=== PATIENT | female | born 1940 | race Caucasian/White ===

== ENCOUNTER 2016-10-13 13:02 | Emergency (ER) | payer BC ==
[~2016-10-13] VITALS: Ht 165.1 cm; Wt 137.9 kg
[~2016-10-13 13:02] MED LIST: ASPEC81 PO; CMD5 PO; FRS/40 PO; LEVO100T35 PO; LISI5TAB3 PO; LNX125 PO; METO100T44 PO; PARO1TAB27 PO; WARF7.5T PO
[2016-10-13 13:05] VITALS: Ht 165.1 cm; Wt 137.9 kg
[2016-10-13] MEDS ORDERED: OXYMETAZOLINE HCL 0.05% NA SPR 15 ML BTL ONE (13:06)
[2016-10-13] MEDS ORDERED: CMD5 PO (13:26)
[2016-10-13] MEDS ORDERED: LEVO100T PO (13:26)
[2016-10-13] MEDS ORDERED: LSN5 PO (13:26)
[2016-10-13] MEDS ORDERED: ASPI-435 PO (13:26)
[2016-10-13 13:31] LABS: MEAN CELL VOLUME 96.3 fL (80-100); MEAN CORPUSCULAR HEMOGLOBIN 29.8 pg (25-34); MEAN PLATELET VOLUME 9.2 fL (7.4-10.4); PLATELET COUNT 273 K/uL (130-400); RED BLOOD COUNT 4.36 M/uL (4.2-5.4); WHITE BLOOD COUNT 8.38 K/uL (4.8-10.8)
--- NOTE | 2016-10-13 13:31 | EMERGENCY ROOM VISIT NOTE ---
History Report prepared by Mireille: Jayleen Shepherd Under the Supervision of: Dr. Daniel Rios M.D. First contact with patient: 13:06 Stated Complaint: NOSE BLEED History of Present Illness The patient is a 76 year old female who presents to the Emergency Room with complaints of a constant epistaxis from the left naris since yesterday. The patient states that she has a history of a previous epistaxis 1 year ago. She states that the nosebleed came on suddenly and denies any recent cold. Per the EMT, the patient has had a clamp on her nose with no relief. The patient states that she takes Warfarin and 81 mg of aspirin daily. She states that she last had her INR level checked last week. The patient reports that she has also been coughing up blood. She denies any chest pain, shortness of breath, nausea, extremity pain, or abdominal pain. Source of History: patient, EMS Onset: yesterday Position: nose Quality: other (epistaxis) Timing: constant Associated Symptoms: No SOB, No abdominal pain, No chest pain, No nausea Note: denies extremity pain Review of Systems All systems have been listed, reviewed, and are negative other than those previously mentioned. Please see Additional Medical History Sheet. Past Medical & Surgical Medical Problems: (1) Atrial fibrillation (2) Benign hypertension (3) heart disease (4) Pacemaker Surgical Problems: (1) History of knee replacement Family History Cancer Diabetes mellitus Heart disease Hypertension Social History Smoking Status: Never Smoker Alcohol Use: none Drug Use: none Marital Status: Housing Status: lives with significant other Occupation Status: retired Current/Historical Medications Scheduled Aspirin (Aspirin 81), 81 MG PO DAILY Cephalexin Monohydrate (Keflex), 500 MG PO QID Digoxin (Digoxin), 125 MCG PO DAILY Furosemide (Lasix), 40 MG PO DAILY Levothyroxine Sodium (Synthroid), 100 MCG PO DAILY Lisinopril (Lisinopril), 5 MG PO DAILY Metoprolol Succ (Toprol Xl) (Toprol-Xl ), 200 MG PO BID Paroxetine (Paxil), 20 MG PO DAILY Warfarin Sod (Coumadin), 5 MG PO DAILY Scheduled PRN Lorazepam (Ativan), 0.5 MG PO Q6H PRN for Anxiety/Insomnia Allergies Coded Allergies: No Known Allergies (Verified , 10/13/16) Physical Exam Vital Signs Date Time Temp Pulse Resp B/P Pulse Ox O2 Delivery O2 Flow Rate FiO2 10/13/16 18:06 37.0 111 18 129/102 93 10/13/16 18:03 111 18 129/102 93 Room Air 10/13/16 17:15 127 18 129/107 92 Room Air 10/13/16 15:33 107 20 92 Room Air 2.0 137/98 10/13/16 14:18 127 18 137/113 92 Room Air 10/13/16 13:05 37.0 119 28 132/107 94 Room Air Physical Exam GENERAL: Patient awake, alert, oriented x 3. Patient follows commands. Patient does not appear toxic. Patient is adequately hydrated and well- nourished. SKIN: No erythema, pallor, cyanosis or rash HEENT: Normal head, pupils equal, reactive to light and accommodation. Oozing from left nares and dry blood on face and chest. Oral cavity and posterior pharynx appear normal. Neck: Without adenopathy, no neck vein distention. LUNGS: Rhonchi noted bilaterally No wheezes, no rales. HEART: No murmurs. No gallops. No rubs ABDOMEN: No masses, no rebound, no hepatomegaly or splenomegaly.Soft, non- tender. EXTREMITIES: No signs of trauma. 2+ non pitting pedal and pretibial edema. No calf or thigh tenderness. NEUROLOGIC: Cranial nerves II-XII within normal limits. No gross motor sensory function deficits. Medical Decision & Procedures ER Provider Diagnostic Interpretation: X ray results are stated below per my interpretation and the radiologist's interpretation. CHEST 2 VIEWS ROUTINE HISTORY: Abnormal breath sounds. rhonchi COMPARISON: Chest 02/04/2013. FINDINGS: No pneumothorax. The heart remains moderately enlarged. Left-sided dual-chamber pacemaker. No evidence for pulmonary edema. No new focal lung consolidations. No pleural effusions. No pneumothorax. IMPRESSION: Stable cardiomegaly. No acute process within the chest. Electronically signed by: Israel Denis M.D. 10/13/2016 1:54 PM Dictated Date/Time: 10/13/2016 1:53 PM Laboratory Results 10/13/16 13:20 10/13/16 15:00 10/13/16 13:20 Test 10/13/16 13:20 10/13/16 13:56 Red Blood Count 4.36 M/uL (4.2-5.4) Mean Corpuscular Volume 96.3 fL (80-100) Mean Corpuscular Hemoglobin 29.8 pg (25-34) Mean Corpuscular Hemoglobin Concent 31.0 g/dl (32-36) RDW Standard Deviation 52.6 fL (36.4-46.3) RDW Coefficient of Variation 14.8 % (11.5-14.5) Mean Platelet Volume 9.2 fL (7.4-10.4) Anion Gap 3.0 mmol/L (3-11) Est Creatinine Clear Calc Drug Dose 81.3 ml/min Estimated GFR () 79.4 Estimated GFR (Non- 68.5 BUN/Creatinine Ratio 20.8 (10-20) Calcium Level 8.3 mg/dl (8.5-10.1) Prothrombin Time 25.7 SECONDS (9.0-12.0) Prothromb Time International Ratio 2.3 (0.9-1.1) Activated Partial Thromboplast Time 37.8 SECONDS (21.0-31.0) Partial Thromboplastin Ratio 1.5 Laboratory results as stated above per my review. Medications Administered Medications (Trade) Dose Ordered Sig/Bertha Route Start Time Stop Time Status Last Admin Dose Admin Oxymetazoline HCl (Afrin 0.05% Nasal [place]) 75 sprays STK-MED ONCE .ROUTE 10/13/16 13:06 10/13/16 13:07 DC 10/13/16 13:10 2 SPRAYS Lorazepam (Ativan Inj) 1 mg NOW STAT IV 10/13/16 14:59 10/13/16 15:00 DC 10/13/16 14:59 1 MG Lorazepam (Ativan 1MG Home Pack) 0.5 homepack UD ONCE PO 10/13/16 17:15 10/13/16 17:17 DC 10/13/16 17:47 0.5 HOMEPACK Cephalexin Monohydrate (Keflex Cap) 500 mg NOW ONCE PO 10/13/16 17:15 10/13/16 17:17 DC 10/13/16 17:47 500 MG ED Course 1307: Past medical records reviewed. The patient was evaluated in room B8. A complete history and physical examination was performed. 1306: Ordered Oxymetazoline HCl 75 sprays .ROUTE. 1425: Per nursing staff, the patient's nose continues to bleed persistently. I went to the patient's bedside at this time for further assistance. Upon evaluation, the patient was gushing blood out of the left naris and the Afrin protocol did not work. I could not attempt to cauterize the patient's nose due to the bleeding so a 7.5 rhino rocket was placed up the patient's left naris. 1433: Ordered Ativan Inj 2 mg .ROUTE. 1654: I reevaluated the patient and she is resting comfortably, I discussed the exam findings with her and I discussed the treatment plan. She verbalized complete understanding and agreement. She is ready to go home. 1715: Ordered Keflex Cap 500 mg PO, Lorazepam 0.5 homepack PO. Medical Decision Nurses notes reviewed. Medical history sheet reviewed. Differential diagnosis includes but is not limited to: epistaxis, warfarin induced coagulopathy, aspiration pneumonia, and anemia. Patient had a large amount of bleeding from the left nares. I was unable to find the source of the bleed due to the heavy bleeding. The patient became very panicky and required Ativan. The first pack was unsuccessful in stopping the bleeding. I was able to place a 7.5 Rhino Rocket as deep as possible into the left nares. A small part of it remains sticking out of her nose. The patient was monitored closely. The patient will be started on antibiotics. She was instructed to stop the Coumadin for 3 days. She was also instructed to return here for packing removal in 3 days. Chest x-ray was obtained due to the rhonchi initially auscultated. That chest x-ray reveals no infiltrates or signs of aspiration. The patient was maintained on oxygen during the heavy bleeding episode but prior to discharge she was taken off and was in the low 90s on room air. Final hematocrit was 41%. Blood Pressure Screening: Patient was found to have an elevated blood pressure and was referred to their primary doctor for recheck and further treatment. Medication Reconciliation: I attest that I have personally reviewed the patient' s current medication list. Impression Primary Impression: Epistaxis Additional Impression: Panic attack Scribe Attestation The scribe's documentation has been prepared under my direction and personally reviewed by me in its entirety. I confirm that the note above accurately reflects all work, treatment, procedures, and medical decision making performed by me. Departure Information Dispostion Home / Self-Care Prescriptions Lorazepam (ATIVAN) 0.5 Mg Tab 0.5 MG PO Q6H Y for Anxiety/Insomnia, #10 TAB Prov: Daniel Rios M.D. 10/13/16 Cephalexin Monohydrate (Keflex) 500 Mg Cap 500 MG PO QID for 3 Days, #10 CAP Prov: Daniel Rios M.D. 10/13/16 Referrals Juan Yo D.O. (PCP) Carla Nath M.D. Forms HOME CARE DOCUMENTATION FORM, IMPORTANT VISIT INFORMATION, WORK / SCHOOL INSTRUCTIONS Patient Instructions ED Kathryn, My [facility] Additional Instructions 1 Keflex 4 times a day Stop Coumadin for 3 days. Return here in 3 days for removal of the pack. 1 Ativan every 6 hours as needed for panic attack. Continue all of your current medications as prescribed except for Coumadin. Problem Qualifiers
[2016-10-13 13:45] LABS: BUN/CREATININE RATIO 20.8 (10-20); CALCIUM 8.3 mg/dl (8.5-10.1); CREATININE 0.83 mg/dl (0.60-1.20); POTASSIUM 4.5 mmol/L (3.5-5.1)
--- NOTE | 2016-10-13 13:56 | DIAGNOSTIC IMAGING REPORT ---
CHEST 2 VIEWS ROUTINE HISTORY: Abnormal breath sounds. rhonchi COMPARISON: Chest 02/04/2013. FINDINGS: No pneumothorax. The heart remains moderately enlarged. Left-sided dual-chamber pacemaker. No evidence for pulmonary edema. No new focal lung consolidations. No pleural effusions. No pneumothorax. IMPRESSION: Stable cardiomegaly. No acute process within the chest. Electronically signed by: Israel Denis M.D. 10/13/2016 1:54 PM Dictated Date/Time: 10/13/2016 1:53 PM
[2016-10-13 14:14] LABS: INR 2.3 (0.9-1.1); PARTIAL THROMBOPLASTIN RATIO 1.5; PROTHROMBIN TIME (PATIENT) 25.7 SECONDS (9.0-12.0)
[2016-10-13] MEDS ORDERED: LORAZEPAM 2 MG/ML 1 ML VIAL ONE (14:33)
[2016-10-13] MEDS ORDERED: LORAZEPAM 2 MG/ML 1 ML VIAL IV STA (14:59)
[2016-10-13] MEDS ORDERED: CEPH500C PO (17:10)
[2016-10-13] MEDS ORDERED: LORA-741 PO (17:11)
[2016-10-13] MEDS ORDERED: CEPHALEXIN MONOHYDRATE 250 MG CAP PO ONE (17:15)
[2016-10-13] MEDS ORDERED: ATIVAN 1MG HOMEPACK PO ONE (17:15)
[2016-10-13 18:06] VITALS: BP 129/102; PULSE 111; TEMP 37; O2SAT 93
== END 2016-10-13 18:08 | disposition home or self-care (01) ==
LOC: EDBD 13:02 → C.EDB 13:03
DX: R04.0 Epistaxis (principal); F41.0 Panic disorder [episodic paroxysmal anxiety]; I48.91 Unspecified atrial fibrillation; I10 Essential (primary) hypertension; I51.9 Heart disease, unspecified; Z95.0 Presence of cardiac pacemaker; Z96.659 Presence of unspecified artificial knee joint; Z80.9 Family history of malignant neoplasm, unspecified; Z83.3 Family history of diabetes mellitus; Z82.49 Family history of ischemic heart disease and other diseases of the circulatory system; Z79.82 Long term (current) use of aspirin; Z79.01 Long term (current) use of anticoagulants; Z79.899 Other long term (current) drug therapy

== ENCOUNTER 2016-10-16 09:37 | Inpatient (IN) | payer BC, OTHER ==
[2016-10-16] VITALS (10 sets, daily range): BP systolic 87–137; BP diastolic 54–96; PULSE 87–152; TEMP 36.3–36.4; O2SAT 87–98; Ht 165.1 cm; Wt 131.4 kg
[~2016-10-16] VITALS: Ht 165.1 cm; Wt 131.4 kg
[~2016-10-16 09:37] MED LIST changes: -ASPEC81 PO; +ASPI-435 PO; +CEPH500C PO; +LEVO100T PO; -LEVO100T35 PO; -LISI5TAB3 PO; +LORA-741 PO; +LSN5 PO; -WARF7.5T PO
[2016-10-16] MEDS ORDERED: SODIUM CHLORIDE 0.9% 1000ML 1,000 ML IV STA (10:11)
--- NOTE | 2016-10-16 10:13 | EMERGENCY ROOM VISIT NOTE ---
History Report prepared by Mireille: Shaquille Cordoba Under the Supervision of: Dr. Lyudmila Che D.O. First contact with patient: 09:59 Chief Complaint: PACKING REMOVAL Stated Complaint: REMOVAL OF PACKING FROM NOSE Nursing Triage Summary: pt reports packing place din left nare on thursday here to get removed History of Present Illness The patient is a 76 year old female who presents to the Emergency Room for a persistent need for a packing removal that was inserted 3 days ago. She says that she had a packing placed in her left nary, and is here to get it removed. The patient notes that she has not had any more bleeding. However, the patient is having a fast heart rate here, per the nursing staff. The patient reports that she has never been told that she has had an abnormal heart rate. She last saw her family doctor last month. The patient says that she has had a bit of chest discomfort that started recently. She denies any fevers, vomiting, diarrhea, or leg swelling. She also denies any fluttering, skipping, or racing. The patient says she takes Lorazepam, and took one an hour ago. She also takes a thyroid pill and water pills. Per the patient's , the patient has had a lot of bruising recently, including one on her abdomen. She does not recall ever bumping into anything, and she says that the bruising does not hurt. She reports no history of heart problems. She does not drink alcohol, and she has never smoked. Pt seen here 2 days ago for nosebleed. Had packing placed. Told to hold her coumadin and have her INR rechecked. Source of History: patient, spouse/significant other Onset: 3 days ago Position: nose (left nare) Quality: other (packing removal) Associated Symptoms: No fevers, No vomiting, No diarrhea Note: Associated symptoms: Chest discomfort recently. Bruise on abdomen. Denies leg swelling, fluttering, skipping, or racing. Review of Systems See HPI for pertinent positives & negatives. A total of 10 systems reviewed and were otherwise negative. Past Medical & Surgical Medical Problems: (1) Atrial fibrillation (2) Benign hypertension (3) heart disease (4) Pacemaker Surgical Problems: (1) History of knee replacement Family History Cancer Diabetes mellitus Heart disease Hypertension Social History Smoking Status: Never Smoker Alcohol Use: none Drug Use: none Marital Status: Housing Status: lives with significant other Occupation Status: retired Current/Historical Medications Scheduled Aspirin (Aspirin 81), 81 MG PO DAILY Digoxin (Digoxin), 0.125 MG PO DAILY Furosemide (Lasix), 80 MG PO DAILY Levothyroxine Sodium (Synthroid), 1 TAB PO DAILY Lisinopril (Prinivil), 1 TAB PO DAILY Metoprolol Succ (Toprol Xl) (Toprol-Xl ), 200 MG PO BID Nortriptyline Hcl (Pamelor), 1 CAP PO HS Paroxetine (Paxil), 20 MG PO DAILY Spironolactone (Spironolactone), 25 MG PO DAILY Warfarin Sod (Coumadin), 5 MG PO DAILY Scheduled PRN Lorazepam (Ativan), 0.5 MG PO Q6H PRN for Anxiety/Insomnia Allergies Coded Allergies: No Known Allergies (Verified , 10/13/16) Physical Exam Vital Signs Date Time Temp Pulse Resp B/P (MAP) Pulse Ox O2 Delivery O2 Flow Rate FiO2 10/16/16 14:08 147 20 103/85 92 Room Air 10/16/16 14:01 140 20 125/84 96 Room Air 10/16/16 13:45 156 18 99/73 95 Room Air 10/16/16 13:40 151 20 106/86 94 Room Air 10/16/16 13:18 148 32 125/77 96 Room Air 10/16/16 12:50 143 22 115/87 95 Room Air 10/16/16 11:54 141 22 103/91 98 Room Air 10/16/16 11:15 166 22 119/85 96 Room Air 10/16/16 11:14 172 119/85 10/16/16 10:54 168 24 123/88 97 Room Air 10/16/16 10:15 176 26 130/89 95 Room Air 10/16/16 10:15 172 10/16/16 10:14 37.3 185 26 117/80 95 Room Air 10/16/16 10:06 95 Room Air 10/16/16 10:00 Room Air 10/16/16 09:45 37.3 185 26 117/80 97 Room Air Physical Exam GENERAL: alert, very anxious appearing, well nourished, no distress, non-toxic EYE EXAM: normal conjunctiva, PERRL and EOM's grossly intact OROPHARYNX: no exudate, no erythema, lips, buccal mucosa, and tongue normal and mucous membranes are dry; nasal packing of left nare removed without any recurrence of epistaxis. NECK: supple, no nuchal rigidity, no adenopathy, non-tender LUNGS: Breath sounds decreased, no wheezes, rhonchi, or rales HEART: Heart rate fast and irregular. ABDOMEN: abdomen soft, non-tender, normo-active bowel sounds, no masses, no rebound or guarding. BACK: Back is symmetrical on inspection and there is no deformity, no midline tenderness, no CVA tenderness. SKIN: Scattered regions of ecchymosis noted on bilateral upper extremities, and one spot on right abdomen UPPER EXTREMITIES: upper extremities are grossly normal. LOWER EXTREMITIES: No pitting edema. NEURO EXAM: Normal sensorium, cranial nerves II-XII grossly intact, normal speech, no gross weakness of arms, no gross weakness of legs. No drift. Finger to nose intact. Gross sensation intact. Medical Decision & Procedures ER Provider Diagnostic Interpretation: X-ray results have been interpreted by the radiologist and reviewed by me. CHEST ONE VIEW PORTABLE CLINICAL HISTORY: Shortness of breath. COMPARISON STUDY: Chest radiograph October 13, 2016. FINDINGS: This study is compromised by portable technique with suboptimal penetration. There is no pneumothorax. A dual lead left pacemaker is in place. Hazy bibasilar opacities are probably artifactual. There is no evidence of pulmonary edema. A left pleural effusion would be difficult to exclude. IMPRESSION: 1. Technically compromised exam due to portable technique with suboptimal penetration related to body habitus. 2. Hazy left basilar opacity which could reflect atelectasis, consolidation, atelectasis or pleural fluid. 3. Cardiomegaly without evidence of pulmonary edema. Electronically signed by: Ron Samaniego M.D. 10/16/2016 10:33 AM Dictated Date/Time: 10/16/2016 10:31 AM Laboratory Results 10/16/16 10:15 Test 10/16/16 10:10 10/16/16 10:15 Digoxin Level 0.1 ng/ml (0.8-2.0) Prothrombin Time 13.6 SECONDS (9.0-12.0) Prothromb Time International Ratio 1.3 (0.9-1.1) D-Dimer 250 ug/L FEU (0-500) Anion Gap 6.0 mmol/L (3-11) Est Creatinine Clear Calc Drug Dose 76.7 ml/min Estimated GFR () 77.1 Estimated GFR (Non- 66.6 BUN/Creatinine Ratio 15.2 (10-20) Calcium Level 8.1 mg/dl (8.5-10.1) Total Bilirubin 1.2 mg/dl (0.2-1) Aspartate Amino Transf (AST/SGOT) 15 U/L (15-37) Alanine Aminotransferase (ALT/SGPT) 19 U/L (12-78) Alkaline Phosphatase 63 U/L (45-117) Pro-B-Type Natriuretic Peptide 1767 pg/ml (0-1800) Total Protein 7.2 gm/dl (6.4-8.2) Albumin 3.4 gm/dl (3.4-5.0) Globulin 3.8 gm/dl (2.5-4.0) Albumin/Globulin Ratio 0.9 (0.9-2) Thyroid Stimulating Hormone (TSH) 6.580 uIu/ml (0.300-4.500) Laboratory results per my review. Medications Administered Medications (Trade) Dose Ordered Sig/Bertha Route Start Time Stop Time Status Last Admin Dose Admin Sodium Chloride 1,000 ml @ 125 mls/hr Q8H STAT IV 10/16/16 10:11 10/16/16 15:05 DC 10/16/16 10:11 125 MLS/HR Lorazepam 0.25 mg/ Syringe 0.25 ml @ 1 mls/min NOW ONCE IV 10/16/16 10:45 10/16/16 10:46 DC 10/16/16 10:54 1 MLS/MIN Lorazepam (Ativan Inj) 0.5 mg NOW STAT IV 10/16/16 11:07 10/16/16 11:08 DC 10/16/16 11:15 0.5 MG Metoprolol Tartrate (Lopressor Iv) 5 mg NOW STAT IV 10/16/16 11:07 10/16/16 11:08 DC 10/16/16 11:14 5 MG Diltiazem HCl 125 mg/Dextrose 125 ml @ 0 mls/hr Q0M PRN IV 10/16/16 13:00 10/16/16 15:55 DC 10/16/16 13:11 5 MLS/HR Diltiazem HCl (Cardizem Inj) 25 mg STK-MED ONCE .ROUTE 10/16/16 12:51 10/16/16 12:52 DC 10/16/16 12:54 10 MG Enoxaparin Sodium (Lovenox Inj) 130 mg 1300 ONCE SQ 10/16/16 13:00 10/16/16 13:01 DC 10/16/16 13:14 130 MG ECG Indication: tachycardia Rate (beats per minute): 183 Rhythm: atrial fibrillation Findings: PVC (occasional), no acute ischemic change, left axis deviation, other (normal QRS and QTC) Change: no significant change (compared to June 23 2007) ED Course 1002: The patient was evaluated in room A2. A complete history and physical exam was performed. 1011: Ordered NSS 1000 ml @ 125 mls/hr IV. 1045: Ordered Lorazepam 0.25mg/Syringe 0.25 ml @ 1 mls/min IV. 1056: I reevaluated the patient and her heart rate is still fast but a little better. She told me that she has a pacemaker and is taking a blood thinner. 1107: Ordered Lopressor IV 5 mg IV, Ativan Inj 0.5 mg IV. 1226: I reevaluated the patient and her rate is better, and she feels okay. 1247: Ordered Cardizem Bolus/Drip 1 ea IV. 1254: Ordered Lovenox 1 Mg/Kg 1 ea SQ. 1300: Ordered Lovenox Inj 130 mg SQ. 1307: I reevaluated the patient and her heart rate is 122. 1344: I reevaluated the patient and she looks better. The patient verbally expressed understanding and agreement of the treatment plan. The patient will be evaluated for further treatment. 1350: I discussed the patient with Dr. Guzman Ahn milk runner - she will evaluate the patient for further treatment. Medical Decision Prior records/ancillary studies reviewed. Triage Nursing notes reviewed. Differential diagnosis: Etiologies such as premature contractions, electrolyte abnormality, cardiac dysrhythmia, thyroid dysfunction, pulmonary embolism, infection, gastrointestinal, as well as others were entertained. Medication Reconciliation: I attest that I have personally reviewed the patient' s current medication list. Blood pressure screening: Patient was found to have normal blood pressure on screening and does not require follow-up. Pt poor historian and PMhx mostly gained by reviewing EMR. Pt found to be in a.fib with RVR with subtherapeutic INR. Pt initially very anxious, most likely cause of mild conversational dyspnea as sx resolved with ativan. Hr improved also. Pt given dose of metoprolol as she was listed as taking this as an outpt. No significant improvement so cardizem drip started. Dig level found to be subtherapeutic. I have a strong suspicion that pt stopped taking all her meds in the last 48 hours instead of just holding the coumadin as she was instructed. Pt denies cp/palpitations. Pt with no acute abnormalities noted on cxr. Pt with elevated trop, no acute EKG changes, likely secondary to elevated rate for unknown amount of time. Dimer negative, doubt acute PE. Doubt occult infectious etiology. Hx of thyroid dysfunction, TSH only mildly abnormal. Mildly abnormal UA, however suboptimal specimen. Given significant cardiac hx and possible component of CHF/pulm edema due to likely noncompliance with outpt diuretics, pt given dose of lasix in ER. Pt covered with lovenox due to subtherapeutic INR for a.fib, but will be monitored for any rebleeding from nare. No additional coumadin given. Consults Time Called: 1340 Consulting Physician: Dr. Guzman Ahn milk runner Returned Call: 1350 (in person) I discussed the patient with Dr. Guzman Ahn milk runner - she will evaluate the patient for further treatment. Impression Primary Impression: Atrial fibrillation with RVR Additional Impressions: Subtherapeutic anticoagulation Elevated troponin Critical Care I have personally spent greater than 45 minutes of critical care time in the direct management of this patient. This includes bedside care, interpretation of diagnostic studies, and testing, discussion with consultants, patient, and family members, and other required patient management activities. This 45 minutes is in excess of all separately billable procedures. Involved system: cardiovascular, respiratory Scribe Attestation The scribe's documentation has been prepared under my direction and personally reviewed by me in its entirety. I confirm that the note above accurately reflects all work, treatment, procedures, and medical decision making performed by me. Departure Information Dispostion Being Evaluated By Hospitalist Referrals No Doctor, Assigned (PCP) Patient Instructions My [facility] Problem Qualifiers
[2016-10-16] MEDS ORDERED: LORAZEPAM 2 MG/ML 1 ML VIAL IV STA ×3 (10:17→15:08)
[2016-10-16 10:28] LABS: BASO % 0.3 %; BASO ABS # 0.03 K/uL (0-0.2); COMPLETE YES; EOS % 0.7 %; HEMATOCRIT 38.1 % (37-47); IG% 0.4 %; LYMPH % 26.2 %; LYMPH ABS # 2.55 K/uL (1.2-3.4); MEAN CELL VOLUME 96.2 fL (80-100); MEAN CORPUSCULAR HEMOGLOBIN 30.8 pg (25-34); MEAN PLATELET VOLUME 9.6 fL (7.4-10.4); MONO % 10.2 %; NEUT % 62.2 %; PLATELET COUNT 240 K/uL (130-400); RED BLOOD COUNT 3.96 M/uL (4.2-5.4); WHITE BLOOD COUNT 9.72 K/uL (4.8-10.8)
--- NOTE | 2016-10-16 10:35 | DIAGNOSTIC IMAGING REPORT ---
CHEST ONE VIEW PORTABLE CLINICAL HISTORY: Shortness of breath. COMPARISON STUDY: Chest radiograph October 13, 2016. FINDINGS: This study is compromised by portable technique with suboptimal penetration. There is no pneumothorax. A dual lead left pacemaker is in place. Hazy bibasilar opacities are probably artifactual. There is no evidence of pulmonary edema. A left pleural effusion would be difficult to exclude. IMPRESSION: 1. Technically compromised exam due to portable technique with suboptimal penetration related to body habitus. 2. Hazy left basilar opacity which could reflect atelectasis, consolidation, atelectasis or pleural fluid. 3. Cardiomegaly without evidence of pulmonary edema. Electronically signed by: Ron Samaniego M.D. 10/16/2016 10:33 AM Dictated Date/Time: 10/16/2016 10:31 AM
[2016-10-16] MEDS ORDERED: LORAZEPAM INJ 0.25 MG in SYRINGE 0.125 ML IV ONE (10:45)
[2016-10-16 10:48] LABS: BUN/CREATININE RATIO 15.2 (10-20); CALCIUM 8.1 mg/dl (8.5-10.1); CREATININE 0.85 mg/dl (0.60-1.20); INR 1.3 (0.9-1.1); POTASSIUM 3.5 mmol/L (3.5-5.1); PROTHROMBIN TIME (PATIENT) 13.6 SECONDS (9.0-12.0)
[2016-10-16 11:05] LABS: ALB/GLOB RATIO 0.9 (0.9-2); THYROID STIMULATING HORMONE 6.58 uIu/ml (0.300-4.500)
[2016-10-16] MEDS ORDERED: METOPROLOL TARTRATE 1 MG/ML VIAL IV STA (11:07)
[2016-10-16] MEDS ORDERED: DILTIAZEM BOLUS / DRIP IV STA ×2 (12:47→14:44)
[2016-10-16] MEDS ORDERED: DILTIAZEM HCL 5 MG/ML 5 ML VIAL ONE (12:51)
[2016-10-16] MEDS ORDERED: ENOXAPARIN 1 MG/KG SQ STA (12:54)
[2016-10-16] MEDS ORDERED: ENOXAPARIN 150 MG/1ML SYR SQ ONE (13:00)
[2016-10-16] MEDS ORDERED: DILTIAZEM HCL INJ 125 MG in DEXTROSE 5% 100ML IV PRN ×2 (13:00→16:00)
[2016-10-16] MEDS ORDERED: POLYETHYLENE (MIRALAX) 17 GM PACK PO PRN (14:15)
[2016-10-16] MEDS ORDERED: MoRPHine SULFATE 2 MG/ML CARP IV PRN (14:15)
[2016-10-16] MEDS ORDERED: ACETAMINOPHEN 325 MG TAB PO PRN (14:15)
[2016-10-16] MEDS ORDERED: NITROGLYCERIN 0.4 MG SL PER TAB CHARGE SL PRN (14:15)
[2016-10-16] MEDS ORDERED: ONDANSETRON INJ 2 MG/ML 2 ML VIAL IV PRN (14:15)
[2016-10-16] MEDS ORDERED: LEVO125T72 PO (14:36)
[2016-10-16] MEDS ORDERED: NORT25CA2 PO (14:37)
[2016-10-16] MEDS ORDERED: LISI20TA3 PO (14:38)
[2016-10-16] MEDS ORDERED: SPR25 PO (14:39)
[2016-10-16] MEDS ORDERED: LORAZEPAM 0.5 MG TAB PO PRN (14:45)
[2016-10-16] MEDS ORDERED: FUROSEMIDE INJ 40 MG in SYRINGE 0 ML IV ONE (14:45)
--- NOTE | 2016-10-16 15:01 | History and Physical ---
History & Physical Date & Time of Service: Oct 16, 2016 at 14:45 Chief Complaint: Removal Of Packing From Nose Primary Care Physician: Carla Nath M.D. History of Present Illness Source: patient 76 yo F with h/o chronic atrial fibrillation on coumadin presents with asymptomatic afib with RVR. She was coming into the ER to have her Rhino Rocket removed after being placed 3 days ago for epistaxis. She was told to stay off of her coumadin which she did, but she also stayed off her Lasix during this time--she typically takes 80mg daily. She has since noticed some swelling in her legs but denies weight gain, chest pains, palpitations or shortness of breath. She is obese and wears oxygen at night but has not been formally diagnosed with NAKUL. She sees Cardiology for a history of the afib s/p pacemaker placement, NICM wtih EF 40%, DD, and severe valve disease. There were some issues recently noted with her pacemaker per the outpatient notes. She also states that she takes her Synthroid along with all her other medications in the morning, and her TSH is mildly elevated at 6 today. She has a slight elevation in her troponin to 0.147 consistent with a demand ischemia in the setting of a HR of 180 for an unknown length of time. She denies fatigue , recent colds or other illnesses, no fevers, chills, rashes, sore throat, headaches, visual changes, coughing, LINK (she states she can walk a mile without a problem), chest pain, nausea, vomiting, diarrhea, blood in stool, orthopnea. She has a h/o severe anxiety and although appears slightly tremulous and out of breath with a HR 140s during my exam, she still denies difficulty breathing or chest pain or any discomfort. Past Medical/Surgical History Medical Problems: (1) Atrial fibrillation Status: Chronic (2) Benign hypertension Status: Chronic (3) heart disease Status: Chronic (4) Pacemaker Status: Chronic Surgical Problems: (1) History of knee replacement Status: Resolved Family History Cancer Diabetes mellitus Heart disease Hypertension Social History Smoking Status: Never Smoker Smokeless Tobacco Use: No Alcohol Use: none Drug Use: none Marital Status: Housing status: lives with significant other Occupational Status: retired Immunizations History of Influenza Vaccine: Unknown Influenza Vaccine Date: Mar 08, 2007 History of Tetanus Vaccine?: Unknown History of Pneumococcal: Unknown History of Hepatitis B Vaccine: Unknown Multi-Drug Resistant Organisms History of MDRO: No Allergies Coded Allergies: No Known Allergies (Verified , 10/13/16) Home Medications Scheduled Aspirin (Aspirin 81), 81 MG PO DAILY Digoxin (Digoxin), 0.125 MG PO DAILY Furosemide (Lasix), 80 MG PO DAILY Levothyroxine Sodium (Synthroid), 1 TAB PO DAILY Lisinopril (Prinivil), 1 TAB PO DAILY Metoprolol Succ (Toprol Xl) (Toprol-Xl ), 200 MG PO BID Nortriptyline Hcl (Pamelor), 1 CAP PO HS Paroxetine (Paxil), 20 MG PO DAILY Spironolactone (Spironolactone), 25 MG PO DAILY Warfarin Sod (Coumadin), 5 MG PO DAILY Scheduled PRN Lorazepam (Ativan), 0.5 MG PO Q6H PRN for Anxiety/Insomnia Review of Systems Ten systems were reviewed and negative except as indicated in HPI. Physical Exam Vital Signs Date Time Temp Pulse Resp B/P (MAP) Pulse Ox O2 Delivery O2 Flow Rate FiO2 10/16/16 14:44 135 22 111/91 94 Room Air 10/16/16 14:08 147 20 103/85 92 Room Air 10/16/16 14:01 140 20 125/84 96 Room Air 10/16/16 13:45 156 18 99/73 95 Room Air 10/16/16 13:40 151 20 106/86 94 Room Air 10/16/16 13:18 148 32 125/77 96 Room Air 10/16/16 12:50 143 22 115/87 95 Room Air 10/16/16 11:54 141 22 103/91 98 Room Air 10/16/16 11:15 166 22 119/85 96 Room Air 10/16/16 11:14 172 119/85 10/16/16 10:54 168 24 123/88 97 Room Air 10/16/16 10:15 176 26 130/89 95 Room Air 10/16/16 10:15 172 10/16/16 10:14 37.3 185 26 117/80 95 Room Air 10/16/16 10:06 95 Room Air 10/16/16 10:00 Room Air 10/16/16 09:45 37.3 185 26 117/80 97 Room Air GEN: Obese, in no acute distress, alert and appropriate, no hypoxia or work of breathing noted. HEENT: NC/AT, PERRL, normal sclerae, EOMI, pharynx non-acute, dentures in place , MMM, no JVD noted. CARDIO: tachy rate, S1/2 heard without m/g/r LUNGS: CTA bilaterally, no crackles or wheezes, good diaphragmatic excursion. Mild wisp of rales noted initially throughout in various spots but went away with a couple of deep breaths. ABD: soft, non-tender, non-distended, no rebound or guarding, +BS, area of ecchymosis on lower right quad consistent with injection site. EXTREMITY: RP and DP palpable 2+ bilat, extremities are warm and well-perfused, trace edema in LE bilaterally. NEURO: CN 2-12 grossly intact, sensation intact throughout, no gross focal deficits. MUSC: 5/5 strength throughout, no focal deficits SKIN: warm and dry Diagnostics Laboratory Results Results Past 24 Hours Test 10/16/16 10:10 10/16/16 10:15 Range/Units Digoxin Level 0.1 0.8-2.0 ng/ml White Blood Count 9.72 4.8-10.8 K/uL Red Blood Count 3.96 4.2-5.4 M/uL Hemoglobin 12.2 12.0-16.0 g/dL Hematocrit 38.1 37-47 % Mean Corpuscular Volume 96.2 80-100 fL Mean Corpuscular Hemoglobin 30.8 25-34 pg Mean Corpuscular Hemoglobin Concent 32.0 32-36 g/dl Platelet Count 240 130-400 K/uL Mean Platelet Volume 9.6 7.4-10.4 fL Neutrophils (%) (Auto) 62.2 % Lymphocytes (%) (Auto) 26.2 % Monocytes (%) (Auto) 10.2 % Eosinophils (%) (Auto) 0.7 % Basophils (%) (Auto) 0.3 % Neutrophils # (Auto) 6.04 1.4-6.5 K/uL Lymphocytes # (Auto) 2.55 1.2-3.4 K/uL Monocytes # (Auto) 0.99 0.11-0.59 K/uL Eosinophils # (Auto) 0.07 0-0.5 K/uL Basophils # (Auto) 0.03 0-0.2 K/uL RDW Standard Deviation 53.0 36.4-46.3 fL RDW Coefficient of Variation 15.2 11.5-14.5 % Immature Granulocyte % (Auto) 0.4 % Immature Granulocyte # (Auto) 0.04 0.00-0.02 K/uL Prothrombin Time 13.6 9.0-12.0 SECONDS Prothromb Time International Ratio 1.3 0.9-1.1 D-Dimer 250 0-500 ug/L FEU Sodium Level 146 136-145 mmol/L Potassium Level 3.5 3.5-5.1 mmol/L Chloride Level 112 98-107 mmol/L Carbon Dioxide Level 28 21-32 mmol/L Anion Gap 6.0 3-11 mmol/L Blood Urea Nitrogen 13 7-18 mg/dl Creatinine 0.85 0.60-1.20 mg/dl Est Creatinine Clear Calc Drug Dose 76.7 ml/min Estimated GFR () 77.1 Estimated GFR (Non- 66.6 BUN/Creatinine Ratio 15.2 10-20 Random Glucose 117 70-99 mg/dl Calcium Level 8.1 8.5-10.1 mg/dl Total Bilirubin 1.2 0.2-1 mg/dl Aspartate Amino Transf (AST/SGOT) 15 15-37 U/L Alanine Aminotransferase (ALT/SGPT) 19 12-78 U/L Alkaline Phosphatase 63 45-117 U/L Troponin I 0.147 0-0.045 ng/ml Pro-B-Type Natriuretic Peptide 1767 0-1800 pg/ml Total Protein 7.2 6.4-8.2 gm/dl Albumin 3.4 3.4-5.0 gm/dl Globulin 3.8 2.5-4.0 gm/dl Albumin/Globulin Ratio 0.9 0.9-2 Thyroid Stimulating Hormone (TSH) 6.580 0.300-4.500 uIu/ml Diagnostic Radiology CHEST ONE VIEW PORTABLE CLINICAL HISTORY: Shortness of breath. COMPARISON STUDY: Chest radiograph October 13, 2016. FINDINGS: This study is compromised by portable technique with suboptimal penetration. There is no pneumothorax. A dual lead left pacemaker is in place. Hazy bibasilar opacities are probably artifactual. There is no evidence of pulmonary edema. A left pleural effusion would be difficult to exclude. IMPRESSION: 1. Technically compromised exam due to portable technique with suboptimal penetration related to body habitus. 2. Hazy left basilar opacity which could reflect atelectasis, consolidation, atelectasis or pleural fluid. 3. Cardiomegaly without evidence of pulmonary edema. EKG afib 180 Impression Assessment and Plan 76 yo morbidly obese female with h/o atrial fibrillation and recent epistaxis s/ p rhinorocket placement presents with asymptomatic atrial fibrillation 1. Afib w RVR-poss etiologies include but not limited to hypervolemia 2/2 not taking Lasix for the last three days along with poss salt intake, severe valvulopathies which are known, or ACS which is less likely given the lack of symptoms, or mild hypothyroidism. Notably D-dimer is negative. Cont cardizem drip and get HR down to improve cardiac contractility, consult Cardiology, evaluate pacemaker, given one dose of Lasix in ER for diuresis, monitor I/Os with Woods and dialy standing weights, trend serial enzymes. Will cont Toprol XL 200, dig and other home meds x for coumadin unless Cardiology team wants to change them. Will not put on heparin or anticoagulation in the setting of recent nosebleed with recent removal of Rhinorocket just today. Will wait until tomorrow in order to confirm hemostasis. Of note, she did get full dose Lovenox x 1 in the ER and she has been off Coumadin for 3 days per prior instructions with a subtherapeutic INR at 1.3 today. Monitor on telemetry. 2. Morbid Obesity 3. HTN-controlled, cont dilt drip for now with Toprol XL ordered for am, lis 20 , aldactone 25 4. Hypothyroidism-mildly elevated, cont current Synthroid dose and take separately from all other meds. 5. s/p Pacemaker-interrogate and appreciate Cards review of this. 6. NICM with LV dysfunction-cont aldactone, lasix, Toprol, dig. Of note, slight hypervolemia on exam with trace swelling in legs but hard to discern in obesity. She received Lasix 40 IV in the ER, but the woods that was ordered was not put in so there was no accurate output tracked. However, the patient states that she went to urinate at least three times and when then Woods was placed after this, there was another 350cc out. This was likely a good response and will transition her to her 80mg PO dosage in the morning. DVT prophy-SCDs in setting of recent bleed and removal of RhinoRocket just today FULL COde Dispo- to tele DO [facility] Level of Care Telemetry Resuscitation Status FULL RESUSCITATION VTE Prophylaxis VTE Risk Assessment Done? Y/N: Yes Risk Level: Moderate Given or contraindicated: Contraindicated Note ADDENDUM: After maxing out the diltiazem drip at 15mg/hr and in setting of relative hypotension, I contacted Dr. Mims who approved of dig loading her with 500mcg IV once and then an additional 250mcg 4 hours later. He also wanted her on a heparin drip. As full dose Lovenox was given around 1300 in the ER already, this will being around [place] tonight as discussed with the pharmacist. HR is improving on dig. DO Guzman
[2016-10-16 16:44] LABS: CKMB/CK RATIO 2.1 (0-3.0)
[2016-10-16 17:28] LABS: URINE APPEARANCE CLEAR (CLEAR); URINE BILIRUBIN NEG (NEG); URINE COLOR YELLOW; URINE EPITHELIAL CELL AUTO >30 /lpf (0-5); URINE NITRITE NEG (NEG); URINE SPECIFIC GRAVITY 1.018 (1.000-1.030); UROBILINOGEN NEG (NEG); ZZUR CULT IF INDIC CLEAN CATCH NO
[2016-10-16 17:44] LABS: MANUAL MICROSCOPIC REQUIRED? NO; REVIEW REQ? NO
[2016-10-16] MEDS ORDERED: DIGOXIN IV 500 MCG in SYRINGE 8 ML IV SCH (18:00)
[2016-10-16 19:40] LABS: BASO % 0.3 %; BASO ABS # 0.03 K/uL (0-0.2); EOS % 1.2 %; HEMATOCRIT 34.8 % (37-47); IG% 0.3 %; LYMPH % 30.6 %; LYMPH ABS # 2.89 K/uL (1.2-3.4); MEAN CELL VOLUME 95.9 fL (80-100); MEAN CORPUSCULAR HEMOGLOBIN 30.6 pg (25-34); MEAN PLATELET VOLUME 8.8 fL (7.4-10.4); MONO % 10.3 %; NEUT % 57.3 %; PLATELET COUNT 224 K/uL (130-400); RED BLOOD COUNT 3.63 M/uL (4.2-5.4); WHITE BLOOD COUNT 9.44 K/uL (4.8-10.8)
[2016-10-16 19:50] LABS: PARTIAL THROMBOPLASTIN RATIO 1.3
[2016-10-16 20:07] LABS: COMPLETE YES; MEAN CORPUSCULAR HGB CONC 31.9 g/dl (32-36)
[2016-10-16] MEDS: NORTRIPTYLINE HCL 25 MG CAP PO SCH (21:08)
[2016-10-16] MEDS: METOPROLOL SUCC 50MG EXT REL TAB PO SCH (21:10)
[2016-10-16] MEDS ORDERED: DIGOXIN IV 250 MCG in SYRINGE 9 ML IV SCH (22:00)
[2016-10-16 22:36] LABS: CKMB/CK RATIO 1.7 (0-3.0)
[2016-10-17] VITALS (8 sets, daily range): BP systolic 114–134; BP diastolic 63–84; PULSE 74–101; TEMP 36.5–36.9; O2SAT 93–100
[2016-10-17] MEDS: LEVOTHYROXINE 125 MCG TAB PO SCH (05:28)
[2016-10-17 07:35] LABS: HEMATOCRIT 36.9 % (37-47); MEAN CELL VOLUME 95.8 fL (80-100); MEAN CORPUSCULAR HEMOGLOBIN 29.4 pg (25-34); MEAN CORPUSCULAR HGB CONC 30.6 g/dl (32-36); MEAN PLATELET VOLUME 9.4 fL (7.4-10.4); PLATELET COUNT 265 K/uL (130-400); RED BLOOD COUNT 3.85 M/uL (4.2-5.4); WHITE BLOOD COUNT 10.36 K/uL (4.8-10.8)
[2016-10-17 07:48] LABS: PARTIAL THROMBOPLASTIN RATIO 1.8
[2016-10-17 08:02] LABS: CHOLESTEROL/HDL RATIO 3.1
[2016-10-17] MEDS: FUROSEMIDE 80 MG TAB PO SCH (08:29)
[2016-10-17] MEDS: PAROXETINE 20 MG TAB PO SCH (08:30)
[2016-10-17] MEDS: METOPROLOL SUCC 50MG EXT REL TAB PO SCH ×2 (08:30→19:50)
[2016-10-17] MEDS: LISINOPRIL 20 MG TAB PO SCH (08:30)
[2016-10-17] MEDS: SPIRONOLACTONE 25 MG TAB PO SCH (08:31)
[2016-10-17] MEDS ORDERED: HEPARIN IV BOLUS 3,000 UNIT in SYRINGE 0 ML IV ONE (08:45)
[2016-10-17] MEDS ORDERED: ASPIRIN 81 MG ECTAB PO SCH (09:00)
--- NOTE | 2016-10-17 10:31 | Cardiology Consultation ---
Cardiology Consultation Date of Consultation: Oct 17, 2016 Requesting Physician: Guzman Attending [employer] Supervisor: [place] (Pablo Manriquez PA-C) History of Present Illness Mrs. Ruiz is a 76 year old female who is being seen at the request of Dr. Hinds. Reason for consultation is atrial fibrillation with a rapid ventricular response. Mrs. Ruiz notes a significant episode of epistaxis on 10/12/2016, presenting to the ER on 10/13/2016 due to persistent epistaxis. INR was 2.3 on 10/13/2016. She was evaluated by Dr. Rios with heavy bleeding from the left nares observed. No source was identified. She was noted to require Ativan due to anxiety/panic attack. The left nares was successfully paced on the second attempt with a 7.5 Rhino Rocket. She was ultimately discharged on antibiotic therapy with recommendations to hold Coumadin x 3 days. She retuned on 10/16/2016 for removal of the Rhino Rocket. Upon presentation she was noted to have an asymptomatic rapid heart rate. She was noted to have an elevated Troponin. The patient's heart rates were treated with IV diltiazem then IV digoxin. With the above, as well as with resumption of her home medication regimen, her heart rates have improved significantly. She informs me today that she self discontinued all medications as of 10/13/2016 due to the concerning epistaxis as well as ecchymosis on her upper extremities. She has observed some mild increased peripheral edema. Denies chest pain. No overt palpitations. Stable exertional dyspnea. No resting dyspnea. 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 Obstructive sleep apnea Generalized anxiety disorder Hypothyroidism Esophageal reflux Tremor Venous stasis dermatitis Generalized osteoarthritis Left total knee replacement Right carpal tunnel surgery Family History: Father with an [place] at 80. Mother passed at 74 with renal failure. Brother with brain cancer. Social History: Nonsmoker. No smokeless tobacco use. No alcohol No illegal drug use. to [facility]. Retired from [employer], 33.5 years of service. (Pablo Manriquez PA-C) Review Of Systems General: Denies fever or chills. HEENT: Denies headache. Epistaxis, as above. Cardiovascular: Stable NYHA Class III dyspnea. Stable orthopnea, without PND. Mild edema. Denies chest pain or chest discomfort. No palpitations. No near syncope or syncope. Pulmonary: + Cough. + Hypoxemia. + NAKUL. No hemoptysis. Gastrointestinal: No nausea, vomiting, or diarrhea. Skin: No rash. Easy bruising/ecchymosis on all extremities. Musculoskeletal: Generalized arthritis. Neurological: Denies TIA, CVA, or history of seizures Complete review of systems is as stated above, negative, or noncontributory. (Pablo Manriquez PA-C) Allergies Coded Allergies: No Known Allergies (Verified , 10/13/16) Medications Reported Home Medications Medications Dose Route/Sig Max Daily Dose Days Date Category Spironolactone 25 Mg Tab 25 Mg PO DAILY 10/16/16 Reported Prinivil (Lisinopril) 20 Mg Tab 1 Tab PO DAILY 10/16/16 Reported Pamelor (Nortriptyline Hcl) 25 Mg Cap 1 Cap PO HS 10/16/16 Reported Synthroid (Levothyroxine Sodium) 125 Mcg Tab 1 Tab PO DAILY 10/16/16 Reported Ativan (Lorazepam) 0.5 Mg Tab 0.5 Mg PO Q6H PRN 10/13/16 Rx Aspirin 81 (Aspirin) 81 Mg Tab 81 Mg PO DAILY 10/13/16 Reported Coumadin (Warfarin Sod) 5 Mg Tab 5 Mg PO DAILY 10/13/16 Reported Digoxin 0.125 Mg Tab 0.125 Mg PO DAILY 03/03/15 Reported Lasix (Furosemide) 40 Mg Tab 80 Mg PO DAILY 06/09/07 Reported Toprol-Xl (Metoprolol Succinate) 100 Mg Tabcr 200 Mg PO BID 06/09/07 Reported Paxil (Paroxetine HCl) 20 Mg Tab 20 Mg PO DAILY 06/09/07 Reported (Pablo Manriquez PA-C) Physical Exam Vital Signs (Last 8hrs): Last 8 Hrs Date Time Temp Pulse Resp B/P (MAP) Pulse Ox O2 Delivery O2 Flow Rate FiO2 10/17/16 07:33 36.6 101 18 123/79 (94) 94 Nasal Cannula 2.0 10/17/16 07:30 Nasal Cannula 2.0 10/17/16 04:00 36.8 90 24 117/70 (86) 94 Nasal Cannula 2.0 10/17/16 04:00 94 Nasal Cannula 2.0 General Appearance: Alert and Oriented x3. NAD. Elevated BMI HEENT: Normocephalic Atraumatic. PER, EOMI, conjunctiva and sclera clear. Neck: Supple. No carotid bruits. No overt JVD. Respiratory: Diminished throughout but clear to auscultation. Cardiovascular: Irregularly irregular around 90 bpm. Soft systolic murmur at the lower left sternal border. No diastolic murmur. No rub. Abdomen: Obese. +BS. No abdominal bruits. Soft. Nontender. Extremities: Trace to 1+ nonpitting edema. Stasis changes. No clubbing. No cyanosis. Neuro: No focal deficits. Psychiatric: Somewhat anxious. (Pablo Manriquez, JENNIFER) Data Last 24 Hours Test 10/16/16 10:10 10/16/16 10:15 10/16/16 16:13 10/16/16 17:10 Digoxin Level 0.1 ng/ml White Blood Count 9.72 K/uL Red Blood Count 3.96 M/uL Hemoglobin 12.2 g/dL Hematocrit 38.1 % Mean Corpuscular Volume 96.2 fL Mean Corpuscular Hemoglobin 30.8 pg Mean Corpuscular Hemoglobin Concent 32.0 g/dl Platelet Count 240 K/uL Mean Platelet Volume 9.6 fL Neutrophils (%) (Auto) 62.2 % Lymphocytes (%) (Auto) 26.2 % Monocytes (%) (Auto) 10.2 % Eosinophils (%) (Auto) 0.7 % Basophils (%) (Auto) 0.3 % Neutrophils # (Auto) 6.04 K/uL Lymphocytes # (Auto) 2.55 K/uL Monocytes # (Auto) 0.99 K/uL Eosinophils # (Auto) 0.07 K/uL Basophils # (Auto) 0.03 K/uL RDW Standard Deviation 53.0 fL RDW Coefficient of Variation 15.2 % Immature Granulocyte % (Auto) 0.4 % Immature Granulocyte # (Auto) 0.04 K/uL Prothrombin Time 13.6 SECONDS Prothromb Time International Ratio 1.3 D-Dimer 250 ug/L FEU Sodium Level 146 mmol/L Potassium Level 3.5 mmol/L Chloride Level 112 mmol/L Carbon Dioxide Level 28 mmol/L Anion Gap 6.0 mmol/L Blood Urea Nitrogen 13 mg/dl Creatinine 0.85 mg/dl Est Creatinine Clear Calc Drug Dose 76.7 ml/min Estimated GFR () 77.1 Estimated GFR (Non- 66.6 BUN/Creatinine Ratio 15.2 Random Glucose 117 mg/dl Calcium Level 8.1 mg/dl Total Bilirubin 1.2 mg/dl Aspartate Amino Transf (AST/SGOT) 15 U/L Alanine Aminotransferase (ALT/SGPT) 19 U/L Alkaline Phosphatase 63 U/L Troponin I 0.147 ng/ml 0.142 ng/ml Pro-B-Type Natriuretic Peptide 1767 pg/ml Total Protein 7.2 gm/dl Albumin 3.4 gm/dl Globulin 3.8 gm/dl Albumin/Globulin Ratio 0.9 Thyroid Stimulating Hormone (TSH) 6.580 uIu/ml Total Creatine Kinase 187 U/L Creatine Kinase MB 3.9 ng/ml Creatine Kinase MB Ratio 2.1 Urine Color YELLOW Urine Appearance CLEAR Urine pH 5.0 Urine Specific [place] 1.018 Urine Protein NEG Urine Glucose (UA) NEG Urine Ketones NEG Urine Occult Blood 2+ Urine Nitrite NEG Urine Bilirubin NEG Urine Urobilinogen NEG Urine Leukocyte Esterase TRACE Urine WBC (Auto) 1-5 /hpf Urine RBC (Auto) 5-10 /hpf Urine Hyaline Casts (Auto) 1-5 /lpf Urine Epithelial Cells (Auto) >30 /lpf Urine Bacteria (Auto) NEG Test 10/16/16 19:34 10/16/16 21:55 10/17/16 07:13 White Blood Count 9.44 K/uL 10.36 K/uL Red Blood Count 3.63 M/uL 3.85 M/uL Hemoglobin 11.1 g/dL 11.3 g/dL Hematocrit 34.8 % 36.9 % Mean Corpuscular Volume 95.9 fL 95.8 fL Mean Corpuscular Hemoglobin 30.6 pg 29.4 pg Mean Corpuscular Hemoglobin Concent 31.9 g/dl 30.6 g/dl Platelet Count 224 K/uL 265 K/uL Mean Platelet Volume 8.8 fL 9.4 fL Neutrophils (%) (Auto) 57.3 % Lymphocytes (%) (Auto) 30.6 % Monocytes (%) (Auto) 10.3 % Eosinophils (%) (Auto) 1.2 % Basophils (%) (Auto) 0.3 % Neutrophils # (Auto) 5.41 K/uL Lymphocytes # (Auto) 2.89 K/uL Monocytes # (Auto) 0.97 K/uL Eosinophils # (Auto) 0.11 K/uL Basophils # (Auto) 0.03 K/uL RDW Standard Deviation 52.3 fL 51.5 fL RDW Coefficient of Variation 15.2 % 15.0 % Immature Granulocyte % (Auto) 0.3 % Immature Granulocyte # (Auto) 0.03 K/uL Nucleated RBC Absolute Count (auto) 0.02 K/uL Nucleated Red Blood Cells % 0.2 % Activated Partial Thromboplast Time 34.3 SECONDS 46.2 SECONDS Partial Thromboplastin Ratio 1.3 1.8 Total Creatine Kinase 212 U/L Creatine Kinase MB 3.7 ng/ml Creatine Kinase MB Ratio 1.7 Troponin I 0.128 ng/ml Triglycerides Level 64 mg/dl Cholesterol Level 132 mg/dl HDL Cholesterol 42 mg/dl LDL Cholesterol, Calculated 77 mg/dl VLDL Cholesterol, Calculated 13 mg/dl Cholesterol/HDL Ratio 3.1 June 23, 2016 TTE Interpretation Summary (as per Dr. Acosta): The rhythm is atrial fibrillation. The qualitative LV ejection fraction is 40-44% (mildly reduced). There is mild diffuse left ventricular hypokinesis. Severe biatrial enlargement. Moderate to severe mitral regurgitation. The mitral regurgitation jet is posteriorly directed. Severe tricuspid regurgitation is present. Dilated IVC with reduced collapsibility with sniff indicates an elevated right atrial pressure of 15 mmHg. The estimated pulmonary artery systolic pressure is 50mm Hg. Compared to last available study changes are noted as follows: Estimated systolic PAP has increased. Admission CXR, as per Dr. Samaniego, was technically compromised exam due to portable technique with suboptimal penetration related to body habitus. There was a hazy left basilar opacity which could reflect atelectasis, consolidation, atelectasis or pleural fluid and cardiomegaly without evidence of pulmonary edema. EKG dated and timed 16-OCT-2016 @ 09:58:24: Atrial fibrillation with rapid ventricular response (183 bpm) with occasional ventricular-paced complexes, left axis deviation, incomplete right bundle branch block, old septal infarct. EKG dated and timed 17-OCT-2016 @ 06:42:36: Atrial fibrillation at 88 bpm with occasional ventricular-paced complexes, left axis deviation, incomplete left bundle block, nonspecific T wave abnormality. Telemetry: Chronic atrial fibrillation with a rapid ventricular response that is coming under better control as time progresses. Device interrogation: Pending. (Pablo Manriquez PA-C) Assessment & Plan Chronic atrial fibrillation, Tachy-Yared Syndrome status post pacemaker implantation as detailed above. The rapid ventricular response is undoubtably due to self discontinuation of high dose beta-ken therapy and digoxin, as well anxiety/panic Recommend resumption of her prior AV deepti blocking regimen - Toprol XL 200 mg BID and digoxin 125 mcg/day Wean to discontinue diltiazem drip As an outpatient, if she continues to have rapid rates despite high dose beta -ken and digoxin consideration will be made for AV deepti ablation +/- device upgrade. Resume Coumadin anticoagulation Discontinue ASA given epistaxis and significant extremity ecchymosis. Elevated Troponin Suspect demand ischemia secondary to the above. ? Need for outpatient pharmacological stress testing. Systolic and diastolic congestive heart failure. Nonischemic cardiomyopathy. EF 40-44%. Valvular heart disease Recommend resumption of her outpatient diuretic regimen - Furosemide 80 mg/ day and spironolactone 25 mg/day Hypertension Controlled Nocturnal hypoxemia Continue supplemental oxygen therapy at night. History of mild obstructive sleep apnea Patient may benefit from reevaluation and treatment. Generalized anxiety disorder. (Pablo Manriquez PA-C) CARDIOLOGY ATTENDING ADDENDUM: The patient was seen and personally examined. Agree with Pablo Manriquez PA-C's findings and plans as documented above with additions as noted below. S: patient feeling well. She and her note she still has mild confusion. Exam: CV: irregular, 1/6 SM Ext: 2+ LE edema, not to much different from recent baseline Impression: AF with RVR, volume overload due to missed medications. Rate back to 80s and Edema improved back on home medications. Recent epistaxis Confusion Plan: Perhaps confusion is remnant of ativan, will continue to observe her for now. continue heparin infusion, add back coumadin. add back home oral furosemide. (Yandel Sarah,D.O.)
[2016-10-17] MEDS ORDERED: WARFARIN SOD 5 MG TAB PO ONE (13:00)
[2016-10-17] MEDS: HEPARIN 25,000 UNIT/500ML D5W 500 ML IV PRN ×2 (14:17→16:24)
[2016-10-17 15:58] LABS: PARTIAL THROMBOPLASTIN RATIO 2.7
[2016-10-17] MEDS ORDERED: DIGOXIN 0.125 MG TAB PO SCH (16:00)
--- NOTE | 2016-10-17 17:12 | Discharge Instructions ---
Discharge Instructions Date of Service Oct 17, 2016. Admission Reason for Admission: Atrial Fibrillation With Rvr Discharge Discharge Diagnosis / Problem: ATRIAL FIBRILLATION /NOSE BLEED Discharge Goals Goal(s): Decrease discomfort, Diagnostic testing Activity Recommendations Activity Limitations: resume your previous activity . Instructions / Follow-Up Instructions / Follow-Up HOSPITAL FOLLOW UP on Thursday10/20/2016 @ 1:[address] Carla Nath MD Family Practice [facility] PLEASE DO NOT STOP TAKING ANY OF YOUR MEDICATION WITH OUT TALKING WITH YOUR DOCTOR LAB WORK : PT/INR ON 10/20/16 CARDIOLOGY FOLLOW UP ON 12/15/2016 @ 9:[address] Yandel Sarah DO Cardiology, [facility] Current Hospital Diet Patient's current hospital diet: AHA Diet (Heart Healthy) Discharge Diet Recommended Diet: AHA Diet (Heart Healthy) Pending Studies Studies pending at discharge: yes List of pending studies: LAB WORK : PT/INR ON 10/20/16 Laboratory Results Lipid Panel Test 10/17/16 07:13 Range/Units Triglycerides Level 64 0-150 mg/dl Cholesterol Level 132 0-200 mg/dl HDL Cholesterol 42 mg/dl Cholesterol/HDL Ratio 3.1 LDL Cholesterol, Calculated 77 mg/dl Medical Emergencies . Who to Call and When: Medical Emergencies: If at any time you feel your situation is an emergency, please call 911 immediately. . Non-Emergent Contact Non-Emergency issues call your: Primary Care Provider . . "Provider Documentation" section prepared by Edith Hawk. . VTE Core Measure Inpt VTE Proph given/why not?: Warfarin (Coumadin), Contraindicated
[2016-10-17] MEDS: NORTRIPTYLINE HCL 25 MG CAP PO SCH (21:55)
[2016-10-17 22:30] LABS: PARTIAL THROMBOPLASTIN RATIO 2.4
--- NOTE | 2016-10-18 00:32 | Progress Note ---
Internal Med Progress Note Date of Service: Oct 17, 2016. LATE ENTRY PT SEEN APPROX 11;30 AM Provider Documentation: SUBJECTIVE: no complain of chest pain or SOB feels fine no episode of nasal bleed on IV heparin OBJECTIVE: Vital Signs-as noted below Exam: General-no sign of distress Eyes-sclera non icteric Lungs-CTA Heart-irregular Abdomen-soft, non tender Extremities-trace bilat lower ext edema Neuro-AAO x3, no focal deficit Lab data as noted below. ASSESSMENT & PLAN: AFIB RVR : possible due to not taking beta ken pt had not taken Toprol XL 200 mg BID and Digoxin for severe nose bleed / epistaxis HR now remains rate controlled after medication resumed iV heparin bridge ordered for sub therapeutic INR EPISTAXIS : resolved H&H stable pt is continued with Coumadin /Iv Heparin DVT PROPHYLAXIS IV Heparin /Coumadin DISPOSITION Discharge home when medically stable Vital Signs: Date Time Temp Pulse Resp B/P (MAP) Pulse Ox O2 Delivery O2 Flow Rate FiO2 10/17/16 23:22 36.9 86 20 129/80 (96) 99 Nasal Cannula 2.0 10/17/16 20:00 Nasal Cannula 2.0 10/17/16 19:29 36.7 89 18 124/75 (91) 93 Room Air 10/17/16 16:21 69 10/17/16 16:00 Nasal Cannula 2.0 10/17/16 15:43 36.6 80 19 114/73 (87) 100 Nasal Cannula 2.0 10/17/16 11:49 36.5 78 19 134/84 (101) 94 Nasal Cannula 2.0 10/17/16 11:14 74 94 10/17/16 11:06 Nasal Cannula 2.0 10/17/16 07:33 36.6 101 18 123/79 (94) 94 Nasal Cannula 2.0 10/17/16 07:30 Nasal Cannula 2.0 10/17/16 04:00 36.8 90 24 117/70 (86) 94 Nasal Cannula 2.0 10/17/16 04:00 94 Nasal Cannula 2.0 Lab Results: Results Past 24 Hours Test 10/17/16 07:13 10/17/16 15:30 10/17/16 22:08 Range/Units White Blood Count 10.36 4.8-10.8 K/uL Red Blood Count 3.85 4.2-5.4 M/uL Hemoglobin 11.3 12.0-16.0 g/dL Hematocrit 36.9 37-47 % Mean Corpuscular Volume 95.8 80-100 fL Mean Corpuscular Hemoglobin 29.4 25-34 pg Mean Corpuscular Hemoglobin Concent 30.6 32-36 g/dl RDW Standard Deviation 51.5 36.4-46.3 fL RDW Coefficient of Variation 15.0 11.5-14.5 % Platelet Count 265 130-400 K/uL Mean Platelet Volume 9.4 7.4-10.4 fL Activated Partial Thromboplast Time 46.2 71.4 63.6 21.0-31.0 SECONDS Partial Thromboplastin Ratio 1.8 2.7 2.4 Triglycerides Level 64 0-150 mg/dl Cholesterol Level 132 0-200 mg/dl HDL Cholesterol 42 mg/dl LDL Cholesterol, Calculated 77 mg/dl VLDL Cholesterol, Calculated 13 mg/dl Cholesterol/HDL Ratio 3.1
[2016-10-18 04:44] VITALS: BP 134/76; PULSE 79; TEMP 36.8; O2SAT 96
[2016-10-18] MEDS: LEVOTHYROXINE 125 MCG TAB PO SCH (06:00)
[2016-10-18 08:15] LABS: INR 1.2 (0.9-1.1); PARTIAL THROMBOPLASTIN RATIO 2.2; PROTHROMBIN TIME (PATIENT) 12.6 SECONDS (9.0-12.0)
[2016-10-18 08:31] VITALS: BP 116/68; PULSE 87; TEMP 36.8; O2SAT 97
[2016-10-18] MEDS: METOPROLOL SUCC 50MG EXT REL TAB PO SCH (08:40)
[2016-10-18] MEDS: PAROXETINE 20 MG TAB PO SCH (08:40)
[2016-10-18] MEDS: LISINOPRIL 20 MG TAB PO SCH (08:40)
[2016-10-18] MEDS: SPIRONOLACTONE 25 MG TAB PO SCH (08:40)
[2016-10-18] MEDS: FUROSEMIDE 80 MG TAB PO SCH (08:40)
[2016-10-18 10:46] VITALS: BP 110/71; PULSE 82; TEMP 36.4; O2SAT 97
--- NOTE | 2016-10-18 10:58 | Cardiology Follow-Up ---
Subjective General Date of Service: Oct 18, 2016. Chief Complaint: follow-up confusion, atrial fibrillation with rapid ventricular rate Pt evaluation today including: conversation w/ patient, conversation w/ family , physical exam History of Present Illness The patient is a 76 year old female seen in cardiology follow-up. Her was sitting at the bedside today. She notes feeling well. She notes her confusion has resolved. On telemetry she remains in chronic atrial fibrillation which is rate controlled at present she denies any epistaxis. Barlow catheter is in place with noted mild hematuria in the Barlow catheter tubing. She remains on heparin, and received a dose of Coumadin yesterday. Allergies Coded Allergies: No Known Allergies (Verified , 10/13/16) Social History Smoking Status: Never Smoker Hx Tobacco Use In Past Year?: No Hx Alcohol Use - Type And Amou: No Hx Substance Use - Type And Am: No Problem List Medical Problems: (1) Atrial fibrillation with RVR Status: Acute (2) Epistaxis Status: Acute (3) Panic attack Status: Acute Physical Exam Vital Signs Last Vital Signs Documentation Date Time Temp Pulse Resp B/P (MAP) Pulse Ox O2 Delivery O2 Flow Rate FiO2 10/18/16 10:46 36.4 82 20 110/71 (84) 97 Room Air 10/18/16 04:44 2.0 Physical Exam Constitutional: Level of Distress: NAD ENMT: normal ENT inspection Lungs: Auscultation: no wheezing, no rales/crackles, no rhonchi Cardiovascular: Heart Auscultation: II/ MIREYA, irregular rate rhythm Extremities: no cyanosis, pertinent finding (1-2+ bilateral lower extremity edema, chronic) Neurologic: Gait & Station: pertinent finding (follows commands, transient confusion is improved) Assessment and Plan Assessment and Plan Impression: 76-year-old female 1. Atrial fibrillation with rapid ventricular rate having been off of her home high-dose metoprolol 2. Chronic right-sided heart failure, severe tricuspid regurgitation, mild left ventricular systolic dysfunction, nonischemic cardiomyopathy 3. Recent epistaxis Plan: The patient had recently been evaluated in the emergency room and needed a nasal tampon for symptomatic epistaxis. She had been counseled to hold her Coumadin however she held all of her cardiac medications including her high- dose metoprolol and high-dose furosemide and subsequently had been found to be in atrial fibrillation with rapid ventricular rate as well as viable overload. She's back to her baseline on her home beta ken and furosemide dose. At present, recommend discontinuation of unfractionated heparin and continuing her Coumadin. Her typical Coumadin dose is 5 mg daily and she follows with [facility] anticoagulation clinic. Her device is watched closely in the outpatient pacemaker clinic I do not think pacemaker interrogation is necessary at the present time. She has had a recent generator change, there have been no battery-related issues. She had intermittent confusion that was associated with anxiety which had her nosebleed and had received Ativan. The symptoms have resolved. Recommend discharge on Coumadin without bridge therapy as I do not want to precipitate another epistaxis episode. Laboratory Results Last 24 Hours Test 10/17/16 15:30 10/17/16 22:08 10/18/16 07:45 Activated Partial Thromboplast Time 71.4 SECONDS 63.6 SECONDS 58.1 SECONDS Partial Thromboplastin Ratio 2.7 2.4 2.2 Prothrombin Time 12.6 SECONDS Prothromb Time International Ratio 1.2
[2016-10-18 12:17] VITALS: BP 110/71; PULSE 82; TEMP 36.4; O2SAT 97
--- NOTE | 2016-10-18 12:57 | Progress Note ---
Internal Med Progress Note Date of Service: Oct 18, 2016. Provider Documentation: SUBJECTIVE: no further episode of epistaxis feels fine HR remains in controlled afib no complain of chest pain or SOB stable to be discharge home today OBJECTIVE: Vital Signs-as noted below Exam: General-no sign of distress Eyes-sclera non icteric Lungs-CTA Heart-irregular Abdomen-soft, non tender Extremities-trace bilat lower ext edema Neuro-AAO x3, no focal deficit Lab data as noted below. ASSESSMENT & PLAN: AFIB RVR : HR remains controlled now after resuming beta ken pt had not taken Toprol XL 200 mg BID and Digoxin for severe nose bleed / epistaxis evaluated by Cardiology stable to be discharge home no new changes made on Medication pt is counselled not to stop taking medication with out consulting with Her Physician EPISTAXIS : resolved -no further episode H&H stable pt will not be discharged with bridge anticoagulation tx resume Coumadin 5 mg daily schedule to have PT/INR check on Thursday10/20/16 DVT PROPHYLAXIS Coumadin DISPOSITION Discharge home today Vital Signs: Date Time Temp Pulse Resp B/P (MAP) Pulse Ox O2 Delivery O2 Flow Rate FiO2 10/18/16 12:17 36.4 82 20 97 Room Air 10/18/16 11:42 Room Air 10/18/16 10:46 36.4 82 20 110/71 (84) 97 Room Air 10/18/16 08:31 36.8 87 18 116/68 (84) 97 Room Air 10/18/16 08:00 Room Air 10/18/16 04:44 36.8 79 18 134/76 (95) 96 Nasal Cannula 2.0 10/18/16 04:00 Nasal Cannula 2.0 10/18/16 00:01 Nasal Cannula 2.0 10/17/16 23:22 36.9 86 20 129/80 (96) 99 Nasal Cannula 2.0 10/17/16 20:00 Nasal Cannula 2.0 10/17/16 19:29 36.7 89 18 124/75 (91) 93 Room Air 10/17/16 16:21 69 10/17/16 16:00 Nasal Cannula 2.0 10/17/16 15:43 36.6 80 19 114/73 (87) 100 Nasal Cannula 2.0 Lab Results: Results Past 24 Hours Test 10/17/16 15:30 10/17/16 22:08 6/3/17 07:45 Range/Units Activated Partial Thromboplast Time 71.4 63.6 58.1 21.0-31.0 SECONDS Partial Thromboplastin Ratio 2.7 2.4 2.2 Prothrombin Time 12.6 9.0-12.0 SECONDS Prothromb Time International Ratio 1.2 0.9-1.1
--- NOTE | 2016-10-18 12:58 | Discharge Summary ---
Discharge Summary Date of Service Oct 18, 2016. Discharge Summary Admission Date: Oct 16, 2016 at 14:18 Discharge Date: Oct 18, 2016 Discharge Disposition: Home Principal Diagnosis: ATRIAL FIBRILLATION /NOSE BLEED Consultations: [facility] Medication Reconciliation Continued Medications: Digoxin (Digoxin) 0.125 Mg Tab 0.125 MG PO DAILY, #34 Furosemide (Lasix) 40 Mg Tab 80 MG PO DAILY, 0 Refills Levothyroxine Sodium (Synthroid) 125 Mcg Tab 1 TAB PO DAILY, 5 Refills Lisinopril (Prinivil) 20 Mg Tab 1 TAB PO DAILY, 5 Refills Lorazepam (Ativan) 0.5 Mg Tab 0.5 MG PO Q6H PRN for Anxiety/Insomnia, #10 TAB Metoprolol Succ (Toprol Xl) (Toprol-Xl ) 100 Mg Tabcr 200 MG PO BID, 0 Refills Nortriptyline Hcl (Pamelor) 25 Mg Cap 1 CAP PO HS Paroxetine (Paxil) 20 Mg Tab 20 MG PO DAILY, 0 Refills Spironolactone (Spironolactone) 25 Mg Tab 25 MG PO DAILY Warfarin Sod (Coumadin) 5 Mg Tab 5 MG PO DAILY Discontinued Medications: Aspirin (Aspirin 81) 81 Mg Tab 81 MG PO DAILY Referrals At Discharge Follow up Referrals: [facility] Referral - 12/15/16 with Yandel Sarah D.O. Physician Referral - 10/20/16 with Carla Nath M.D. Admission Information HPI (per Admitting provider): 76 yo F with h/o chronic atrial fibrillation on coumadin presents with asymptomatic afib with RVR. She was coming into the ER to have her Rhino Rocket removed after being placed 3 days ago for epistaxis. She was told to stay off of her coumadin which she did, but she also stayed off her Lasix during this time--she typically takes 80mg daily. She has since noticed some swelling in her legs but denies weight gain, chest pains, palpitations or shortness of breath. She is obese and wears oxygen at night but has not been formally diagnosed with NAKUL. She sees Cardiology for a history of the afib s/p pacemaker placement, NICM wtih EF 40%, DD, and severe valve disease. There were some issues recently noted with her pacemaker per the outpatient notes. She also states that she takes her Synthroid along with all her other medications in the morning, and her TSH is mildly elevated at 6 today. She has a slight elevation in her troponin to 0.147 consistent with a demand ischemia in the setting of a HR of 180 for an unknown length of time. She denies fatigue , recent colds or other illnesses, no fevers, chills, rashes, sore throat, headaches, visual changes, coughing, LINK (she states she can walk a mile without a problem), chest pain, nausea, vomiting, diarrhea, blood in stool, orthopnea. She has a h/o severe anxiety and although appears slightly tremulous and out of breath with a HR 140s during my exam, she still denies difficulty breathing or chest pain or any discomfort. Physical Exam (per Admitting): GEN: Obese, in no acute distress, alert and appropriate, no hypoxia or work of breathing noted. HEENT: NC/AT, PERRL, normal sclerae, EOMI, pharynx non-acute, dentures in place , MMM, no JVD noted. CARDIO: tachy rate, S1/2 heard without m/g/r LUNGS: CTA bilaterally, no crackles or wheezes, good diaphragmatic excursion. Mild wisp of rales noted initially throughout in various spots but went away with a couple of deep breaths. ABD: soft, non-tender, non-distended, no rebound or guarding, +BS, area of ecchymosis on lower right quad consistent with injection site. EXTREMITY: RP and DP palpable 2+ bilat, extremities are warm and well-perfused, trace edema in LE bilaterally. NEURO: CN 2-12 grossly intact, sensation intact throughout, no gross focal deficits. MUSC: 5/5 strength throughout, no focal deficits SKIN: warm and dry Hospital Course AFIB RVR : HR remains controlled now after resuming beta ken pt had not taken Toprol XL 200 mg BID and Digoxin for severe nose bleed / epistaxis evaluated by Cardiology stable to be discharge home no new changes made on Medication pt is counselled not to stop taking medication with out consulting with Her Physician EPISTAXIS : resolved -no further episode H&H stable pt will not be discharged with bridge anticoagulation tx resume Coumadin 5 mg daily schedule to have PT/INR check on Thursday10/20/16 DVT PROPHYLAXIS Coumadin DISPOSITION Discharge home today Total time spent on discharge = This includes examination of the patient, discharge planning, medication reconciliation, and communication with other providers. Discharge Instructions Discharge Instructions Date of Service Oct 17, 2016. Admission Reason for Admission: Atrial Fibrillation With Rvr Discharge Discharge Diagnosis / Problem: ATRIAL FIBRILLATION /NOSE BLEED Discharge Goals Goal(s): Decrease discomfort, Diagnostic testing Activity Recommendations Activity Limitations: resume your previous activity . Instructions / Follow-Up Instructions / Follow-Up HOSPITAL FOLLOW UP on Thursday10/20/2016 @ 1:[address] Carla Nath MD Family Practice [facility] PLEASE DO NOT STOP TAKING ANY OF YOUR MEDICATION WITH OUT TALKING WITH YOUR DOCTOR LAB WORK : PT/INR ON 10/20/16 CARDIOLOGY FOLLOW UP ON 12/15/2016 @ 9:[address] Yandel Sarah DO Cardiology, [facility] Current Hospital Diet Patient's current hospital diet: AHA Diet (Heart Healthy) Discharge Diet Recommended Diet: AHA Diet (Heart Healthy) Pending Studies Studies pending at discharge: yes List of pending studies: LAB WORK : PT/INR ON 10/20/16 Laboratory Results Lipid Panel Test 10/17/16 07:13 Range/Units Triglycerides Level 64 0-150 mg/dl Cholesterol Level 132 0-200 mg/dl HDL Cholesterol 42 mg/dl Cholesterol/HDL Ratio 3.1 LDL Cholesterol, Calculated 77 mg/dl Medical Emergencies . Who to Call and When: Medical Emergencies: If at any time you feel your situation is an emergency, please call 911 immediately. . Non-Emergent Contact Non-Emergency issues call your: Primary Care Provider . . "Provider Documentation" section prepared by Edith Hawk. . VTE Core Measure Inpt VTE Proph given/why not?: Warfarin (Coumadin), Contraindicated Additional Copies To Carla Nath M.D. Yandel Sarah,D.O.
[2016-10-18] MEDS ORDERED: WARFARIN SOD 5 MG TAB PO SCH (16:00)
== END 2016-10-18 12:39 | disposition home or self-care (01) | DRG 309 ==
LOC: C.EDB 09:39 → C.2T 14:18 → ENRESERV 14:36
PROVIDERS: ADMIT Hospitalist; ATTEND Hospitalist
DX: I48.2 Chronic atrial fibrillation (principal); I24.8 Other forms of acute ischemic heart disease; I50.42 Chronic combined systolic (congestive) and diastolic (congestive) heart failure; Z68.42 Body mass index [BMI] 45.0-49.9, adult; R79.1 Abnormal coagulation profile; R09.02 Hypoxemia; I42.9 Cardiomyopathy, unspecified; Z48.00 Encounter for change or removal of nonsurgical wound dressing; F41.1 Generalized anxiety disorder; I11.0 Hypertensive heart disease with heart failure; E03.9 Hypothyroidism, unspecified; E66.9 Obesity, unspecified; Z51.81 Encounter for therapeutic drug level monitoring; Z79.899 Other long term (current) drug therapy; Z79.82 Long term (current) use of aspirin; Z91.128 Patient's intentional underdosing of medication regimen for other reason; Z86.79 Personal history of other diseases of the circulatory system; Z95.0 Presence of cardiac pacemaker; Z82.49 Family history of ischemic heart disease and other diseases of the circulatory system; Z83.3 Family history of diabetes mellitus

== ENCOUNTER 2017-04-04 03:46 | Emergency (ER) | payer BC, OTHER ==
[~2017-04-04] VITALS: Ht 165.1 cm; Wt 127.3 kg
[~2017-04-04 03:46] MED LIST changes: -ASPI-435 PO; -CEPH500C PO; -LEVO100T PO; +LEVO125T72 PO; +LISI20TA3 PO; -LORA-741 PO; -LSN5 PO; +NORT25CA2 PO; +SPR25 PO
[2017-04-04 03:49] VITALS: TEMP 36.8; Ht 165.1 cm; Wt 127.3 kg
[2017-04-04] MEDS ORDERED: OXYMETAZOLINE HCL 0.05% NA SPR 15 ML BTL ONE (03:57)
[2017-04-04 04:25] LABS: BASO % 0.3 %; BASO ABS # 0.02 K/uL (0-0.2); COMPLETE YES; EOS % 1.7 %; HEMATOCRIT 39.6 % (37-47); IG% 0.3 %; LYMPH % 37.6 %; MEAN CELL VOLUME 90.8 fL (80-100); MEAN CORPUSCULAR HEMOGLOBIN 28.4 pg (25-34); MEAN CORPUSCULAR HGB CONC 31.3 g/dl (32-36); MEAN PLATELET VOLUME 9.9 fL (7.4-10.4); MONO % 8.7 %; NEUT % 51.4 %; PLATELET COUNT 237 K/uL (130-400); RED BLOOD COUNT 4.36 M/uL (4.2-5.4); WHITE BLOOD COUNT 7.71 K/uL (4.8-10.8)
[2017-04-04] MEDS ORDERED: CYCL10TA7 PO (04:31)
[2017-04-04] MEDS ORDERED: METO-648 PO (04:31)
[2017-04-04] MEDS ORDERED: PRX/40 PO (04:34)
[2017-04-04] MEDS ORDERED: LSX40 PO (04:34)
[2017-04-04 04:54] LABS: BLOOD UREA NITROGEN 18 mg/dl (7-18); BUN/CREATININE RATIO 21.7 (10-20); CALCIUM 8.2 mg/dl (8.5-10.1); CARBON DIOXIDE 33 mmol/L (21-32); CHLORIDE 105 mmol/L (98-107); CREATININE 0.81 mg/dl (0.60-1.20); GLUCOSE 104 mg/dl (70-99); SODIUM 142 mmol/L (136-145)
[2017-04-04 05:19] LABS: INR 1.8 (0.9-1.1); PARTIAL THROMBOPLASTIN RATIO 1.3
--- NOTE | 2017-04-04 05:33 | EMERGENCY ROOM VISIT NOTE ---
History First contact with patient: 03:54 Chief Complaint: NOSE BLEED (MINOR) Stated Complaint: BLOODY NOSE History of Present Illness The patient is a 77 year old female who presents to the Emergency Room with complaints of intermittent nosebleed for the past week who is currently on Coumadin. INR checked 1 month ago and normal. Patient states she felt slightly week when walking about but this is now resolved. Patient does not have an ENT doctor. She's been here multiple times for epistaxis. Patient denies chest pain, dyspnea, bruising, cough, recent illness. No injury to the area. Review of Systems See HPI for pertinent positives & negatives. A total of 10 systems reviewed and were otherwise negative. Past Medical/Surgical History Medical Problems: (1) Atrial fibrillation (2) Benign hypertension (3) heart disease (4) Pacemaker Surgical Problems: (1) History of knee replacement Family History Cancer Diabetes mellitus Heart disease Hypertension Social History Smoking Status: Never Smoker Alcohol Use: none Drug Use: none Marital Status: Housing Status: lives with significant other Occupation Status: retired Current/Historical Medications Scheduled Digoxin (Digoxin), 0.125 MG PO DAILY Furosemide (Lasix), 80 MG PO QAM Furosemide (Furosemide), 40 MG PO early afternoon Levothyroxine Sodium (Synthroid), 1 TAB PO DAILY Lisinopril (Prinivil), 20 MG PO DAILY Metoprolol Succinate (Toprol Xl), 200 MG PO BID Nortriptyline Hcl (Pamelor), 1 CAP PO HS Paroxetine (Paroxetine HCl), 40 MG PO DAILY Spironolactone (Spironolactone), 25 MG PO QAM Warfarin Sod (Coumadin), 5 MG PO DAILY Scheduled PRN Cyclobenzaprine HCl (Cyclobenzaprine HCl), 10 MG PO HS PRN for Muscle Spasms Physical Exam Vital Signs Date Time Temp Pulse Resp B/P (MAP) Pulse Ox O2 Delivery O2 Flow Rate FiO2 04/04/17 05:31 87 18 124/81 95 Room Air 04/04/17 03:49 36.8 90 20 123/76 94 Room Air Physical Exam VITALS: Vitals are noted on the nurse's note and reviewed by myself. Vital signs stable. GENERAL: Pleasant female, in no acute distress, nondiaphoretic, well-developed well-nourished. SKIN: The skin was without rashes, erythema, or bruising. There is no tenting of the skin. Capillary reflex less than 2 seconds. HEAD: Normocephalic atraumatic. EARS: External auditory canals clear, tympanic membranes pearly dickens without erythema or effusion bilaterally. EYES: Pupils equal round and reactive to light and accommodation. Conjunctivae without injection, sclerae without icterus. Extraocular movements intact. NOSE: Patent, right turbinates without inflammation, right nostril without active bleeding. Left nostril with minimal bleeding from the Kiesselbach's plexus. No sinus tenderness. MOUTH: Mucous membranes moist. Pharynx without erythema or exudate. Uvula midline. Airway patent. Tongue does not deviate. NECK: Supple without nuchal rigidity. No lymphadenopathy. No thyromegaly. Cervical spine is nontender. No JVD. HEART: Regular rate and rhythm LUNGS: Clear to auscultation bilaterally without wheezes, rales or rhonchi. No dullness to percussion. No retractions or accessory muscle use. ABDOMEN: Positive bowel sounds x 4. Normal tympanic percussion. Soft, protuberant, obese, nontender, without masses or organomegaly. Piper sign negative. No guarding or rebound tenderness. MUSCULOSKELETAL: No muscle atrophy, erythema, noted. NEURO: Patient was alert and oriented to person place and time. Normal sensation to light and sharp touch. No focal neurological deficits. Medical Decision & Procedures Laboratory Results 04/04/17 04:10 Red Blood Count 4.36, Mean Corpuscular Volume 90.8, Mean Corpuscular Hemoglobin 28.4, Mean Corpuscular Hemoglobin Concent 31.3, Mean Platelet Volume 9.9, Neutrophils (%) (Auto) 51.4, Lymphocytes (%) (Auto) 37.6, Monocytes (%) (Auto) 8.7, Eosinophils (%) (Auto) 1.7, Basophils (%) (Auto) 0.3, Neutrophils # (Auto) 3.97, Lymphocytes # (Auto) 2.90, Monocytes # (Auto) 0.67, Eosinophils # (Auto) 0.13, Basophils # (Auto) 0.02 04/04/17 04:10 04/04/17 05:02 Test 04/04/17 04:10 04/04/17 05:02 White Blood Count 7.71 K/uL (4.8-10.8) Red Blood Count 4.36 M/uL (4.2-5.4) Hemoglobin 12.4 g/dL (12.0-16.0) Hematocrit 39.6 % (37-47) Mean Corpuscular Volume 90.8 fL (80-100) Mean Corpuscular Hemoglobin 28.4 pg (25-34) Mean Corpuscular Hemoglobin Concent 31.3 g/dl (32-36) Platelet Count 237 K/uL (130-400) Mean Platelet Volume 9.9 fL (7.4-10.4) Neutrophils (%) (Auto) 51.4 % Lymphocytes (%) (Auto) 37.6 % Monocytes (%) (Auto) 8.7 % Eosinophils (%) (Auto) 1.7 % Basophils (%) (Auto) 0.3 % Neutrophils # (Auto) 3.97 K/uL (1.4-6.5) Lymphocytes # (Auto) 2.90 K/uL (1.2-3.4) Monocytes # (Auto) 0.67 K/uL (0.11-0.59) Eosinophils # (Auto) 0.13 K/uL (0-0.5) Basophils # (Auto) 0.02 K/uL (0-0.2) RDW Standard Deviation 58.3 fL (36.4-46.3) RDW Coefficient of Variation 17.5 % (11.5-14.5) Immature Granulocyte % (Auto) 0.3 % Immature Granulocyte # (Auto) 0.02 K/uL (0.00-0.02) Anion Gap 4.0 mmol/L (3-11) Est Creatinine Clear Calc Drug Dose 78.1 ml/min Estimated GFR () 81.2 Estimated GFR (Non- 70.1 BUN/Creatinine Ratio 21.7 (10-20) Calcium Level 8.2 mg/dl (8.5-10.1) Prothrombin Time 20.0 SECONDS (9.0-12.0) Prothromb Time International Ratio 1.8 (0.9-1.1) Activated Partial Thromboplast Time 34.3 SECONDS (21.0-31.0) Partial Thromboplastin Ratio 1.3 ED Course Prior records/ancillary studies reviewed. Triage Nursing notes reviewed. Additional history obtained from family. The patient's history was concerning for epistaxis. Differential diagnosis: Etiologies such as anterior epistaxis, coagulopathy, traumatic injury, fracture , septal hematoma, posterior epistaxis as well as other pathologies were entertained. Physical examination findings: As above. Anterior bleeding source. ER treatment provided: Direct pressure Intranasal phenylephrine Anterior nasal packing as above Keflex PO On reassessment the patient felt better. Diagnostics interpreted by me: The labs revealed stable H&H. INR 1.8 This appears to be consistent with epistaxis. This is a recurrent issue for the patient. She has seen ENT. She is advised to hold her Coumadin today. She is advised follow-up ENT and family care or here in the ER sooner for rebleeding, weakness, chest pain, worsening signs or symptoms or as needed. Patient was observed for over an hour and no rebleeding. She is well- appearing. By the evaluation outlined above emergent etiologies such as coagulopathy, traumatic injury, fracture, septal hematoma, posterior epistaxis, as well as others were deemed relatively unlikely. The pt informed about the findings as listed above. All questions were answered and pleased with the treatment. Return instructions were outlined and the patient was discharged in stable condition. Referral: The patient was referred to ENT or ER and PCP for a recheck of the current condition Case reviewed with my Attending Medical Decision as above Medication Reconcilliation Current Medication List: was personally reviewed by me Blood Pressure Screening Patient's blood pressure: Normal blood pressure Impression Primary Impression: Anterior epistaxis Departure Information Dispostion Home / Self-Care Condition GOOD Referrals Carla Nath M.D. (PCP) Patient Instructions My [facility] [place] Additional Instructions Avoid scratching, rubbing, picking, or blowing your nose. The pulp drier your nasal passages the more likely they are to bleed. The following two products are available [id number] at most drug stores/pharmacies. [place] nasal spray or similar generic saline spray to keep the nose moist 3 to 4 times a day. If bleeding recurs apply direct pressure for an uninterrupted 20 minutes. On and off pressure is much less effective because it will disturb the clots that are forming. If the bleeding is still a problem after 20 minutes or is so heavy despite the pressure return to the emergency department. Continue current medications except hold your Coumadin today. Follow-up with ENT. Call for an appointment Follow-up with your primary care physician in 2 to 3 days for a recheck of your current condition.
--- NOTE | 2017-04-04 05:35 | EMERGENCY ROOM VISIT NOTE ---
ED Visit Note First contact with patient: 03:54 I saw this patient in conjunction with Pat Castro PA-C. I agree with her decision-making and treatment plan.
[2017-04-04 06:00] VITALS: BP 124/78; PULSE 81; O2SAT 98
== END 2017-04-04 06:03 | disposition home or self-care (01) ==
LOC: C.EDB 03:47
DX: R04.0 Epistaxis (principal); I48.91 Unspecified atrial fibrillation; I10 Essential (primary) hypertension; I51.9 Heart disease, unspecified; Z95.0 Presence of cardiac pacemaker; Z98.890 Other specified postprocedural states; Z79.01 Long term (current) use of anticoagulants; Z79.899 Other long term (current) drug therapy; Z80.9 Family history of malignant neoplasm, unspecified; Z83.3 Family history of diabetes mellitus; Z82.49 Family history of ischemic heart disease and other diseases of the circulatory system

== ENCOUNTER 2018-06-23 08:43 | Inpatient (IN) ==
[2018-06-23 09:39] LABS: Basophils # (auto) 0.02 K/uL (0-0.2); Basophils % (auto) 0.2 %; Eosinophils # (auto) 0.05 K/uL (0-0.5); Eosinophils % (auto) 0.4 %; Hemoglobin 13.5 g/dL (12.0-16.0); Immature Granulocytes # (auto) 0.05 K/uL (0.00-0.02); Immature Granulocytes % (auto) 0.4 %; Lymphocytes # (auto) 1.93 K/uL (1.2-3.4); Lymphocytes % (auto) 15.2 %; Mean Corpuscular Hgb Conc 32.9 g/dL (32-36); Mean Corpuscular Volume 92.6 fL (80-100); Mean Platelet Volume 9.2 fL (7.4-10.4); Monocytes # (auto) 1.58 K/uL (0.11-0.59); Monocytes % (auto) 12.4 %; Neutrophils # (auto) 9.07 K/uL (1.4-6.5); Neutrophils % (auto) 71.4 %; Platelet Count 270 K/uL (130-400); RDW Coefficient of Variation 15.1 % (11.5-14.5); RDW Standard Deviation 50.7 fL (36.4-46.3); Red Blood Count 4.43 M/uL (4.2-5.4)
[2018-06-23 09:44] LABS: INR 3.1 (0.9-1.1); Partial Thromboplastin Ratio 1.6; Partial Thromboplastin Time 40.8 Seconds (21.0-31.0)
--- NOTE | 2018-06-23 09:56 | XRay Report ---
XR chest 1V portable CLINICAL HISTORY: Chest pain. Bilateral lower extremity swelling. COMPARISON STUDY: Chest radiograph October 13, 2016. FINDINGS: Left subclavian pacemaker is in place. Moderate cardiomegaly is unchanged. There is moderat e cardiomegaly. Apparent hazy left basilar opacity is unchanged. There is no evidence for pulmonary e clarence. IMPRESSION: 1. Stable cardiomegaly without evidence for pulmonary edema. 2. Apparent hazy left basilar opacity which likely reflects artifact, epicardial fat pad or atelectas is. Electronically signed by: Ron Samaniego M.D. 06/23/2018 9:54 AM
[2018-06-23] MEDS ORDERED: NYSTATIN APPL EXT STA (09:58)
[2018-06-23 09:59] LABS: Albumin Level 3.3 gm/dl (3.4-5.0); BUN Creatinine Ratio 32.8 (10-20); Calcium 8.9 mg/dl (8.5-10.1); Creatinine Clr Calc Pharmacy 44.4 ml/min; Est GFR (African American) 41.3; Est GFR (Non-African American) 35.6; Potassium 4.2 mmol/L (3.5-5.1)
[2018-06-23 10:04] LABS: Albumin Globulin Ratio 0.7 (0.9-2); Bilirubin,Total 1.5 mg/dl (0.2-1); Globulin 4.6 gm/dl (2.5-4.0); Total Protein 7.9 gm/dl (6.4-8.2); Troponin I 0.038 ng/ml (0-0.045)
[2018-06-23] MEDS: METOPROLOL TARTRATE 1 MG/ML VIAL IV PRN ×3 (10:09→12:24)
[2018-06-23] MEDS ORDERED: NYSTATIN POWDER 15GM BTL EXT ONE (10:15)
--- NOTE | 2018-06-23 10:28 | CT Scan Report ---
CT SCAN OF THE BRAIN WITHOUT IV CONTRAST CLINICAL HISTORY: Change in mental status. COMPARISON STUDY: CT of the brain dated 06/23/2007 TECHNIQUE: Unenhanced axial CT scan of the brain is performed from the vertex to the skull base. A do se lowering technique was utilized adhering to the principles of ALARA. CT DOSE: 537.48 mGy.cm FINDINGS: Brain parenchyma: There are age-related involutional changes noting mild subcortical and periventric ular microangiopathic change. There is no hemorrhage, mass effect, or evidence of acute territorial i schemia by CT criteria. A small chronic lacunar infarct is identified in the left internal capsule. G ray-white matter differentiation is preserved. No extra-axial fluid collection is seen. Ventricles, sulci, cisterns: Prominent secondary to involutional change. Intracranial vasculature: There is atherosclerotic calcification of the cavernous carotid and vertebr al arteries. Calvarium: Unremarkable. Sinuses and mastoids: The visualized paranasal sinuses are clear. There is a small right mastoid effu jayden. The left mastoid air cells are well pneumatized. Orbits: The bony orbits are grossly intact. IMPRESSION: There is no hemorrhage, mass effect, or evidence of acute territorial ischemia by CT leslye reynolds. Electronically signed by: Adelso Morales M.D. 06/23/2018 10:27 AM
[2018-06-23] MEDS ORDERED: SODIUM CHLORIDE 0.9% 1000ML 250 ML IV ONE (12:44)
[2018-06-23] MEDS ORDERED: dilTIAZem HCl 5 MG/ML 5 ML VIAL IV STA (12:44)
[2018-06-23] MEDS ORDERED: cefTRIAXone SODIUM 1,000 MG in DEXTROSE 5% 50 ML IV SCH (13:49)
[2018-06-23 13:53] LABS: Magnesium 2.4 mg/dl (1.8-2.4)
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
[2018-06-23 14:35] LABS: Appearance Urine Cloudy (Clear); Bacteria Urine Automated Negative (Negative); Bilirubin Urine Negative (Negative); Color Urine Yellow; Glucose Urine UA Negative (Negative); Ketones Urine Negative (Negative); Leukocyte Esterase Urine Negative (Negative); Nitrite Urine Negative (Negative); Protein Urine Negative (Negative); Urobilinogen Urine Negative (Negative); WBC Urine Automated 0 /hpf (0-5)
[2018-06-23] MEDS ORDERED: cefTRIAXone SODIUM 1000MG/50ML D5W ONE (15:03)
[2018-06-23] MEDS ORDERED: POLYETHYLENE (MIRALAX) 17 GM PACK PO PRN (15:42)
[2018-06-23] MEDS ORDERED: MAGNESIUM HYDROXIDE SUSP 30 ML UDC PO PRN (15:42)
[2018-06-23] MEDS ORDERED: ACETAMINOPHEN 325 MG TAB PO PRN (15:42)
[2018-06-23] MEDS ORDERED: ALUMINUM/MAGNESIUM SUSP 30 ML UDC PO PRN (15:42)
--- NOTE | 2018-06-23 15:43 | Emergency Department Note ---
Entered by Jayleen Shepherd acting as a scribe for Jenn Michael MD History of Present Illness General Chief complaint: Cardiac Assessment Source: patient and family History of Present Illness Provider complaint: tachycardia Onset (ago): hour(s) (today) Location: chest Quality: + other (tachycardia) Associated symptoms: + confusion (staring and nothing and talking); no shortness of breath The patient is a 78 year old female who presents to the Emergency Room with complaints of tachycardia today. The patient reports a history of atrial fibrillation and states that she has a pacemaker. Per family, the patient missed a medication. She states that she takes Paxil, a blood pressure medication, a water pill, and Coumadin. Per family, the patient did not "sound normal" last night on the phone. Her friend states that the patient has had a problem with fluid build up before. The patient denies feeling short of breath. Her family states that last night the patient was staring at nothing and talking , and her family states concern that the patient was having a stroke at this time. Per friend, the patient's legs are usually not this red. Home Medications Home Medications Medication Instructions Recorded Confirmed Type acetaminophen [Tylenol Extra 1,000 mg PO Q6H PRN 06/23/18 06/23/18 History Strength] atorvastatin 20 mg PO PM 06/23/18 06/23/18 History cyclobenzaprine 10 mg PO TID PRN 06/23/18 06/23/18 History digoxin 0.125 mg PO QAM 06/23/18 06/23/18 History furosemide 40 mg PO QDL 06/23/18 06/23/18 History furosemide 80 mg PO QAM 06/23/18 06/23/18 History levothyroxine 125 mcg PO QAM 06/23/18 06/23/18 History lisinopril 20 mg PO QAM 06/23/18 06/23/18 History metoprolol succinate 200 mg PO BID 06/23/18 06/23/18 History nortriptyline 25 mg PO HS 06/23/18 06/23/18 History paroxetine HCl 40 mg PO QAM 06/23/18 06/23/18 History spironolactone 25 mg PO QAM 06/23/18 06/23/18 History warfarin 5 mg PO HS 06/23/18 06/23/18 History Allergies Allergy/AdvReac Type Severity Reaction Status Date / Time No Known Allergies Allergy Verified 06/23/18 09:15 Past Med/Surg History Medical History Prolonged Q-T interval on ECG GERD (gastroesophageal reflux disease) Yeast dermatitis HTN (hypertension) Hypothyroidism Mild obstructive sleep apnea Tricuspid valve regurgitation Anxiety History of tachycardia-bradycardia syndrome Current use of halfway anticoagulation Chronic atrial fibrillation Systolic CHF Atrial fibrillation (Chronic) Surgical History History of carpal tunnel release Pacemaker (Chronic) History of knee replacement (Resolved) S/P placement of cardiac pacemaker (Resolved) Family History Brother Brain cancer Mother Kidney malignancy Father Heart attack Social History Current Living Situation: Spouse Current Living Situation Comment: ambulates with walker Feels Safe at Home: Yes Safety Concerns: Feels Safe At This Time Smoking Status: Never smoker Do You Dip or Chew Tobacco: No Hx Alcohol Use: No Hx Substance Use: No Beliefs That Will Affect Care: None Communication Ability: Effective Review of Systems See HPI for pertinent positives & negatives. and A total of 10 systems reviewed and were otherwise negative Physical Exam Vital Signs Vital Signs - 24 hr 06/23/18 19:57 06/23/18 20:00 06/23/18 23:20 Temperature 37.1 C 36.4 C L Temperature Source Oral Oral Pulse Rate Pulse Rate [Apical] 114 H 101 H Pulse Rhythm [Apical] Pulse Strength [Apical] Respiratory Rate 22 18 Respiratory Effort / Characteristics Respiratory Depth Normal Normal Respiratory Pattern Blood Pressure [Left Arm] Blood Pressure [Right Arm] 106/83 110/75 Blood Pressure Mean [Left Arm] Blood Pressure Mean [Right Arm] 90 86 Blood Pressure Position [Left Arm] Blood Pressure Position [Right Arm] Lying Pulse Oximetry 95 95 Oxygen Delivery Method Nasal Cannula Nasal Cannula Oxygen Flow Rate 1 1.5 06/24/18 02:35 06/24/18 08:00 06/24/18 08:01 Temperature 37.0 C 36.6 C Temperature Source Oral Oral Pulse Rate 107 H Pulse Rate [Apical] 96 H 110 H Pulse Rhythm [Apical] Irregular Pulse Strength [Apical] Normal Respiratory Rate 16 22 Respiratory Effort / Characteristics Non-Labored Spontaneous SOB on Exertion Non-Labored Spontaneous Respiratory Depth Normal Normal Respiratory Pattern Regular Regular Blood Pressure [Left Arm] 100/49 L Blood Pressure [Right Arm] 103/83 Blood Pressure Mean [Left Arm] 66 Blood Pressure Mean [Right Arm] 89 Blood Pressure Position [Left Arm] Sitting Blood Pressure Position [Right Arm] Pulse Oximetry 97 94 Oxygen Delivery Method Nasal Cannula Nasal Cannula Oxygen Flow Rate 2 2 2 06/24/18 10:52 06/24/18 15:42 06/24/18 15:46 Temperature 36.4 C L 36.4 C L Temperature Source Oral Oral Pulse Rate 110 H Pulse Rate [Apical] 112 H 102 H Pulse Rhythm [Apical] Pulse Strength [Apical] Respiratory Rate 23 18 Respiratory Effort / Characteristics Respiratory Depth Respiratory Pattern Blood Pressure [Left Arm] 126/86 110/79 Blood Pressure [Right Arm] Blood Pressure Mean [Left Arm] 99 89 Blood Pressure Mean [Right Arm] Blood Pressure Position [Left Arm] Lying Lying Blood Pressure Position [Right Arm] Pulse Oximetry 96 97 Oxygen Delivery Method Nasal Cannula Nasal Cannula Oxygen Flow Rate 2.0 3 Vital signs reviewed. General: Morbidly obese and chronically-ill female, in no significant distress. Malodorous. Somewhat disheveled HEENT: No scleral icterus, PERRLA, neck supple. Atraumatic. Cardiovascular: Rapid and irregular, no extra sounds. Pulmonary: Clear to auscultation bilaterally, normal work of breathing. Abdomen: Obese, soft, nontender, nondistended, positive bowel sounds. Large area of yeast dermatitis between the abdominal fold and groin. Musculoskeletal: Atraumatic, 1+ pitting edema to the bilateral lower extremities. Neurologic: Patient awake alert and oriented x 3 Skin: Warm, dry, no rash. Right greater than left lower extremity erythema, question venous stasis changes Course 0947: Past medical records reviewed. The patient was evaluated in room A12B, and a complete history and physical examination were performed. 1159: The patient is still in rapid afib. She is getting her third dose of Cardizem. 1236: I updated the patient and family who verbalized agreement and understanding of the treatment plan. 1246: I discussed the patient's case with Rosaura Ahn who will evaluate the patient for further management. Consultations Consultation #1: Rosaura Ahn Time: 12:46 Administered Medications Acetaminophen (Tylenol) 650 mg PO Q4H PRN PRN Reason: Pain or Fever Stop: 07/23/18 15:41 Last Admin: 06/24/18 12:37 Dose: 650 mg Atorvastatin Calcium (Lipitor) 20 mg PO PM [facility] Stop: 07/23/18 20:59 Last Admin: 06/23/18 21:10 Dose: 20 mg Digoxin (Lanoxin) 0.125 mg PO DAILY@1600 [facility] Stop: 07/24/18 15:59 Last Admin: 06/24/18 15:42 Dose: 0.125 mg Vancomycin HCl 2,750 mg/ (Sodium Chloride) 555 mls @ 200 mls/hr IV NOW STA Stop: 06/24/18 17:47 Last Admin: 06/24/18 16:18 Dose: 200 mls/hr Levothyroxine Sodium (Synthroid) 125 mcg PO DAILYBB [facility] Stop: 07/24/18 06:29 Last Admin: 06/24/18 05:57 Dose: 125 mcg Metoprolol Succinate (Toprol Xl) 100 mg PO BID [facility] Stop: 07/24/18 14:59 Last Admin: 06/24/18 15:45 Dose: 100 mg Nortriptyline HCl (Pamelor) 25 mg PO HS [facility] Stop: 07/23/18 20:59 Last Admin: 06/23/18 21:10 Dose: 25 mg Nystatin/Triamcinolone Acetonide (Mycolog Ii) 1 appln EXT BID [facility] Stop: 07/23/18 20:59 Last Admin: 06/24/18 07:58 Dose: 1 appln Admin: 06/23/18 21:11 Dose: 1 appln Paroxetine HCl (Paxil) 40 mg PO QAM [facility] Stop: 07/24/18 08:59 Last Admin: 06/24/18 07:58 Dose: 40 mg Warfarin Sodium (Coumadin) 2.5 mg PO DAILY@1600 [facility] Stop: 07/23/18 15:59 Last Admin: 06/23/18 17:02 Dose: 2.5 mg Discontinued Medications Ceftriaxone Sodium (Rocephin) Confirm Administered Dose 1,000 mg .ROUTE .STK- MED ONE Stop: 06/23/18 15:04 Last Admin: 06/23/18 15:06 Dose: 1,000 mg Diltiazem HCl (Cardizem) 15 mg IV NOW STA Stop: 06/23/18 12:45 Last Admin: 06/23/18 12:59 Dose: 15 mg Sodium Chloride (Nss 1000ml) 250 mls @ 999 mls/hr IV .Q16M ONE Stop: 06/23/18 12:59 Last Infusion: 06/23/18 13:14 Dose: 0 mls/hr Admin: 06/23/18 10:36 Dose: 999 mls/hr Ceftriaxone Sodium 1,000 mg/ (Dextrose) 50 mls @ 100 mls/hr IV Q24H KATIE; Protocol Stop: 07/03/18 13:48 Last Admin: 06/23/18 15:06 Dose: Not Given Sodium Chloride (Nss 1000ml) 1,000 mls @ 75 mls/hr IV .[id number] KATIE Stop: 06/24/18 05:19 Last Infusion: 06/24/18 05:56 Dose: 0 mls/hr Admin: 06/23/18 16:21 Dose: 75 mls/hr Ceftriaxone Sodium 1,000 mg/ (Dextrose) 50 mls @ 100 mls/hr IV Q24H KATIE; Protocol Stop: 07/04/18 13:59 Last Infusion: 06/24/18 14:45 Dose: 0 mls/hr Admin: 06/24/18 14:08 Dose: 100 mls/hr Furosemide 40 mg/ Syringe 4 mls @ 4 mls/min IV ONE ONE Stop: 06/24/18 14:56 Last Admin: 06/24/18 15:43 Dose: 4 mls/min Ketorolac Tromethamine (Toradol) 15 mg IV ONE ONE Stop: 06/24/18 14:46 Last Admin: 06/24/18 15:43 Dose: Not Given Ketorolac Tromethamine (Toradol) Confirm Administered Dose 15 mg .ROUTE .STK- MED ONE Stop: 06/24/18 15:18 Last Admin: 06/24/18 15:22 Dose: 15 mg Metoprolol Succinate (Toprol Xl) 200 mg PO BID KATIE Stop: 07/23/18 20:59 Last Admin: 06/24/18 07:59 Dose: Not Given Metoprolol Succinate (Toprol Xl) 200 mg PO NOW STA Stop: 06/23/18 16:51 Last Admin: 06/23/18 17:02 Dose: 200 mg Metoprolol Tartrate (Lopressor) 5 mg IV Q5M PRN PRN Reason: Tachycardia Stop: 07/23/18 09:50 Last Admin: 06/23/18 12:24 Dose: 5 mg Admin: 06/23/18 10:49 Dose: 5 mg Admin: 06/23/18 10:09 Dose: 5 mg Nystatin (Mycostatin) 1 appln EXT ONE ONE Stop: 06/23/18 10:16 Last Admin: 06/23/18 11:41 Dose: 1 appln Medical Decision Making Differential Diagnosis Differential diagnosis: Etiologies such as shingles, musculoskeletal pain, pericarditis, myocarditis, cardiac ischemia, pericardial tamponade, pneumonia, pneumothorax, pleural effusion, hemothorax, pleurisy, aortic pathology, pulmonary embolism, intra- abdominal process, as well as others were considered. Medical Records Attestation: I reviewed the patient's medical records. Home Medications Current Medication List: was personally reviewed by me Laboratory Data Attestation: I reviewed the patient's lab results. Result diagrams: 06/24/18 06:40 06/24/18 06:40 Lab Results 06/23/18 06/23/18 06/23/18 Range/Units 09:19 09:19 09:19 WBC 12.70 H (4.8-10.8) K/uL RBC 4.43 (4.2-5.4) M/uL Hgb 13.5 (12.0-16.0) g/dL Hct 41.0 (37-47) % MCV 92.6 (80-100) fL MCH 30.5 (25-34) pg MCHC 32.9 (32-36) g/dL RDW Std Deviation 50.7 H (36.4-46.3) fL RDW Coeff of [place] 15.1 H (11.5-14.5) % Plt Count 270 (130-400) K/uL MPV 9.2 (7.4-10.4) fL Immature Gran % (Auto) 0.4 % Neut % (Auto) 71.4 % Lymph % (Auto) 15.2 % [place] % (Auto) 12.4 % Eos % (Auto) 0.4 % Baso % (Auto) 0.2 % Immature Gran # (Auto) 0.05 H (0.00-0.02) K/uL Neut # (Auto) 9.07 H (1.4-6.5) K/uL Lymph # (Auto) 1.93 (1.2-3.4) K/uL [place] # (Auto) 1.58 H (0.11-0.59) K/uL Eos # (Auto) 0.05 (0-0.5) K/uL Baso # (Auto) 0.02 (0-0.2) K/uL ESR (0-21) mm/hr PT 29.0 H (9.0-12.0) Seconds INR 3.1 H (0.9-1.1) APTT 40.8 H (21.0-31.0) Seconds PTT Ratio 1.6 Sodium 136 (136-145) mmol/L Potassium 4.2 (3.5-5.1) mmol/L Chloride 101 (98-107) mmol/L Carbon Dioxide 25 (21-32) mmol/L Anion Gap 10.0 (3-11) BUN 46 H (7-18) mg/dl Creatinine 1.41 H (0.6-1.2) mg/dl Est Cr Clr Drug Dosing 44.4 ml/min Est GFR ( Amer) 41.3 Est GFR (Non-Af Amer) 35.6 BUN/Creatinine Ratio 32.8 H (10-20) Glucose 120 H (70-99) mg/dl Lactate (0.4-2.0) mmol/L Calcium 8.9 (8.5-10.1) mg/dl Magnesium (1.8-2.4) mg/dl Total Bilirubin 1.5 H (0.2-1) mg/dl AST 41 H (15-37) U/L ALT 28 (12-78) U/L Alkaline Phosphatase 65 (45-117) U/L Troponin I 0.038 (0-0.045) ng/ml C-Reactive Protein (0-0.29) mg/dl Total Protein 7.9 (6.4-8.2) gm/dl Albumin 3.3 L (3.4-5.0) gm/dl Globulin 4.6 H (2.5-4.0) gm/dl Albumin/Globulin Ratio 0.7 L (0.9-2) TSH (0.300-4.500) uIu/ml Urine Color Urine Appearance (Clear) Urine pH (4.5-7.5) Ur Specific [place] (1.000-1.030) Urine Protein (Negative) Urine Glucose (UA) (Negative) Urine Ketones (Negative) Urine Blood (Negative) Urine Nitrite (Negative) Urine Bilirubin (Negative) Urine Urobilinogen (Negative) Ur Leukocyte Esterase (Negative) Urine WBC (Auto) (0-5) /hpf Urine RBC (Auto) (0-4) /hpf U Hyaline Cast (Auto) (0-5) /lpf U Epithel Cells (Auto) (0-5) /lpf Urine Bacteria (Auto) (Negative) Nasal Screen MRSA (PCR) (Negative) 06/23/18 06/23/18 06/23/18 Range/Units 09:19 11:42 16:01 WBC (4.8-10.8) K/uL RBC (4.2-5.4) M/uL Hgb (12.0-16.0) g/dL Hct (37-47) % MCV (80-100) fL MCH (25-34) pg MCHC (32-36) g/dL RDW Std Deviation (36.4-46.3) fL RDW Coeff of Elizabeth (11.5-14.5) % Plt Count (130-400) K/uL MPV (7.4-10.4) fL Immature Gran % (Auto) % Neut % (Auto) % Lymph % (Auto) % [place] % (Auto) % Eos % (Auto) % Baso % (Auto) % Immature Gran # (Auto) (0.00-0.02) K/uL Neut # (Auto) (1.4-6.5) K/uL Lymph # (Auto) (1.2-3.4) K/uL [place] # (Auto) (0.11-0.59) K/uL Eos # (Auto) (0-0.5) K/uL Baso # (Auto) (0-0.2) K/uL ESR (0-21) mm/hr PT (9.0-12.0) Seconds INR (0.9-1.1) APTT (21.0-31.0) Seconds PTT Ratio Sodium (136-145) mmol/L Potassium (3.5-5.1) mmol/L Chloride (98-107) mmol/L Carbon Dioxide (21-32) mmol/L Anion Gap (3-11) BUN (7-18) mg/dl Creatinine (0.6-1.2) mg/dl Est Cr Clr Drug Dosing ml/min Est GFR ( Amer) Est GFR (Non-Af Amer) BUN/Creatinine Ratio (10-20) Glucose (70-99) mg/dl Lactate 1.3 (0.4-2.0) mmol/L Calcium (8.5-10.1) mg/dl Magnesium 2.4 (1.8-2.4) mg/dl Total Bilirubin (0.2-1) mg/dl AST (15-37) U/L ALT (12-78) U/L Alkaline Phosphatase (45-117) U/L Troponin I (0-0.045) ng/ml C-Reactive Protein (0-0.29) mg/dl Total Protein (6.4-8.2) gm/dl Albumin (3.4-5.0) gm/dl Globulin (2.5-4.0) gm/dl Albumin/Globulin Ratio (0.9-2) TSH 2.830 (0.300-4.500) uIu/ml Urine Color Yellow Urine Appearance Cloudy H (Clear) Urine pH 5.0 (4.5-7.5) Ur Specific [place] 1.020 (1.000-1.030) Urine Protein Negative (Negative) Urine Glucose (UA) Negative (Negative) Urine Ketones Negative (Negative) Urine Blood Trace H (Negative) Urine Nitrite Negative (Negative) Urine Bilirubin Negative (Negative) Urine Urobilinogen Negative (Negative) Ur Leukocyte Esterase Negative (Negative) Urine WBC (Auto) 0 (0-5) /hpf Urine RBC (Auto) 0-4 (0-4) /hpf U Hyaline Cast (Auto) 5-10 H (0-5) /lpf U Epithel Cells (Auto) 5-10 H (0-5) /lpf Urine Bacteria (Auto) Negative (Negative) Nasal Screen MRSA (PCR) (Negative) 06/23/18 06/24/18 06/24/18 Range/Units 16:08 06:40 06:40 WBC 9.15 (4.8-10.8) K/uL RBC 4.24 (4.2-5.4) M/uL Hgb 12.5 (12.0-16.0) g/dL Hct 39.9 (37-47) % MCV 94.1 (80-100) fL MCH 29.5 (25-34) pg MCHC 31.3 L (32-36) g/dL RDW Std Deviation 52.3 H (36.4-46.3) fL RDW Coeff of [place] 15.4 H (11.5-14.5) % Plt Count 259 (130-400) K/uL MPV 9.4 (7.4-10.4) fL Immature Gran % (Auto) 0.3 % Neut % (Auto) 71.6 % Lymph % (Auto) 15.6 % [place] % (Auto) 10.9 % Eos % (Auto) 1.4 % Baso % (Auto) 0.2 % Immature Gran # (Auto) 0.03 H (0.00-0.02) K/uL Neut # (Auto) 6.54 H (1.4-6.5) K/uL Lymph # (Auto) 1.43 (1.2-3.4) K/uL [place] # (Auto) 1.00 H (0.11-0.59) K/uL Eos # (Auto) 0.13 (0-0.5) K/uL Baso # (Auto) 0.02 (0-0.2) K/uL ESR (0-21) mm/hr PT 30.8 H (9.0-12.0) Seconds INR 3.3 H (0.9-1.1) APTT (21.0-31.0) Seconds PTT Ratio Sodium (136-145) mmol/L Potassium (3.5-5.1) mmol/L Chloride (98-107) mmol/L Carbon Dioxide (21-32) mmol/L Anion Gap (3-11) BUN (7-18) mg/dl Creatinine (0.6-1.2) mg/dl Est Cr Clr Drug Dosing ml/min Est GFR ( Amer) Est GFR (Non-Af Amer) BUN/Creatinine Ratio (10-20) Glucose (70-99) mg/dl Lactate (0.4-2.0) mmol/L Calcium (8.5-10.1) mg/dl Magnesium (1.8-2.4) mg/dl Total Bilirubin (0.2-1) mg/dl AST (15-37) U/L ALT (12-78) U/L Alkaline Phosphatase (45-117) U/L Troponin I (0-0.045) ng/ml C-Reactive Protein (0-0.29) mg/dl Total Protein (6.4-8.2) gm/dl Albumin (3.4-5.0) gm/dl Globulin (2.5-4.0) gm/dl Albumin/Globulin Ratio (0.9-2) TSH (0.300-4.500) uIu/ml Urine Color Urine Appearance (Clear) Urine pH (4.5-7.5) Ur Specific [place] (1.000-1.030) Urine Protein (Negative) Urine Glucose (UA) (Negative) Urine Ketones (Negative) Urine Blood (Negative) Urine Nitrite (Negative) Urine Bilirubin (Negative) Urine Urobilinogen (Negative) Ur Leukocyte Esterase (Negative) Urine WBC (Auto) (0-5) /hpf Urine RBC (Auto) (0-4) /hpf U Hyaline Cast (Auto) (0-5) /lpf U Epithel Cells (Auto) (0-5) /lpf Urine Bacteria (Auto) (Negative) Nasal Screen MRSA (PCR) Negative (Negative) 06/24/18 06/24/18 06/24/18 Range/Units 06:40 16:00 16:00 WBC (4.8-10.8) K/uL RBC (4.2-5.4) M/uL Hgb (12.0-16.0) g/dL Hct (37-47) % MCV (80-100) fL MCH (25-34) pg MCHC (32-36) g/dL RDW Std Deviation (36.4-46.3) fL RDW Coeff of [place] (11.5-14.5) % Plt Count (130-400) K/uL MPV (7.4-10.4) fL Immature Gran % (Auto) % Neut % (Auto) % Lymph % (Auto) % [place] % (Auto) % Eos % (Auto) % Baso % (Auto) % Immature Gran # (Auto) (0.00-0.02) K/uL Neut # (Auto) (1.4-6.5) K/uL Lymph # (Auto) (1.2-3.4) K/uL [place] # (Auto) (0.11-0.59) K/uL Eos # (Auto) (0-0.5) K/uL Baso # (Auto) (0-0.2) K/uL ESR 72 H (0-21) mm/hr PT (9.0-12.0) Seconds INR (0.9-1.1) APTT (21.0-31.0) Seconds PTT Ratio Sodium 138 (136-145) mmol/L Potassium 4.2 (3.5-5.1) mmol/L Chloride 109 H (98-107) mmol/L Carbon Dioxide 24 (21-32) mmol/L Anion Gap 5.0 (3-11) BUN 27 H (7-18) mg/dl Creatinine 0.90 D (0.6-1.2) mg/dl Est Cr Clr Drug Dosing 70.1 ml/min Est GFR ( Amer) 71.0 Est GFR (Non-Af Amer) 61.2 BUN/Creatinine Ratio 30.4 H (10-20) Glucose 98 (70-99) mg/dl Lactate (0.4-2.0) mmol/L Calcium 8.0 L (8.5-10.1) mg/dl Magnesium (1.8-2.4) mg/dl Total Bilirubin 0.9 D (0.2-1) mg/dl AST 31 (15-37) U/L ALT 23 (12-78) U/L Alkaline Phosphatase 57 (45-117) U/L Troponin I (0-0.045) ng/ml C-Reactive Protein 11.60 H (0-0.29) mg/dl Total Protein 7.2 (6.4-8.2) gm/dl Albumin 2.8 L (3.4-5.0) gm/dl Globulin 4.4 H (2.5-4.0) gm/dl Albumin/Globulin Ratio 0.6 L (0.9-2) TSH (0.300-4.500) uIu/ml Urine Color Urine Appearance (Clear) Urine pH (4.5-7.5) Ur Specific [place] (1.000-1.030) Urine Protein (Negative) Urine Glucose (UA) (Negative) Urine Ketones (Negative) Urine Blood (Negative) Urine Nitrite (Negative) Urine Bilirubin (Negative) Urine Urobilinogen (Negative) Ur Leukocyte Esterase (Negative) Urine WBC (Auto) (0-5) /hpf Urine RBC (Auto) (0-4) /hpf U Hyaline Cast (Auto) (0-5) /lpf U Epithel Cells (Auto) (0-5) /lpf Urine Bacteria (Auto) (Negative) Nasal Screen MRSA (PCR) (Negative) Imaging Data Radiologist's Impression: Radiology results as stated below per my review and the radiologist's interpretation: XR chest 1V portable CLINICAL HISTORY: Chest pain. Bilateral lower extremity swelling. COMPARISON STUDY: Chest radiograph October 13, 2016. FINDINGS: Left subclavian pacemaker is in place. Moderate cardiomegaly is unchanged. There is moderate cardiomegaly. Apparent hazy left basilar opacity is unchanged. There is no evidence for pulmonary edema. IMPRESSION: 1. Stable cardiomegaly without evidence for pulmonary edema. 2. Apparent hazy left basilar opacity which likely reflects artifact, epicardial fat pad or atelectasis. Electronically signed by: oRn Samaniego M.D. 06/23/2018 9:[address] SCAN OF THE BRAIN WITHOUT IV CONTRAST CLINICAL HISTORY: Change in mental status. COMPARISON STUDY: CT of the brain dated 06/23/2007 TECHNIQUE: Unenhanced axial CT scan of the brain is performed from the vertex to the skull base. A dose lowering technique was utilized adhering to the principles of ALARA. CT DOSE: 537.48 mGy.cm FINDINGS: Brain parenchyma: There are age-related involutional changes noting mild subcortical and periventricular microangiopathic change. There is no hemorrhage , mass effect, or evidence of acute territorial ischemia by CT criteria. A small chronic lacunar infarct is identified in the left internal capsule. Ruiz- white matter differentiation is preserved. No extra-axial fluid collection is seen. Ventricles, sulci, cisterns: Prominent secondary to involutional change. Intracranial vasculature: There is atherosclerotic calcification of the cavernous carotid and vertebral arteries. Calvarium: Unremarkable. Sinuses and mastoids: The visualized paranasal sinuses are clear. There is a small right mastoid effusion. The left mastoid air cells are well pneumatized. Orbits: The bony orbits are grossly intact. IMPRESSION: There is no hemorrhage, mass effect, or evidence of acute territorial ischemia by CT criteria. Electronically signed by: Adelso Morales M.D. 06/23/2018 10:27 AM ECG Data Attestation: I personally reviewed and interpreted this ECG as follows: Indication: tachycardia Rate (beats per minute): 143 Rhythm: atrial fibrillation (with RVR) Findings: + other (previous inferior infarct, repolarization abnormality, QTC 558), + RBBB and + left axis deviation Blood Pressure Blood Pressure Findings: Low blood pressure Blood Pressure Disposition: further management by hospitalist MDM Narrative This patient was evaluated and appeared to be in no distress. IV access was obtained and laboratory work was drawn. 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 Chest x-ray was obtained and reveals congestive changes. Patient did require some IV hydration to maintain a blood pressure while attempting to rate control. Patient did receive metoprolol 5 mg IV x3 doses. She continued in a rapid atrial fibrillation. Patient did require 15 mg of IV Cardizem. Patient's large area of yeast dermatitis in the inguinal/pannicular region was cleansed and nystatin powder was applied. I did speak with the hospitalist service for further management of this patient. They are aware of the plan and agree. Impression & Plan Atrial fibrillation with RVR Critical Care Time I have personally spent greater than 35 minutes of critical care time in the direct management of this patient. This includes bedside care, interpretation of diagnostic studies, and testing, discussion with consultants, patient, and family members, and other required patient management activities. This 35 minutes is in excess of all separately billable procedures. Critical Care Time: Yes Total Critical Care Time: 35 Discharge Plan Visit Data *Final* Discharge Date/Time: 06/23/18 15:14 Chief Complaint: Cardiac Assessment ED Provider: Jenn Michael Discharge Problem: Atrial fibrillation with RVR Patient Disposition: Admitted As Inpatient Discharge Instructions Interventions: ED Discharge Assessment Last Done: 06/23/18 15:14 The scribe's documentation has been prepared under my direction and personally reviewed by me in its entirety. I confirm that the note above accurately reflects all work, treatment, procedures, and medical decision making performed by me.
[2018-06-23] MEDS ORDERED: DIGOXIN 0.125 MG TAB PO SCH (16:00)
[2018-06-23] MEDS ORDERED: WARFARIN SOD 2.5 MG TAB PO SCH (16:00)
[2018-06-23] MEDS ORDERED: SODIUM CHLORIDE 0.9% 1000ML 1,000 ML IV SCH (16:00)
--- NOTE | 2018-06-23 16:11 | XRay Report ---
XR KUB CLINICAL HISTORY: abdominal pain pain COMPARISON STUDY: No previous studies for comparison. FINDINGS: The soft tissues, psoas shadows, renal outlines and intestinal gas pattern appear normal. T here is no evidence for bowel obstruction. No abnormal abdominal calcifications are seen. IMPRESSION: Normal study. The above report was generated using voice recognition software. It may contain grammatical, syntax or spelling errors. Electronically signed by: Pablo Traore M.D. 06/23/2018 4:10 PM
[2018-06-23] MEDS ORDERED: METOPROLOL SUCC 50MG EXT REL TAB PO STA (16:50)
[2018-06-23] MEDS ORDERED: METOPROLOL SUCC 50MG EXT REL TAB PO SCH (21:00)
[2018-06-23] MEDS: NORTRIPTYLINE HCL 25 MG CAP PO SCH (21:10)
[2018-06-23] MEDS: ATORVASTATIN 20 MG TAB PO SCH (21:10)
[2018-06-23] MEDS: NYSTATIN/TRIAMCIN CR 15 GM TUBE EXT SCH (21:11)
[2018-06-24] MEDS: LEVOTHYROXINE SODIUM 125 MCG TABLET PO SCH (05:57)
[2018-06-24 06:50] LABS: Basophils # (auto) 0.02 K/uL (0-0.2); Basophils % (auto) 0.2 %; Eosinophils # (auto) 0.13 K/uL (0-0.5); Eosinophils % (auto) 1.4 %; Hematocrit (blood only) 39.9 % (37-47); Hemoglobin 12.5 g/dL (12.0-16.0); Immature Granulocytes # (auto) 0.03 K/uL (0.00-0.02); Immature Granulocytes % (auto) 0.3 %; Lymphocytes # (auto) 1.43 K/uL (1.2-3.4); Lymphocytes % (auto) 15.6 %; Mean Corpuscular Hgb Conc 31.3 g/dL (32-36); Mean Corpuscular Volume 94.1 fL (80-100); Mean Platelet Volume 9.4 fL (7.4-10.4); Monocytes % (auto) 10.9 %; Neutrophils # (auto) 6.54 K/uL (1.4-6.5); Neutrophils % (auto) 71.6 %; Platelet Count 259 K/uL (130-400); RDW Coefficient of Variation 15.4 % (11.5-14.5); RDW Standard Deviation 52.3 fL (36.4-46.3); Red Blood Count 4.24 M/uL (4.2-5.4); White Blood Count 9.15 K/uL (4.8-10.8)
[2018-06-24 07:17] LABS: INR 3.3 (0.9-1.1); Prothrombin Time 30.8 Seconds (9.0-12.0)
[2018-06-24 07:29] LABS: Albumin Level 2.8 gm/dl (3.4-5.0); BUN Creatinine Ratio 30.4 (10-20); Creatinine Clr Calc Pharmacy 70.1 ml/min; Est GFR (Non-African American) 61.2; Potassium 4.2 mmol/L (3.5-5.1)
[2018-06-24 07:31] LABS: Albumin Globulin Ratio 0.6 (0.9-2); Bilirubin,Total 0.9 mg/dl (0.2-1); Globulin 4.4 gm/dl (2.5-4.0); Total Protein 7.2 gm/dl (6.4-8.2)
[2018-06-24] MEDS: NYSTATIN/TRIAMCIN CR 15 GM TUBE EXT SCH ×2 (07:58→20:44)
[2018-06-24] MEDS: PARoxetine HCl 20 MG TAB PO SCH (07:58)
[2018-06-24] MEDS ORDERED: cefTRIAXone SODIUM 1,000 MG in DEXTROSE 5% 50 ML IV SCH (14:00)
[2018-06-24] MEDS ORDERED: PIPERACILL/TAZOBAC CONSULT ACTIVE PRN (14:40)
[2018-06-24] MEDS ORDERED: KETOROLAC TROMETHAMINE 15 MG/ML VIAL IV ONE (14:45)
[2018-06-24] MEDS ORDERED: PIPERACILLIN/TAZOBACTAM 3.375 GM in DEXTROSE 5% 100 ML IV SCH (14:45)
[2018-06-24] MEDS ORDERED: FUROSEMIDE 40 MG in SYRINGE 0 ML IV ONE (14:55)
[2018-06-24] MEDS ORDERED: CEFEPIME CONSULT ACTIVE PRN (14:57)
[2018-06-24] MEDS ORDERED: VANCOMYCIN CONSULT ACTIVE PRN (14:58)
[2018-06-24] MEDS ORDERED: VANCOMYCIN HCL 2,750 MG in SODIUM CHLORIDE 0.9% 500 ML IV STA (15:01)
--- NOTE | 2018-06-24 15:10 | Pharmacy Report ---
Pharmacy Abx Dose Short Note - Date of Service June 24, 2018 - Assessment & Plan Assessment * 78 year old F admitted with Afib/RVR and possible lower extremity cellulitis. Was started on ceftriaxone on 06/23. Broadened to cefepime/vancomycin on 06/24 2nd concern for lack of improvement * SCr trended down today. eCrCL 70 mL/min Vancomycin * Will load with 21 mg/kg then ongoing with 13 mg/kg IV dosed close to estimated t1/2 based on eCrCL * Trough prior to overall level Plan * Vancomycin 2750 mg IV x1 then 1750 mg IV q12h * Trough 06/26 @ 0330 Pharmacy will continue to follow and will adjust dose/frequency as necessary. Thank you.
[2018-06-24] MEDS ORDERED: KETOROLAC TROMETHAMINE 15 MG/ML VIAL ONE (15:17)
[2018-06-24] MEDS: DIGOXIN 0.125 MG TAB PO SCH (15:42)
[2018-06-24] MEDS: METOPROLOL SUCC 50MG EXT REL TAB PO SCH ×2 (15:45→23:18)
[2018-06-24] MEDS: CEFEPIME 2,000 MG in SYRINGE 7.5 ML IV SCH (16:51)
[2018-06-24] MEDS ORDERED: SODIUM CHLORIDE 0.9% 250 ML IV ONE (19:01)
--- NOTE | 2018-06-24 19:08 | Consultation Report ---
DATE OF CONSULTATION: 06/24/2018 REFERRING PHYSICIAN: Dr. Kimo England. INDICATIONS: Atrial fibrillation, elevated ventricular response rate, atypia. HISTORY OF PRESENT ILLNESS: The patient is a complex 78-year-old female whose past medical history is notable for: 1. Chronic atrial fibrillation. 2. Past bradycardia with single-chamber pacemaker insertion. 3. Obesity. 4. Hypertension. 5. Chronic renal insufficiency. 6. Mild left ventricular dysfunction by past echocardiogram with moderate mitral and tricuspid insufficiency and elevated pulmonary pressures on past echocardiogram 2 years prior. She has manifested symptoms in the past have a chronic right heart failure, most recently compensated. Outpatient exams demonstrate fair control of atrial arrhythmias but were not recently symptomatic. She presents now this admission, noting having been feeling poorly for 1-2 days or greater prior to hospitalization. notes she had missed some of her pills. The patient noting specifically having missed her metoprolol in the evening of admission. That evening in bed was feeling even more poorly and became lethargic per her . She was brought to the Emergency Room where she was found to be in atrial fibrillation with elevated ventricular response rate. Bilateral lower extremities with stasis cellulitis was noted as well as moderate worsening renal insufficiency. She was treated with IV fluids, IV diltiazem transiently. The patient specifically noted at the time of presentation having missed 2 doses of metoprolol. She received a single dose on day of admission, but did not receive any today. She has been persistently tachycardic throughout the day. She is referred now for further evaluation. At time of examination, she denies any acute complaints. Notes episodes of feeling flushed and sweaty, but notes no acute fevers or chills. Notes no melena, hematochezia, dysuria, or hematuria. Overall, the patient is of relatively poor historian. She is accompanied by her who confirms some of her history. She is usually active to a low level degree about her home performing cooking, cleaning, etc. per patient. She has been usually compliant with medications. Last pacemaker interrogation found it to be functioning appropriately, though with occasional elevated ventricular response rates 16% pacing. REVIEW OF SYSTEMS: As per HPI and otherwise negative or unobtainable. ALLERGIES: None. MEDICATIONS: Prior to hospitalization per records were furosemide 80 mg morning and 40 mg p.m., warfarin variable dosing, usually 5 mg per day, Paxil 40 mg p.o. q. day, metoprolol succinate 200 mg b.i.d., spironolactone 25 mg q.a.m., levothyroxine 125 mcg q. day, lisinopril 20 mg p.o. q. day, atorvastatin 20 mg p.o. day, Flexeril 10 mg p.r.n. muscle spasm, oxygen 2-3 L nasal cannula nocturnally. PAST SURGICAL HISTORY: Notable for carpal tunnel surgery, left total knee replacement in 2002, pacemaker insertion with pacemaker generator exchange. FAMILY HISTORY: Notable for heart disease in father in his 80s. SOCIAL HISTORY: The patient is a nonsmoker, nondrinker. She lives at home with her , does perform ADLs and activities about her home. PHYSICAL EXAMINATION: GENERAL: The patient is an obese, age-appropriate female. VITAL SIGNS: Heart rate is 100, blood pressure is 110/79. HEENT: Normocephalic and atraumatic. Nares without discharge. Throat was clear. NECK: Thick. There is no distinct jugular venous distention. LUNGS: Revealed mildly diminished breath sounds but no rhonchi, rale, or wheeze. CARDIOVASCULAR: Irregularly, irregular with a less than grade 1/6 systolic murmurs, no diastolic murmur. PMI is nondisplaced. Chest reveals pacemaker site without inflammation or tenderness. ABDOMEN: Obese, soft, no distinct fluid wave. No distinct hepatosplenomegaly. EXTREMITIES: Reveal bilateral lower extremity edema with erythema and ruborous changes of both lower extremities, right greater than left with small area of open excoriations in the right garcia. SKIN: Reveals marked excoriation in groin areas. LABORATORY DATA: On presentation, white cell count was 12.7, hemoglobin 13.5, hematocrit 41.0, sodium is 138, potassium is 4.2, chloride is 109, bicarbonate 24, BUN is 27, creatinine 0.9, albumin level is 2.8 on presentation, TSH was 2.8. EKG this morning demonstrates atrial fibrillation with rapid ventricular response, right bundle branch block, left intrafascicular block pattern. No significant changes from past. Echocardiogram this afternoon demonstrates little change from prior, diminished degree of mitral insufficiency and tricuspid insufficiency. The left ventricle was normal in size. EF is 40%-45% with mild left ventricular hypertrophy. There is severe biatrial enlargement, [id number] tricuspid insufficiency. Chest x-ray on presentation revealed cardiomegaly with hazy basilar opacity on the left. No overt pulmonary edema. IMPRESSION: A 78-year-old female with history of chronic atrial fibrillation with past tachybrady syndrome and pacemaker in place with difficult to control heart rates, presents now with signs and symptoms of probable acute decline from ultimate source, possible infectious versus multifactorial. The patient did miss several doses of beta ken at home as well as during hospitalization with patient on high dose Toprol-XL. PLAN: Will resume Toprol-XL at a slightly lower dose given marginal blood pressures. We would treat underlying infectious process, may consider adding digoxin to this patient's regimen depending on clinical course. The patient may ultimately be considered for AV junction ablation in the future if [id number] rates remain present. Current heart rates are being driven by underlying medical issues. We will follow closely in the hospital. Single dose of furosemide given today. Oxygen supplementation will be maintained given past history of nocturnal hypoxia. Discussed this in detail with the patient and .
--- NOTE | 2018-06-24 19:19 | Hospitalist Progress Note ---
Date of Service June 24, 2018 Assessment & Plan (1) Sepsis: This is a 78 year old female with a significant PMH of Systolic CHF, Chronic atrial fib on warfarin, HTN, hx of tachy dayady syn s/p PPM, Gerd, Anxiety who presents to [facility] due to ill feeling x 1 week. In ED patient was noted to be in atrial fib with RVR. Was given IV metoprolol 5 mg as well as IV Cardizem 15 mg. Patient did have episodic hypotension post Cardizem as well as continued tachycardia. She was given 1 L of fluid. She was afebrile on initial presentation however her WBC 12.7, elevated BUN and creatinine to 46 and 1.41. Mag and TSH are WNL. Initial EKG revealed heart rate 143 prolonged QTC of 558ms. Upon examination patient appears to have bilateral lower extremity venous stasis cellulitis along with KARISHMA which is most likely causing her RVR. Upon admission pt meets for possible SIRS/sepsis criteria for WBC 12.7, heart rate greater than 100, SBP less than 100 Criteria may also be due to KARISHMA -awaiting admission culture results -have upgraded ceftriaxone to Cefepime and Vancomycin and repeated blood cultures (2) Bilateral lower leg cellulitis: -antibiotics as above -ultrasound of bilateral lower extremities ordered (3) KARISHMA (acute kidney injury): has resolved with IV fluids (4) Chronic atrial fibrillation: resume Toprol-XL at a slightly lower than home dose given marginal blood pressures as 100 mg BID holding off further digoxin for now INR is 3.3 and will hold coumadin tonight (5) Systolic CHF: -EF 40-45%, currently euvolemic -moderate mitral valve Regurgitation -mild tricuspid Regurgitation -resume Toprol-XL at a slightly lower than home dose given marginal blood pressures as 100 mg BID -hold lasix, aldactone, lisinopril because of low blood pressures -daily weights, strict I and O, HH/Low Na diet (6) Yeast dermatitis: -nystatin/triamcinolone cream bid (7) 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 Nath upon discharge Subjective Patient denies feeling palpitations despite being in atrial fibrillation with rapid ventricular response in low 100s deies chest pain. denies abdominal pain. denies vomiting Physical Exam 2 Vital Signs (Past 24 Hours): Last Vital Signs Temp 36.4 C L 06/24/18 18:42 Pulse 100 H 06/24/18 18:42 Resp 18 06/24/18 18:42 BP 89/62 L 06/24/18 18:42 Pulse Ox 95 06/24/18 18:42 Physical Exam: Gen: Morbidly obese Head: Normocephalic, Atraumatic Eyes: Sclera normal, no conjunctival injection, PERRLA, EOMI ENT: Gross hearing intact, normal pharynx, mucous membranes dry Neck: supple, no adenopathy, No JVD, no bruit, Resp: Clear to auscultation b/l, no wheeze, rales, rhonchi. Normal insp/exp effort, no accessory muscle use CV: irregular rate, irregular rhythm, no murmur, rub, gallop, or ectopy Abd: +obesity, +BS x 4, soft, nontender, nondistended Musculoskeletal/Extremities: B/L venous stasis changes with b/l pretibial skin excoriations, redness, warmth from ankle to mid calf. Skin: warm, moist, no rash, mild turgor, cap refill < 2sec Neuro: Alert and oriented x 3 _ (1) Systolic CHF Heart failure chronicity: chronic Qualified Code(s): I50.22 - Chronic systolic (congestive) heart failure (2) Hypothyroidism Hypothyroidism type: unspecified Qualified Code(s): E03.9 - Hypothyroidism, unspecified (3) Sepsis Sepsis type: sepsis due to unspecified organism Qualified Code(s): A41.9 - Sepsis, unspecified organism (4) HTN (hypertension) Hypertension type: essential hypertension Qualified Code(s): I10 - Essential (primary) hypertension
[2018-06-24] MEDS: NORTRIPTYLINE HCL 25 MG CAP PO SCH (20:44)
[2018-06-24] MEDS: ATORVASTATIN 20 MG TAB PO SCH (20:44)
--- NOTE | 2018-06-24 21:56 | Ultrasound Report ---
ULTRASOUND BILATERAL LOWER EXTREMITY VENOUS CLINICAL HISTORY: Lower extremity edema. COMPARISON STUDY: No priors. TECHNIQUE: Real-time, grayscale, and color Doppler sonography of the deep veins of the right and left lower extremity was performed from the inguinal crease to the calf. Compression and augmentation wer e utilized. Examination is degraded by large body habitus. FINDINGS: There is no sonographic evidence of deep venous thrombosis identified in the right or left lower extremity. The common femoral, superficial femoral, and popliteal veins are patent and normally compressible bilaterally. The greater saphenous vein and the profunda femoris vein at the junction w ith the common femoral vein are clear in both legs. The visualized calf veins are patent bilaterally. A popliteal cyst on the right measures 5.1 x 3.3 x 4.5 cm. Soft tissue edema is noted in both legs. IMPRESSION: 1. There is no sonographic evidence of deep venous thrombosis identified in the right or left lower e xtremity. 2. A popliteal cyst is noted on the right. Electronically signed by: Adelso Morales M.D. 06/24/2018 9:54 PM
[2018-06-25] MEDS: CEFEPIME 2,000 MG in SYRINGE 7.5 ML IV SCH ×2 (03:58→15:32)
[2018-06-25] MEDS: VANCOMYCIN HCL 1,750 MG in SODIUM CHLORIDE 0.9% 500 ML IV SCH ×2 (04:00→15:33)
[2018-06-25] MEDS: LEVOTHYROXINE SODIUM 125 MCG TABLET PO SCH (04:01)
[2018-06-25 05:56] LABS: Basophils # (auto) 0.02 K/uL (0-0.2); Basophils % (auto) 0.2 %; Eosinophils # (auto) 0.15 K/uL (0-0.5); Eosinophils % (auto) 1.8 %; Hematocrit (blood only) 38.2 % (37-47); Immature Granulocytes # (auto) 0.04 K/uL (0.00-0.02); Immature Granulocytes % (auto) 0.5 %; Lymphocytes # (auto) 1.49 K/uL (1.2-3.4); Lymphocytes % (auto) 17.9 %; Mean Corpuscular Hgb Conc 31.4 g/dL (32-36); Mean Corpuscular Volume 94.8 fL (80-100); Mean Platelet Volume 9.1 fL (7.4-10.4); Monocytes # (auto) 1.11 K/uL (0.11-0.59); Monocytes % (auto) 13.3 %; Neutrophils # (auto) 5.53 K/uL (1.4-6.5); Neutrophils % (auto) 66.3 %; Platelet Count 248 K/uL (130-400); RDW Coefficient of Variation 15.1 % (11.5-14.5); RDW Standard Deviation 52.5 fL (36.4-46.3); Red Blood Count 4.03 M/uL (4.2-5.4); White Blood Count 8.34 K/uL (4.8-10.8)
[2018-06-25 06:30] LABS: BUN Creatinine Ratio 30.6 (10-20); Creatinine Clr Calc Pharmacy 58.6 ml/min; Est GFR (African American) 55.7; Est GFR (Non-African American) 48.1
[2018-06-25] MEDS: PARoxetine HCl 20 MG TAB PO SCH (08:33)
[2018-06-25] MEDS: METOPROLOL SUCC 50MG EXT REL TAB PO SCH ×3 (08:33→20:34)
[2018-06-25] MEDS: NYSTATIN/TRIAMCIN CR 15 GM TUBE EXT SCH ×2 (08:34→20:34)
--- NOTE | 2018-06-25 11:24 | Cardiology Progress Note ---
Date of Service June 25, 2018 Assessment & Plan (1) Atrial fibrillation with RVR: Patient with chronically elevated atrial fibrillation rates with increased exacerbation with missed beta-ken dosing and rates being driven by underlying medical issues Will titrate Toprol slightly higher 100 mg 3 times daily (still below outpatient dose) Continue digoxin (2) Pacemaker: (3) Mild obstructive sleep apnea: (4) History of tachycardia-bradycardia syndrome: (5) Sepsis: (6) Bilateral lower leg cellulitis: Subjective Patient seen and examined chart medications telemetry reviewed. Looks slightly brighter today. Notes legs are less erythematous. Denies any chest pains tachypalpitations syncope or near syncope. Atrial fibrillation rates remain mildly elevated Physical Exam 2 Vital Signs (Past 24 Hours): Last Vital Signs Temp 36.8 C 06/25/18 04:00 Pulse 103 H 06/25/18 04:00 Resp 29 H 06/25/18 04:00 BP 105/77 06/25/18 04:00 Pulse Ox 95 06/25/18 04:00 Physical Exam: Vital signs as above Constitutional: + obese Eyes: PERRL, conjunctivae normal, anicteric sclerae ENMT: external ear and nose normal, oropharynx normal Neck: + thick neck Respiratory: Auscultation: + wheezes (Bibasilar right greater than left) Cardiovascular: Irregular regular with grade 1/6 systolic murmur no diastolic murmur Chest (Breasts): Chest: + pacemaker (No erythema or tenderness over pacer site ) Gastrointestinal (Abdomen): Obese soft nontender Neurologic: PERRL, EOMI, accommodation nl, no face palsy, no dysarthria Results & Data Laboratory Results Laboratory Results - last 24 hr 06/24/18 06/24/18 06/24/18 16:00 16:00 20:10 WBC RBC Hgb Hct MCV MCH MCHC RDW Std Deviation RDW Coeff of Elizabeth Plt Count MPV Immature Gran % (Auto) Neut % (Auto) Lymph % (Auto) Williamson % (Auto) Eos % (Auto) Baso % (Auto) Immature Gran # (Auto) Neut # (Auto) Lymph # (Auto) Williamson # (Auto) Eos # (Auto) Baso # (Auto) ESR 72 H Sodium Potassium Chloride Carbon Dioxide Anion Gap BUN Creatinine Est Cr Clr Drug Dosing Est GFR ( Amer) Est GFR (Non-Af Amer) BUN/Creatinine Ratio Glucose POC Glucose 96 Calcium C-Reactive Protein 11.60 H 06/25/18 06/25/18 05:40 05:40 WBC 8.34 RBC 4.03 L Hgb 12.0 Hct 38.2 MCV 94.8 MCH 29.8 MCHC 31.4 L RDW Std Deviation 52.5 H RDW Coeff of Elizabeth 15.1 H Plt Count 248 MPV 9.1 Immature Gran % (Auto) 0.5 Neut % (Auto) 66.3 Lymph % (Auto) 17.9 Williamson % (Auto) 13.3 Eos % (Auto) 1.8 Baso % (Auto) 0.2 Immature Gran # (Auto) 0.04 H Neut # (Auto) 5.53 Lymph # (Auto) 1.49 Williamson # (Auto) 1.11 H Eos # (Auto) 0.15 Baso # (Auto) 0.02 ESR Sodium 137 Potassium 4.0 Chloride 104 Carbon Dioxide 26 Anion Gap 7.0 BUN 34 H Creatinine 1.10 Est Cr Clr Drug Dosing 58.6 Est GFR ( Amer) 55.7 Est GFR (Non-Af Amer) 48.1 BUN/Creatinine Ratio 30.6 H Glucose 106 H POC Glucose Calcium 8.0 L C-Reactive Protein ECG Additional Comments: 25-JUN-2018 06:50:33 [facility] Atrial fibrillation with occasional ventricular-paced complexes Left axis deviation Right bundle branch block Abnormal ECG _ (1) Sepsis Sepsis type: sepsis due to unspecified organism Qualified Code(s): A41.9 - Sepsis, unspecified organism
[2018-06-25] MEDS: DIGOXIN 0.125 MG TAB PO SCH (15:30)
[2018-06-25] MEDS: METOPROLOL TARTRATE 1 MG/ML VIAL IV PRN ×2 (17:06→23:48)
--- NOTE | 2018-06-25 18:47 | Hospitalist Progress Note ---
Date of Service June 25, 2018 Assessment & Plan (1) Sepsis: This is a 78 year old female with a significant PMH of Systolic CHF, Chronic atrial fib on warfarin, HTN, hx of tachy dayday syn s/p PPM, Gerd, Anxiety who presents to [facility] due to ill feeling x 1 week. In ED patient was noted to be in atrial fib with RVR. Was given IV metoprolol 5 mg as well as IV Cardizem 15 mg. Patient did have episodic hypotension post Cardizem as well as continued tachycardia. She was given 1 L of fluid. She was afebrile on initial presentation however her WBC 12.7, elevated BUN and creatinine to 46 and 1.41. Mag and TSH are WNL. Initial EKG revealed heart rate 143 prolonged QTC of 558ms. Upon examination patient appears to have bilateral lower extremity venous stasis cellulitis along with KARISHMA which is most likely causing her RVR. Upon admission pt meets for possible SIRS/sepsis criteria for WBC 12.7, heart rate greater than 100, SBP less than 100 Criteria may also be due to KARISHMA -was from admission started on ceftriaxone and then -have upgraded from ceftriaxone to Cefepime and Vancomycin on 06/25/18 -the admission blood cultures with no growth to date -the 06/25/18 blood cultures which were drawn before cefepime and Vancomycin are still pending -continue cefepime and vancomycin for now, awaiting 06/25/18 blood culture results (2) Bilateral lower leg cellulitis: -antibiotics as above -ultrasound of bilateral lower extremities 06/25/2018: 1. There is no sonographic evidence of deep venous thrombosis identified in the right or left lower extremity. 2. A popliteal cyst is noted on the right. (3) KARISHMA (acute kidney injury): has resolved with IV fluids monitor renal function while on vancomycin (4) Chronic atrial fibrillation: resume Toprol-XL at a slightly lower than home dose given marginal blood pressures as 100 mg BID holding off further digoxin for now INR is 3.3 on 06/24/18 and coumadin held will resume coumadin as 4 mg daily which is less than usual home 5 mg daily dose atrial fibrillation with rapid ventricular response may be exacerbated by underlying infection (5) Systolic CHF: -EF 40-45%, currently euvolemic -moderate mitral valve Regurgitation -mild tricuspid Regurgitation -titrating Toprol-XL from 100 mg BID to TID -can resume lasix 40 mg daily hold aldactone, lisinopril because blood pressure controlled but not very high -daily weights, strict I and O, HH/Low Na diet (6) Yeast dermatitis: -nystatin/triamcinolone cream bid (7) 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 Nath upon discharge Subjective continues with atrial fibrillation and RVR denies chest pain. denies abdominal pain. denies vomiting. the leg feels less erythematous on the left side but some erythema of right leg Physical Exam 2 Vital Signs (Past 24 Hours): Last Vital Signs Temp 36.7 C 06/25/18 15:34 Pulse 103 H 06/25/18 15:34 Resp 20 06/25/18 15:34 BP 112/78 06/25/18 15:34 Pulse Ox 97 06/25/18 15:34 Physical Exam: Gen: Morbidly obese Head: Normocephalic, Atraumatic Eyes: Sclera normal, no conjunctival injection, PERRLA, EOMI ENT: Gross hearing intact, normal pharynx, mucous membranes dry Neck: supple, no adenopathy, No JVD, no bruit, Resp: Clear to auscultation b/l, no wheeze, rales, rhonchi. Normal insp/exp effort, no accessory muscle use CV: irregular rate, irregular rhythm, no murmur, rub, gallop, or ectopy Abd: +obesity, +BS x 4, soft, nontender, nondistended Musculoskeletal/Extremities: the leg feels less erythematous on the left side but some erythema of right leg Skin: warm, moist, no rash, mild turgor, cap refill < 2sec Neuro: Alert and oriented x 3 _ (1) Sepsis Sepsis type: sepsis due to unspecified organism Qualified Code(s): A41.9 - Sepsis, unspecified organism (2) Systolic CHF Heart failure chronicity: chronic Qualified Code(s): I50.22 - Chronic systolic (congestive) heart failure (3) HTN (hypertension) Hypertension type: essential hypertension Qualified Code(s): I10 - Essential (primary) hypertension (4) Hypothyroidism Hypothyroidism type: unspecified Qualified Code(s): E03.9 - Hypothyroidism, unspecified
[2018-06-25] MEDS ORDERED: WARFARIN SOD 4 MG TAB PO ONE (18:57)
[2018-06-25] MEDS: NORTRIPTYLINE HCL 25 MG CAP PO SCH (19:35)
[2018-06-25] MEDS: ATORVASTATIN 20 MG TAB PO SCH (19:35)
[2018-06-26] MEDS ORDERED: VANCOMYCIN TROUGH ONE (03:30)
[2018-06-26 04:00] LABS: Basophils # (auto) 0.02 K/uL (0-0.2); Basophils % (auto) 0.2 %; Eosinophils # (auto) 0.19 K/uL (0-0.5); Eosinophils % (auto) 2.2 %; Hematocrit (blood only) 39.5 % (37-47); Hemoglobin 12.6 g/dL (12.0-16.0); Immature Granulocytes # (auto) 0.03 K/uL (0.00-0.02); Immature Granulocytes % (auto) 0.3 %; Lymphocytes # (auto) 1.57 K/uL (1.2-3.4); Lymphocytes % (auto) 17.9 %; Mean Corpuscular Hgb Conc 31.9 g/dL (32-36); Mean Corpuscular Volume 95.6 fL (80-100); Mean Platelet Volume 9.4 fL (7.4-10.4); Monocytes # (auto) 1.32 K/uL (0.11-0.59); Monocytes % (auto) 15.1 %; Neutrophils # (auto) 5.62 K/uL (1.4-6.5); Neutrophils % (auto) 64.3 %; Platelet Count 266 K/uL (130-400); RDW Coefficient of Variation 15.1 % (11.5-14.5); RDW Standard Deviation 51.7 fL (36.4-46.3); Red Blood Count 4.13 M/uL (4.2-5.4); White Blood Count 8.75 K/uL (4.8-10.8)
[2018-06-26] MEDS: CEFEPIME 2,000 MG in SYRINGE 7.5 ML IV SCH (04:01)
[2018-06-26 04:18] LABS: Creatinine Clr Calc Pharmacy 70.8 ml/min; Est GFR (Non-African American) 60.4; INR 1.7 (0.9-1.1); Prothrombin Time 16.8 Seconds (9.0-12.0)
[2018-06-26] MEDS: VANCOMYCIN HCL 1,750 MG in SODIUM CHLORIDE 0.9% 500 ML IV SCH (04:20)
[2018-06-26] MEDS: LEVOTHYROXINE SODIUM 125 MCG TABLET PO SCH (04:27)
[2018-06-26] MEDS: PARoxetine HCl 20 MG TAB PO SCH (07:51)
[2018-06-26] MEDS: METOPROLOL SUCC 50MG EXT REL TAB PO SCH ×2 (07:51→20:34)
[2018-06-26] MEDS: FUROSEMIDE 40 MG TAB PO SCH (07:52)
[2018-06-26] MEDS: NYSTATIN/TRIAMCIN CR 15 GM TUBE EXT SCH ×2 (07:52→20:34)
--- NOTE | 2018-06-26 07:52 | Pharmacy Report ---
Pharmacy Abx Dose Short Note - Date of Service June 26, 2018 - Assessment & Plan Assessment * 78 year old F receiving VANCOMYCIN + CEFEPIME for treatment of bilateral lower ext cellulitis * Day # 3 of VANCOMYCIN + CEFEPIME antimicrobial therapy. Had received CEFTRIAXONE for ~24 hrs before converting to CEFEPIME + VANCOMYCIN due to lack of response. * no growth reported on BLCX's to date * afebrile, no leukocytosis noted on labs. HR has been elevated, in a fib, MAPs above 70 * renal fxn stable based upon SCr and U.O. Plan Vancomycin * Trough level of 20.9 mcg/mL is supratherapeutic. This level was drawn prior to the 3rd maint dose. Prior doses were hung on time and level was drawn at the appropriate time. This level is likely to climb with repeat dosing as we have not yet achieved steady-state * Cohange to 1750 mg (~13mg/kg) IV every 18 hours * Goal trough level for skin/skin structure infx : 10 to 20 mcg/mL * Trough level will be checked with 3rd dose of new regimen if therapy to continue Cefepime * no change required; eCrCr > 60, BMI 48, continue 2gm IV Q 12 hrs Pharmacy will continue to follow and will adjust dose/frequency as necessary. Thank you.
--- NOTE | 2018-06-26 10:40 | Cardiology Progress Note ---
Date of Service June 26, 2018 Assessment & Plan (1) Atrial fibrillation with RVR: Patient with chronically elevated atrial fibrillation rates with increased exacerbation with missed beta-ken dosing and rates being driven by underlying medical issues will increase to usual outpatient dose of metoprolol succinate 200mg bid INR of 1.7 today, will increase coumadin to usual outpatient dose of 5mg daily Continue digoxin (2) Pacemaker: (3) Mild obstructive sleep apnea: (4) History of tachycardia-bradycardia syndrome: (5) Sepsis: (6) Bilateral lower leg cellulitis: Subjective Pt seen and examined, oob in wheelchair. States that she's not feeling very energetic today. Otherwise, denies chest pain, sob, palpitations, lightheadedness or dizziness. Tele reviewed: afib in 100's Review of Systems All systems reviewed & are unremarkable except as noted in HPI & below Physical Exam 2 Vital Signs (Past 24 Hours): Last Vital Signs Temp 36.8 C 06/26/18 08:12 Pulse 83 06/26/18 08:12 Resp 20 06/26/18 08:12 BP 109/75 06/26/18 08:12 Pulse Ox 99 06/26/18 08:12 Physical Exam: General: Awake, alert and oriented x 3. No acute distress. HEENT: Normocephalic, atraumatic. Pupils equal, round and reactive to light and accommodation. Extraocular muscles are intact. Anicteric sclera. Moist mucous membranes. Neck: No JVD. No bruit. Cardiovascular: irregularly irregular, unable to appreciate murmur, rub or gallop. Pulmonary: Clear to auscultation bilaterally. No rales, rhonchi, or wheezing. Abdomen: Bowel sounds x 4, soft. No rebound, guarding or tenderness. No organomegaly. Extremities: No clubbing, cyanosis or edema. +2 pedal pulses bilaterally. Skin: Warm and dry. _ (1) Sepsis Sepsis type: sepsis due to unspecified organism Qualified Code(s): A41.9 - Sepsis, unspecified organism
[2018-06-26] MEDS ORDERED: METOPROLOL SUCC 50MG EXT REL TAB PO ONE (10:42)
[2018-06-26] MEDS: CLINDAMYCIN HCL 150 MG CAP PO SCH ×3 (13:21→20:34)
[2018-06-26] MEDS ORDERED: WARFARIN SOD 4 MG TAB PO SCH (16:00)
[2018-06-26] MEDS: WARFARIN SOD 5 MG TAB PO SCH (17:25)
[2018-06-26] MEDS: DIGOXIN 0.125 MG TAB PO SCH (17:26)
[2018-06-26 17:29] LABS: Appearance Urine Cloudy (Clear); Bacteria Urine Automated Negative (Negative); Bilirubin Urine Negative (Negative); Color Urine Yellow; Epithelial Cell Urine Auto 20-30 /lpf (0-5); Glucose Urine UA Negative (Negative); Ketones Urine Negative (Negative); Leukocyte Esterase Urine 1+ (Negative); Nitrite Urine Negative (Negative); Protein Urine Negative (Negative); Specific Gravity Urine 1.018 (1.000-1.030); Urobilinogen Urine Negative (Negative)
--- NOTE | 2018-06-26 18:29 | Hospitalist Progress Note ---
Date of Service June 26, 2018 Assessment & Plan (1) Sepsis: This is a 78 year old female with a significant PMH of Systolic CHF, Chronic atrial fib on warfarin, HTN, hx of tachy dayday syn s/p PPM, Gerd, Anxiety who presents to [facility] due to ill feeling x 1 week. In ED patient was noted to be in atrial fib with RVR. Was given IV metoprolol 5 mg as well as IV Cardizem 15 mg. Patient did have episodic hypotension post Cardizem as well as continued tachycardia. She was given 1 L of fluid. She was afebrile on initial presentation however her WBC 12.7, elevated BUN and creatinine to 46 and 1.41. Mag and TSH are WNL. Initial EKG revealed heart rate 143 prolonged QTC of 558ms. Upon examination patient appears to have bilate ral lower extremity venous stasis cellulitis along with KARISHMA which is most likely causing her RVR. Upon admission pt meets for possible SIRS/sepsis criteria for WBC 12.7, heart rate greater than 100, SBP less than 100 Criteria may also be due to KARISHMA -was from admission started on ceftriaxone and then -have upgraded from ceftriaxone to Cefepime and Vancomycin on 06/25/18 -the admission blood cultures with no growth to date -the 06/25/18 blood cultures which were drawn before cefepime and Vancomycin are still pending -continue cefepime and vancomycin for now, awaiting 06/25/18 blood culture results -06/26/18 clinically improved, the leg erythema appears resolved, blood cultures negative to date. transitioned to oral clindamyin 300 mg QID (2) Bilateral lower leg cellulitis: -antibiotics as above -ultrasound of bilateral lower extremities 06/25/2018: 1. There is no sonographic evidence of deep venous thrombosis identified in the right or left lower extremity. 2. A popliteal cyst is noted on the right. (3) KARISHMA (acute kidney injury): has resolved with IV fluids monitor renal function while on vancomycin (4) Chronic atrial fibrillation: atrial fibrillation with rapid ventricular response may be exacerbated by underlying infection holding off further digoxin for now INR is 3.3 on 06/24/18 and coumadin held 06/25/18 coumadin as 4 mg given 06/26/18 resuming coumadin 5 mg daily as INR is 1.7, metoprolol have been titrated back up to usual outpatient dose of metoprolol succinate 200mg bid as blood pressure appears to be tolerating the beta blockers (5) Systolic CHF: -EF 40-45%, currently euvolemic -moderate mitral valve Regurgitation -mild tricuspid Regurgitation metoprolol have been titrated back up to usual outpatient dose of metoprolol succinate 200mg bid as blood pressure appears to be tolerating the beta blockers continue lasix 40 mg daily hold aldactone and lisinopril because blood pressure controlled but not very high (6) Yeast dermatitis: -nystatin/triamcinolone cream bid (7) 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 Pacemaker interogation completed on 06/25/18 (8) HTN (hypertension): metoprolol have been titrated back up to usual outpatient dose of metoprolol succinate 200mg bid as blood pressure appears to be tolerating the beta blockers continue lasix 40 mg daily hold aldactone and lisinopril because blood pressure controlled but not very high (9) Hypothyroidism: -continue levothyroxine -TSH 2.83 (10) Anxiety: -continue nortriptyline at HS (11) Prolonged Q-T interval on ECG: -QTC 558ms on admission -QTC 467ms on 06/24/18 -QTC 540 on 06/25/18 EKG Morbid Obesity with BMI 47.7 PT/OT discussed with patient about poor functional status with relative immobility and she and her agreeable to allow major case detective to apply for inpatient physical rehabilitation after the hospital stay (12) DVT prophylaxis: coumadin Follow Up: PCP Dr. Nath upon discharge Subjective patient seen and examined earlier heart rate better controlled denies chest pain. denies abdominal pain. denies vomiting. the leg erythema appears resolved. blood cultures negative to date. transitioned to oral clindamyin. discussed with patient about poor functional status with relative immobility and she and her agreeable to allow major case detective to apply for inpatient physical rehabilitation after the hospital stay Physical Exam 2 Vital Signs (Past 24 Hours): Last Vital Signs Temp 36.5 C 06/26/18 16:02 Pulse 88 06/26/18 17:26 Resp 24 06/26/18 16:02 BP 100/75 06/26/18 16:02 Pulse Ox 97 06/26/18 16:02 Physical Exam: Gen: Morbidly obese Head: Normocephalic, Atraumatic Eyes: Sclera normal, no conjunctival injection, PERRLA, EOMI ENT: Gross hearing intact, normal pharynx, mucous membranes dry Neck: supple, no adenopathy, No JVD, no bruit, Resp: Clear to auscultation b/l, no wheeze, rales, rhonchi. Normal insp/exp effort, no accessory muscle use CV: controlled heart rate, irregular rhythm, no murmur, rub, gallop, or ectopy Abd: +obesity, +BS x 4, soft, nontender, nondistended Musculoskeletal/Extremities: the leg erythema appears resolved Skin: warm, moist, no rash, mild turgor, cap refill < 2sec Neuro: Alert and oriented x 3 _ (1) Sepsis Sepsis type: sepsis due to unspecified organism Qualified Code(s): A41.9 - Sepsis, unspecified organism (2) Systolic CHF Heart failure chronicity: chronic Qualified Code(s): I50.22 - Chronic systolic (congestive) heart failure (3) HTN (hypertension) Hypertension type: essential hypertension Qualified Code(s): I10 - Essential (primary) hypertension (4) Hypothyroidism Hypothyroidism type: unspecified Qualified Code(s): E03.9 - Hypothyroidism, unspecified
[2018-06-26] MEDS: ATORVASTATIN 20 MG TAB PO SCH (20:34)
[2018-06-26] MEDS: NORTRIPTYLINE HCL 25 MG CAP PO SCH (20:34)
[2018-06-27] MEDS ORDERED: VANCOMYCIN HCL 1,750 MG in SODIUM CHLORIDE 0.9% 500 ML IV SCH
[2018-06-27] MEDS: LEVOTHYROXINE SODIUM 125 MCG TABLET PO SCH (06:17)
[2018-06-27 06:56] LABS: Creatinine Clr Calc Pharmacy 69.3 ml/min; Est GFR (African American) 67.3; Est GFR (Non-African American) 58.1
[2018-06-27] MEDS: PARoxetine HCl 20 MG TAB PO SCH (07:48)
[2018-06-27] MEDS: FUROSEMIDE 40 MG TAB PO SCH (07:49)
[2018-06-27] MEDS: NYSTATIN/TRIAMCIN CR 15 GM TUBE EXT SCH ×2 (07:49→20:55)
[2018-06-27] MEDS: METOPROLOL SUCC 50MG EXT REL TAB PO SCH ×2 (07:49→20:52)
[2018-06-27] MEDS: CLINDAMYCIN HCL 150 MG CAP PO SCH ×4 (07:49→20:54)
[2018-06-27 08:17] LABS: INR 1.4 (0.9-1.1); Prothrombin Time 14.2 Seconds (9.0-12.0)
--- NOTE | 2018-06-27 10:05 | Cardiology Progress Note ---
Date of Service June 27, 2018 Assessment & Plan (1) Atrial fibrillation with RVR: Patient with chronically elevated atrial fibrillation rates with increased exacerbation with missed beta-ken dosing and rates being driven by underlying medical issues rates improved with resuming home doses, however, still on the high side will add cardizem cd 120mg po to regimen cont metoprolol and dig INR of 1.4 today, cont coumadin f/u as outpatient with [facility] clinic ok to d/c from tele or from hospital from cardiac standpoint (2) Pacemaker: (3) Mild obstructive sleep apnea: (4) History of tachycardia-bradycardia syndrome: (5) Sepsis: (6) Bilateral lower leg cellulitis: Subjective Pt seen and examined, a little lethargic this AM but feeling well. Denies cp, sob, palpitations, lightheadedness or dizziness. Tele reviewed: afib rates 90's. Review of Systems All systems reviewed & are unremarkable except as noted in HPI & below Physical Exam 2 Vital Signs (Past 24 Hours): Last Vital Signs Temp 36.3 C L 06/27/18 07:14 Pulse 97 H 06/27/18 07:14 Resp 20 06/27/18 07:14 BP 135/106 H 06/27/18 07:14 Pulse Ox 94 06/27/18 07:14 Physical Exam: General: Awake, alert and oriented x 3. No acute distress. HEENT: Normocephalic, atraumatic. Pupils equal, round and reactive to light and accommodation. Extraocular muscles are intact. Anicteric sclera. Moist mucous membranes. Neck: No JVD. No bruit. Cardiovascular: irregularly irregular, unable to appreciate murmur, rub or gallop. Pulmonary: Clear to auscultation bilaterally. No rales, rhonchi, or wheezing. Abdomen: Bowel sounds x 4, soft. No rebound, guarding or tenderness. No organomegaly. Extremities: No clubbing, cyanosis or edema. +2 pedal pulses bilaterally. Skin: Warm and dry. _ (1) Sepsis Sepsis type: sepsis due to unspecified organism Qualified Code(s): A41.9 - Sepsis, unspecified organism
[2018-06-27] MEDS: dilTIAZem HCL 120 MG CAPCR PO SCH (10:37)
[2018-06-27] MEDS: WARFARIN SOD 5 MG TAB PO SCH (15:52)
[2018-06-27] MEDS: DIGOXIN 0.125 MG TAB PO SCH (15:53)
--- NOTE | 2018-06-27 16:06 | Hospitalist Progress Note ---
Date of Service June 27, 2018 Assessment & Plan (1) Sepsis: This is a 78 year old female with a significant PMH of Systolic CHF, Chronic atrial fib on warfarin, HTN, hx of tachy dayday syn s/p PPM, Gerd, Anxiety who presents to [facility] due to ill feeling x 1 week. In ED patient was noted to be in atrial fib with RVR. Was given IV metoprolol 5 mg as well as IV Cardizem 15 mg. Patient did have episodic hypotension post Cardizem as well as continued tachycardia. She was given 1 L of fluid. She was afebrile on initial presentation however her WBC 12.7, elevated BUN and creatinine to 46 and 1.41. Mag and TSH are WNL. Initial EKG revealed heart rate 143 prolonged QTC of 558ms. Upon examination patient appears to have bilateral lower extremity venous stasis and cellulitis along with KARISHMA which is most likely causing her RVR. Upon admission pt meets for possible SIRS/sepsis criteria for WBC 12.7, heart rate greater than 100, SBP less than 100 Criteria may also be due to KARISHMA -was from admission started on ceftriaxone on 06/23/18 and then -upgraded from ceftriaxone to Cefepime and Vancomycin on 06/24/18 -the admission blood cultures with no growth to date -the 06/25/18 no growth to date -06/26/18 clinically improved, the leg erythema appears resolved, transitioned to oral clindamyin 300 mg QID -will continue clindamycin (2) Bilateral lower leg cellulitis: -antibiotics as above -ultrasound of bilateral lower extremities 06/25/2018: 1. There is no sonographic evidence of deep venous thrombosis identified in the right or left lower extremity. 2. A popliteal cyst is noted on the right. (3) KARISHMA (acute kidney injury): resolved (4) Chronic atrial fibrillation: atrial fibrillation with rapid ventricular response may be exacerbated by underlying infection holding off further digoxin for now INR is 3.3 on 06/24/18 and coumadin held 06/25/18 coumadin as 4 mg given 06/26/18 resuming coumadin 5 mg daily as INR is 1.7, metoprolol have been titrated back up to usual outpatient dose of metoprolol succinate 200mg bid as blood pressure appears to be tolerating the beta blockers 06/27/18 INR is 1.4, continue coumadin, continue metoprolol, cardiology added add cardizem cd 120mg po to regimen and recommended transfer off telemetry floor (5) Systolic CHF: -EF 40-45%, currently euvolemic -moderate mitral valve Regurgitation -mild tricuspid Regurgitation metoprolol have been titrated back up to usual outpatient dose of metoprolol succinate 200mg bid as blood pressure appears to be tolerating the beta blockers continue lasix 40 mg daily hold aldactone and lisinopril because blood pressure controlled but not very high (6) Yeast dermatitis: -nystatin/triamcinolone cream bid (7) 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 Pacemaker interogation completed on 06/25/18 (8) HTN (hypertension): metoprolol have been titrated back up to usual outpatient dose of metoprolol succinate 200mg bid as blood pressure appears to be tolerating the beta blockers continue lasix 40 mg daily hold aldactone and lisinopril because blood pressure controlled but not very high (9) Hypothyroidism: -continue levothyroxine -TSH 2.83 (10) Anxiety: -continue nortriptyline at HS (11) Prolonged Q-T interval on ECG: -QTC 558ms on admission -QTC 467ms on 06/24/18 -QTC 540 on 06/25/18 EKG will have follow up EKG Morbid Obesity with BMI 47.7 PT/OT had previously discussed with patient about poor functional status with relative immobility and she and her agreeable to allow insurance case manager to apply for inpatient physical rehabilitation after the hospital stay (12) DVT prophylaxis: coumadin Follow Up: PCP Dr. Nath upon discharge Subjective Patient denies acute pain of the chest of the legs. Denies palpitations. Denies abdominal pain. no vomiting Physical Exam 2 Vital Signs (Past 24 Hours): Last Vital Signs Temp 36.3 C L 06/27/18 15:57 Pulse 102 H 06/27/18 15:57 Resp 20 06/27/18 15:57 BP 107/83 06/27/18 15:57 Pulse Ox 97 06/27/18 15:57 Constitutional: WD/WN, vitals as above Eyes: PERRL, conjunctivae normal, anicteric sclerae EOM intact bilaterally ENMT: external ear and nose normal, oropharynx normal Neck: trachea midline, no thyromegaly Respiratory: normal respiratory effort, lungs clear to auscultation Cardiovascular: Rate/Rhythm: regular rate Gastrointestinal (Abdomen): normal bowel sounds, soft, nontender, no hepatosplenomegaly Musculoskeletal: Head/Neck/Chest: normocephalic and head atraumatic Neurologic: PERRL, EOMI, accommodation nl, no face palsy, no dysarthria Psychiatric: A+Ox3, euthymic affect _ (1) Sepsis Sepsis type: sepsis due to unspecified organism Qualified Code(s): A41.9 - Sepsis, unspecified organism (2) Systolic CHF Heart failure chronicity: chronic Qualified Code(s): I50.22 - Chronic systolic (congestive) heart failure (3) HTN (hypertension) Hypertension type: essential hypertension Qualified Code(s): I10 - Essential (primary) hypertension (4) Hypothyroidism Hypothyroidism type: unspecified Qualified Code(s): E03.9 - Hypothyroidism, unspecified
[2018-06-27] MEDS: NORTRIPTYLINE HCL 25 MG CAP PO SCH (20:54)
[2018-06-27] MEDS: ATORVASTATIN 20 MG TAB PO SCH (20:54)
[2018-06-28] MEDS: LEVOTHYROXINE SODIUM 125 MCG TABLET PO SCH (05:37)
[2018-06-28 06:55] LABS: INR 1.7 (0.9-1.1); Prothrombin Time 16.5 Seconds (9.0-12.0)
[2018-06-28 06:57] LABS: Creatinine Clr Calc Pharmacy 82.4 ml/min; Est GFR (African American) 83.1; Est GFR (Non-African American) 71.7
[2018-06-28 08:05] LABS: BUN Creatinine Ratio 27.1 (10-20); Calcium 8.3 mg/dl (8.5-10.1); Creatinine Clr Calc Pharmacy 72.3 ml/min; Est GFR (Non-African American) 61.2; Magnesium 2.1 mg/dl (1.8-2.4)
[2018-06-28 08:13] LABS: Troponin I 0.078 ng/ml (0-0.045)
[2018-06-28] MEDS: NYSTATIN/TRIAMCIN CR 15 GM TUBE EXT SCH (08:26)
[2018-06-28] MEDS: PARoxetine HCl 20 MG TAB PO SCH (08:26)
[2018-06-28] MEDS: dilTIAZem HCL 120 MG CAPCR PO SCH (08:26)
[2018-06-28] MEDS: CLINDAMYCIN HCL 150 MG CAP PO SCH ×4 (08:26→20:24)
[2018-06-28] MEDS: FUROSEMIDE 40 MG TAB PO SCH (08:26)
[2018-06-28] MEDS: METOPROLOL SUCC 50MG EXT REL TAB PO SCH ×2 (08:26→20:25)
[2018-06-28] MEDS ORDERED: VANCOMYCIN TROUGH ONE (11:30)
--- NOTE | 2018-06-28 15:21 | Hospitalist Progress Note ---
Date of Service June 28, 2018 Assessment & Plan (1) Sepsis: This is a 78 year old female with a significant PMH of Systolic CHF, Chronic atrial fib on warfarin, HTN, hx of tachy dayday syn s/p PPM, Gerd, Anxiety who presents to [facility] due to ill feeling x 1 week. In ED patient was noted to be in atrial fib with RVR. Was given IV metoprolol 5 mg as well as IV Cardizem 15 mg. Patient did have episodic hypotension post Cardizem as well as continued tachycardia. She was given 1 L of fluid. She was afebrile on initial presentation however her WBC 12.7, elevated BUN and creatinine to 46 and 1.41. Mag and TSH are WNL. Initial EKG revealed heart rate 143 prolonged QTC of 558ms. Upon examination patient appears to have bilateral lower extremity venous stasis and cellulitis along with KARISHMA which is most likely causing her RVR. Upon admission pt meets for possible SIRS/sepsis criteria for WBC 12.7, heart rate greater than 100, SBP less than 100 Criteria may also be due to KARISHMA -was from admission started on ceftriaxone on 06/23/18 and then -upgraded from ceftriaxone to Cefepime and Vancomycin on 06/24/18 -the admission blood cultures with no growth to date -the 06/25/18 no growth to date -06/26/18 clinically improved, the leg erythema appears resolved, transitioned to oral clindamyin 300 mg QID -will continue clindamycin. will plan on last day of antibiotics as 06/30/18 to complete 7 day course of total antibiotics (2) Bilateral lower leg cellulitis: -antibiotics as above -ultrasound of bilateral lower extremities 06/25/2018: 1. There is no sonographic evidence of deep venous thrombosis identified in the right or left lower extremity. 2. A popliteal cyst is noted on the right. (3) KARISHMA (acute kidney injury): resolved (4) Chronic atrial fibrillation: atrial fibrillation with rapid ventricular response may be exacerbated by underlying infection holding off further digoxin for now INR is 3.3 on 06/24/18 and coumadin held 06/25/18 coumadin as 4 mg given 06/26/18 resuming coumadin 5 mg daily as INR is 1.7, metoprolol have been titrated back up to usual outpatient dose of metoprolol succinate 200mg bid as blood pressure appears to be tolerating the beta blockers 06/27/18 INR is 1.4, continue coumadin, continue metoprolol, cardiology added add cardizem cd 120mg po to regimen and recommended transfer off telemetry floor 06/28/18: INR is 1.7, continue coumadin, continue metoprolol, cardiazem (5) Systolic CHF: -EF 40-45%, currently euvolemic -moderate mitral valve Regurgitation -mild tricuspid Regurgitation metoprolol have been titrated back up to usual outpatient dose of metoprolol succinate 200mg bid as blood pressure appears to be tolerating the beta blockers continue lasix 40 mg daily will resume spirolactone 25 mg daily hold lisinopril for now to avoid hypotension (6) Yeast dermatitis: clinical improvements; hold nystatin/triamcinolone cream bid for now (7) 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 Pacemaker interogation completed on 06/25/18 (8) HTN (hypertension): metoprolol have been titrated back up to usual outpatient dose of metoprolol succinate 200mg bid as blood pressure appears to be tolerating the beta blockers continue lasix 40 mg daily will resume spirolactone 25 mg daily hold lisinopril for now to avoid hypotension (9) Hypothyroidism: -continue levothyroxine -TSH 2.83 (10) Anxiety: -continue nortriptyline at HS (11) Prolonged Q-T interval on ECG: -QTC 558ms on admission -QTC 467ms on 06/24/18 -QTC 540 on 06/25/18 EKG -06/28/18 Patient had abnormal EKGs reviewed by cardiology Dr. Matias as the initial 06/28/18 was poor qaulity EKG and then a pace rhythm. Patient was asymptomatic when these EKGs were done and when troponins were drawn which was 0.078 but as per review with center receptionist, these results do no support myocardial infarction Morbid Obesity with BMI 47.7 PT/OT had previously discussed with patient about poor functional status with relative immobility and she and her agreeable to allow manager rn case to apply for inpatient physical rehabilitation after the hospital stay (12) DVT prophylaxis: coumadin Follow Up: PCP Dr. Nath upon discharge Tentative outpatient appointments 07/01/2018 10:40 AM Provider Carla Nath MD [facility] 07/13/2018 3:00 PM Provider Yessenia Hopkins PA-C Department Cardiology, [facility] 07/15/2018 11:00 AM Provider [facility] Cardiology, [facility] 07/15/2018 11:35 AM Provider Lab [facility] Laboratory, [facility] 07/15/2018 5:30 PM Provider [facility] 07/28/2018 2:00 PM Provider Yessenia Hopkins PA-C Department Cardiology, [facility] Subjective Patient had abnormal EKGs today reviewed by cardiology Dr. Matias as the initial 06/28/18 was poor qaulity EKG and then a pace rhythm. Patient was asymptomatic when these EKGs were done and when troponins were drawn which was 0.078 but as per review with center receptionist, these results do no support myocardial infarction Patient denies acute pain of the chest of the legs. Denies palpitations. Denies abdominal pain. no vomiting Physical Exam 2 Vital Signs (Past 24 Hours): Last Vital Signs Temp 36.3 C L 06/28/18 07:26 Pulse 72 06/28/18 07:26 Resp 18 06/28/18 07:26 BP 123/86 06/28/18 07:26 Pulse Ox 97 06/28/18 11:08 Constitutional: WD/WN, vitals as above Eyes: PERRL, conjunctivae normal, anicteric sclerae EOM intact bilaterally ENMT: external ear and nose normal, oropharynx normal Neck: trachea midline, no thyromegaly Respiratory: normal respiratory effort, lungs clear to auscultation Cardiovascular: Rate/Rhythm: regular rate Gastrointestinal (Abdomen): normal bowel sounds, soft, nontender, no hepatosplenomegaly Musculoskeletal: Head/Neck/Chest: normocephalic and head atraumatic Neurologic: PERRL, EOMI, accommodation nl, no face palsy, no dysarthria Psychiatric: A+Ox3, euthymic affect _ (1) Systolic CHF Heart failure chronicity: chronic Qualified Code(s): I50.22 - Chronic systolic (congestive) heart failure (2) Hypothyroidism Hypothyroidism type: unspecified Qualified Code(s): E03.9 - Hypothyroidism, unspecified (3) Sepsis Sepsis type: sepsis due to unspecified organism Qualified Code(s): A41.9 - Sepsis, unspecified organism (4) HTN (hypertension) Hypertension type: essential hypertension Qualified Code(s): I10 - Essential (primary) hypertension
[2018-06-28] MEDS: SPIRONOLACTONE 25 MG TAB PO SCH (16:30)
[2018-06-28] MEDS: WARFARIN SOD 5 MG TAB PO SCH (16:30)
[2018-06-28] MEDS: DIGOXIN 0.125 MG TAB PO SCH (16:31)
[2018-06-28] MEDS: ATORVASTATIN 20 MG TAB PO SCH (20:24)
[2018-06-28] MEDS: NORTRIPTYLINE HCL 25 MG CAP PO SCH (20:24)
[2018-06-29] MEDS: LEVOTHYROXINE SODIUM 125 MCG TABLET PO SCH (05:38)
[2018-06-29 08:10] LABS: INR 2.1 (0.9-1.1); Prothrombin Time 19.9 Seconds (9.0-12.0)
[2018-06-29] MEDS: CLINDAMYCIN HCL 150 MG CAP PO SCH ×3 (09:02→15:19)
[2018-06-29] MEDS: PARoxetine HCl 20 MG TAB PO SCH (09:02)
[2018-06-29] MEDS: SPIRONOLACTONE 25 MG TAB PO SCH (09:39)
[2018-06-29] MEDS: METOPROLOL SUCC 50MG EXT REL TAB PO SCH ×2 (09:40→10:43)
[2018-06-29] MEDS: dilTIAZem HCL 120 MG CAPCR PO SCH ×2 (09:40→10:42)
[2018-06-29] MEDS: FUROSEMIDE 40 MG TAB PO SCH (09:40)
[2018-06-29] MEDS ORDERED: ALUMINUM/MAGNESIUM SUSP 30 ML UDC PO ONE (14:30)
--- NOTE | 2018-06-29 15:09 | Hospitalist Progress Note ---
Date of Service June 29, 2018 Assessment & Plan (1) Sepsis: This is a 78 year old female with a significant PMH of Systolic CHF, Chronic atrial fib on warfarin, HTN, hx of tachy dayday syn s/p PPM, Gerd, Anxiety who presents to [facility] due to ill feeling x 1 week. In ED patient was noted to be in atrial fib with RVR. Was given IV metoprolol 5 mg as well as IV Cardizem 15 mg. Patient did have episodic hypotension post Cardizem as well as continued tachycardia. She was given 1 L of fluid. She was afebrile on initial presentation however her WBC 12.7, elevated BUN and creatinine to 46 and 1.41. Mag and TSH are WNL. Initial EKG revealed heart rate 143 prolonged QTC of 558ms. Upon examination patient appears to have bilateral lower extremity venous stasis and cellulitis along with KARISHMA which is most likely causing her RVR. Upon admission pt meets for possible SIRS/sepsis criteria for WBC 12.7, heart rate greater than 100, SBP less than 100 Criteria may also be due to KARISHMA -was from admission started on ceftriaxone on 06/23/18 and then -upgraded from ceftriaxone to Cefepime and Vancomycin on 06/24/18 -the admission blood cultures with no growth to date -the 06/25/18 no growth to date -06/26/18 clinically improved, the leg erythema appears resolved, transitioned to oral clindamyin 300 mg QID -will continue clindamycin. will plan on last day of antibiotics as 06/30/18 to complete 7 day course of total antibiotics (2) Bilateral lower leg cellulitis: -antibiotics as above -ultrasound of bilateral lower extremities 06/25/2018: 1. There is no sonographic evidence of deep venous thrombosis identified in the right or left lower extremity. 2. A popliteal cyst is noted on the right. (3) KARISHMA (acute kidney injury): resolved (4) Chronic atrial fibrillation: atrial fibrillation with rapid ventricular response may be exacerbated by underlying infection holding off further digoxin for now INR is 3.3 on 06/24/18 and coumadin held 06/25/18 coumadin as 4 mg given 06/26/18 resuming coumadin 5 mg daily as INR is 1.7, metoprolol have been titrated back up to usual outpatient dose of metoprolol succinate 200mg bid as blood pressure appears to be tolerating the beta blockers 06/27/18 INR is 1.4, continue coumadin, continue metoprolol, cardiology added add cardizem cd 120mg po to regimen and recommended transfer off telemetry floor 06/28/18: INR is 1.7, continue coumadin, continue metoprolol, cardiazem 06/29/18: INR is 2.1, continue coumadin, continue metoprolol, cardiazem (5) Systolic CHF: -EF 40-45%, currently euvolemic -moderate mitral valve Regurgitation -mild tricuspid Regurgitation metoprolol was initially reduced on this admission due to low blood pressures but have have been titrated back up to usual outpatient dose of metoprolol succinate 200mg bid as blood pressure appears to be tolerating the beta blockers because patient has been doing well on fluid restriction of 1500 ml to prevent fluid overload patient's blood pressure on low normal side. 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 patient should stop taking lisinopril and is being discharged on reduced lasix of 40 mg daily (9) Hypothyroidism: -continue levothyroxine -TSH 2.83 (10) Anxiety: -continue nortriptyline at HS (11) Prolonged Q-T interval on ECG: -QTC 558ms on admission -QTC 467ms on 06/24/18 -QTC 540 on 06/25/18 EKG -06/28/18 Patient had abnormal EKGs reviewed by cardiology Dr. Matias as the initial 06/28/18 was poor qaulity EKG and then a pace rhythm. Patient was asymptomatic when these EKGs were done and when troponins were drawn which was 0.078 but as per review with gas appliance adjuster, these results do no support myocardial infarction Morbid Obesity with BMI 50.6 PT/OT had completed the evaluations had previously discussed with patient about poor functional status with relative immobility and she and her agreeable to allow porter sample case to apply for inpatient physical rehabilitation after the hospital stay Discharge to [facility] (12) DVT prophylaxis: coumadin Discharge diagnosis Cellulitis of bilateral lower extremity, initial admission for sepsism atrial fibrillation with rapid ventricular response, QT prolongation,Hypothyroidism ( on Levothyroxine), Morbid Obesity with body mass index 50.6, Hypertension ( controlled), acute kidney injury (resolved) Discharge Instructions Discharge to [facility] new hospital discharge medication of diltiazem 120 mg daily last day of clindamycin antibiotics as 06/30/18 to complete 7 day course of total antibiotics because patient has been doing well on fluid restruction of 1500 ml to prevent fluid overload patient's blood pressure on low normal side. patient should stop taking lisinopril and is being discharged on reduced lasix of 40 mg daily 07/01/2018 10:40 AM Provider Carla Nath MD Department Family Practice [facility] 07/13/2018 3:00 PM Provider Yessenia Hopkins PA-C Department Cardiology, [facility] 07/15/2018 11:00 AM Provider Pacer [facility] Department Cardiology, [facility] 07/15/2018 11:35 AM Provider Lab [facility] Laboratory, [facility] 07/15/2018 5:30 PM Provider [facility] 2:00 PM Provider Yessenia Hopkins PA-C Department Cardiology, [facility] Subjective Patient denies acute pain of the chest of the legs. Denies palpitations. Denies abdominal pain. no vomiting denies chest pain. denies palpitations. Discharge to [facility] Physical Exam 2 Vital Signs (Past 24 Hours): Last Vital Signs Temp 36.3 C L 06/29/18 14:29 Pulse 77 06/29/18 14:29 Resp 18 06/29/18 14:29 BP 134/79 06/29/18 14:29 Pulse Ox 92 06/29/18 14:29 Constitutional: WD/WN, vitals as above Eyes: PERRL, conjunctivae normal, anicteric sclerae EOM intact bilaterally ENMT: external ear and nose normal, oropharynx normal Neck: trachea midline, no thyromegaly Respiratory: normal respiratory effort, lungs clear to auscultation Cardiovascular: Rate/Rhythm: regular rate Gastrointestinal (Abdomen): normal bowel sounds, soft, nontender, no hepatosplenomegaly Musculoskeletal: Head/Neck/Chest: normocephalic and head atraumatic Neurologic: PERRL, EOMI, accommodation nl, no face palsy, no dysarthria Psychiatric: A+Ox3, euthymic affect _ (1) Systolic CHF Heart failure chronicity: chronic Qualified Code(s): I50.22 - Chronic systolic (congestive) heart failure (2) Hypothyroidism Hypothyroidism type: unspecified Qualified Code(s): E03.9 - Hypothyroidism, unspecified (3) Sepsis Sepsis type: sepsis due to unspecified organism Qualified Code(s): A41.9 - Sepsis, unspecified organism (4) HTN (hypertension) Hypertension type: essential hypertension Qualified Code(s): I10 - Essential (primary) hypertension
[2018-06-29] MEDS: DIGOXIN 0.125 MG TAB PO SCH (15:19)
[2018-06-29] MEDS: WARFARIN SOD 5 MG TAB PO SCH (15:19)
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
== END 2018-06-29 15:40 | DRG 872 ==
LOC: ED 08:43 → 2E 13:41 → 4W 06-27 18:26

== ENCOUNTER 2021-08-02 11:38 | Inpatient (IN) ==
[2021-08-02] MEDS ORDERED: AMPICILLIN/SULBACTAM SOD 3,000 MG in 0.9 % SODIUM CHLORIDE 100 ML IV STA (12:47)
--- NOTE | 2021-08-02 12:54 | Emergency Department Note ---
History of Present Illness General Chief complaint: Animal Bite Stated complaint: CAT BITE ON BACK OF R LEG Time Seen by Provider: 08/02/21 12:27 Source: patient and family ( who Is at the bedside) Mode of arrival: ambulatory Limitations: no limitations History of Present Illness Maximum Pain Intensity: 0 This patient is a 81-year-old female who comes in after having right leg pain and redness after getting either bit or scratched by her cat a. She says she inadvertently stepped on the cat's tail and she is not sure if it bit or scratched her. The cat is an inside cat with up-to-date rabies vaccines. The patient says her tetanus with is within 10 years and up-to-date she is not sure if she had a fever or not. She has no chest pain shortness of breath or abdominal pain no nausea or vomiting. She did have some vaginal bleeding last night and this has been an ongoing issue for her. She is also on Coumadin and is followed by the anticoagulation clinic. Home Medications Medication Instructions Recorded Confirmed Type atorvastatin 20 mg tablet 20 mg PO HS 09/26/20 08/02/21 History digoxin 125 mcg (0.125 mg) tablet 125 mcg PO QAM 09/26/20 08/02/21 History diltiazem HCl 120 mg 120 mg PO QAM 09/26/20 08/02/21 History capsule,extended release 24 hr furosemide 40 mg tablet See Rx Instructions .ROUTE .COMPLEX 09/26/20 08/02/21 History levothyroxine 125 mcg tablet 125 mcg PO DAILYBB 09/26/20 08/02/21 History metoprolol succinate 200 mg 200 mg PO BID 09/26/20 08/02/21 History tablet,extended release 24 hr potassium chloride 10 mEq 10 meq PO QAM 09/26/20 08/02/21 History capsule,extended release sertraline 50 mg tablet 50 mg PO QAM 09/26/20 08/02/21 History spironolactone 25 mg tablet 25 mg PO QAM 09/26/20 08/02/21 History warfarin 5 mg tablet 5 mg PO QDD 09/26/20 08/02/21 History Allergies Allergy/AdvReac Type Severity Reaction Status Date / Time No Known Allergies Allergy Verified 08/02/21 13:56 Past Med/Surg History Medical History (Updated 08/02/21 @ 16:36 by Juan Kraft MD) Anxiety Atrial fibrillation Chronic atrial fibrillation Current use of mcc anticoagulation GERD (gastroesophageal reflux disease) History of tachycardia-bradycardia syndrome HTN (hypertension) Hypothyroidism Mild obstructive sleep apnea Prolonged Q-T interval on ECG Systolic CHF Tricuspid valve regurgitation Yeast dermatitis Surgical History (Updated 08/02/21 @ 16:36 by Juan Kraft MD) History of carpal tunnel release History of knee replacement Pacemaker S/P placement of cardiac pacemaker Family History Brother Brain cancer Mother Kidney malignancy Father Myocardial infarction Social History Smoking Status: Never smoker Second Hand Exposure: No; Hx Alcohol Use: No Hx Substance Use: No Preferred Language: Irish Communication Ability: Effective Cop Required: No Beliefs That Will Affect Care: None marital status: Current Living Situation: Spouse Current Living Situation Comment: ambulates with walker Feels Safe at Home: Yes Assistive Devices: Glasses and Walker Review of Systems A total of 10 systems reviewed and were otherwise negative Physical Exam Vital Signs Vital Signs - 24 hr 08/02/21 11:40 08/02/21 13:40 08/02/21 14:00 Temperature 36.8 C Temperature Source Temporal Artery Scan Pulse Rate 86 62 Pulse Rate [Apical] 61 Pulse Rate from SpO2 Sensor 63 Respiratory Rate 18 24 27 H Respiratory Effort / Characteristics Non-Labored Spontaneous Non-Labored Spontaneous Blood Pressure 121/78 Blood Pressure [Left Arm] 132/69 Blood Pressure Mean 92 Blood Pressure Mean [Left Arm] 90 Pulse Oximetry 95 94 94 Oxygen Delivery Method Room Air Room Air Room Air Sepsis Recent Fever Within 48 Hours No Sepsis New/Unexplained Change in Mental Status No Sepsis Action Taken by Nursing No Action Required 08/02/21 14:01 08/02/21 14:30 08/02/21 15:00 Temperature Temperature Source Pulse Rate 60 68 Pulse Rate [Apical] Pulse Rate from SpO2 Sensor 60 61 Respiratory Rate 24 26 H Respiratory Effort / Characteristics Non-Labored Spontaneous Non-Labored Spontaneous Blood Pressure 112/60 128/74 Blood Pressure [Left Arm] Blood Pressure Mean 77 92 Blood Pressure Mean [Left Arm] Pulse Oximetry 93 95 Oxygen Delivery Method Room Air Room Air Sepsis Recent Fever Within 48 Hours Sepsis New/Unexplained Change in Mental Status Sepsis Action Taken by Nursing 08/02/21 15:30 08/02/21 15:49 08/02/21 16:00 Temperature Temperature Source Pulse Rate 61 78 60 Pulse Rate [Apical] Pulse Rate from SpO2 Sensor 62 61 Respiratory Rate 25 H 28 H Respiratory Effort / Characteristics Spontaneous Spontaneous Blood Pressure 127/63 Blood Pressure [Left Arm] Blood Pressure Mean 84 Blood Pressure Mean [Left Arm] Pulse Oximetry 95 94 Oxygen Delivery Method Room Air Room Air Sepsis Recent Fever Within 48 Hours Sepsis New/Unexplained Change in Mental Status Sepsis Action Taken by Nursing General: Well developed well nourished older female who appears in no acute distress, breathing comfortably on room air. Normal speech HEENT: Normal cephalic atraumatic. Pupils are equal round and reactive to light. Extraocular movements are intact. Oropharynx is pink with moist mucous membranes. No swelling of the mouth lips or tongue. Neck: Supple with a midline trachea. No meningeal signs or stiffness, no JVD or bruits. No Stridor. Chest: Clear to auscultation bilaterally. No wheezes or rhonchi. No increased work of breathing. Heart: Regular rate and rhythm without murmurs or gallops. Abdomen: Soft nontender, nondistended without rebound guarding or rigidity. Extremities: No cyanosis clubbing she has at least 3 puncture brown in the lower garcia on the right there is no fluctuance or pus drainage there is surrounding erythema of the garcia into the foot and going up the lateral leg. Normal motor and sensation. No crepitus or subcutaneous air. Spine/Back. Non tender to palpation. No CVA tenderness Skin: Good turgor without rashes. Neurologic exam: Cranial nerves two through 12 are intact. Motor and sensation are intact and symmetrical throughout. Course Administered Medications Digoxin (Digoxin 0.125 Mg Tab) [facility] [facility] [place] Stop: 09/01/21 15:44 Last Admin: 08/02/21 15:49 Dose: 0.125 mg Documented by: [id number] Discontinued Medications Ampicillin Sodium/Sulbactam Sodium 3,000 mg/ Sodium Chloride 108 mls @ 200 mls/hr IV NOW STA; Protocol Stop: 08/02/21 13:19 Last Infusion: 08/02/21 13:46 Dose: 0 mls/hr Documented by: [id number] Admin: 08/02/21 13:13 Dose: 200 mls/hr Documented by: [id number] Ampicillin Sodium/Sulbactam Sodium 1,500 mg/ Sodium Chloride 104 mls @ 200 mls/hr IV NOW STA; Protocol Stop: 08/02/21 15:48 Last Admin: 08/02/21 15:50 Dose: 200 mls/hr Documented by: [id number] Medical Decision Making Differential Diagnosis Cat bite, cellulitis, anticoagulation complication, sepsis, vaginal bleeding, anemia, electrolyte or metabolic emboli, Covid Medical Records Attestation: I reviewed the patient's medical records. Home Medications Current Medication List: was personally reviewed by me Laboratory Data Attestation: I reviewed the patient's lab results. Result diagrams: 08/02/21 13:03 08/02/21 13:03 Lab Results 08/02/21 08/02/21 08/02/21 Range/Units 13:03 13:03 13:03 WBC 7.84 (4.8-10.8) K/uL RBC 4.57 (4.2-5.4) M/uL Hgb 13.4 (12.0-16.0) g/dL Hct 42.6 (37-47) % MCV 93.2 (80-100) fL MCH 29.3 (25-34) pg MCHC 31.5 L (32-36) g/dL RDW Std Deviation 50.2 H (36.4-46.3) fL RDW Coeff of Elizabeth 14.9 H (11.5-14.5) % Plt Count 295 (130-400) K/uL MPV 9.3 (7.4-10.4) fL Immature Gran % (Auto) 0.3 % Neut % (Auto) 65.1 % Lymph % (Auto) 22.8 % [place] % (Auto) 10.3 % Eos % (Auto) 1.1 % Baso % (Auto) 0.4 % Neut # (Auto) 5.10 (1.4-6.5) K/uL Lymph # (Auto) 1.79 (1.2-3.4) K/uL [place] # (Auto) 0.81 H (0.11-0.59) K/uL Eos # (Auto) 0.09 (0-0.5) K/uL Baso # (Auto) 0.03 (0-0.2) K/uL Immature Gran # (Auto) 0.02 (0.00-0.02) K/uL PT 15.8 H (9.0-12.0) Seconds INR 1.5 H (0.9-1.1) APTT 32.3 H (21.0-31.0) Seconds PTT Ratio 1.2 Sodium 140 (136-145) mmol/L Potassium 3.7 (3.5-5.1) mmol/L Chloride 103 (98-107) mmol/L Carbon Dioxide 31 (21-32) mmol/L Anion Gap 6 (3-11) BUN 22 (6-23) mg/dl Creatinine 0.98 (0.6-1.2) mg/dl Est Cr Clr Drug Dosing 55.0 ml/min Est GFR ( Amer) 62.7 ml/min Est GFR (Non-Af Amer) 54.1 ml/min BUN/Creatinine Ratio 22.4 H (10-20) Glucose 102 H (70-99(Fasting)) mg/dl Lactate (0.4-2.0) mmol/L Calcium 8.8 (8.5-10.1) mg/dl Magnesium 2.3 (1.7-2.4) mg/dl Total Bilirubin 1.0 (0.2-1.0) mg/dl AST 11 L (13-39) U/L ALT 8 (7-52) U/L Alkaline Phosphatase 98 (34-104) U/L Total Protein 7.3 (6.0-8.3) gm/dl Albumin 3.9 (3.4-5.0) gm/dl Globulin 3.4 (2.5-4.0) gm/dl Albumin/Globulin Ratio 1.1 (0.9-2) Procalcitonin (0-0.5) ng/ml SARS-CoV-2, RNA, NAAT (NEGATIVE) 08/02/21 08/02/21 08/02/21 Range/Units 13:03 13:03 15:19 WBC (4.8-10.8) K/uL RBC (4.2-5.4) M/uL Hgb (12.0-16.0) g/dL Hct (37-47) % MCV (80-100) fL MCH (25-34) pg MCHC (32-36) g/dL RDW Std Deviation (36.4-46.3) fL RDW Coeff of Elizabeth (11.5-14.5) % Plt Count (130-400) K/uL MPV (7.4-10.4) fL Immature Gran % (Auto) % Neut % (Auto) % Lymph % (Auto) % [place] % (Auto) % Eos % (Auto) % Baso % (Auto) % Neut # (Auto) (1.4-6.5) K/uL Lymph # (Auto) (1.2-3.4) K/uL [place] # (Auto) (0.11-0.59) K/uL Eos # (Auto) (0-0.5) K/uL Baso # (Auto) (0-0.2) K/uL Immature Gran # (Auto) (0.00-0.02) K/uL PT (9.0-12.0) Seconds INR (0.9-1.1) APTT (21.0-31.0) Seconds PTT Ratio Sodium (136-145) mmol/L Potassium (3.5-5.1) mmol/L Chloride (98-107) mmol/L Carbon Dioxide (21-32) mmol/L Anion Gap (3-11) BUN (6-23) mg/dl Creatinine (0.6-1.2) mg/dl Est Cr Clr Drug Dosing ml/min Est GFR ( Amer) ml/min Est GFR (Non-Af Amer) ml/min BUN/Creatinine Ratio (10-20) Glucose (70-99(Fasting)) mg/dl Lactate 0.9 (0.4-2.0) mmol/L Calcium (8.5-10.1) mg/dl Magnesium (1.7-2.4) mg/dl Total Bilirubin (0.2-1.0) mg/dl AST (13-39) U/L ALT (7-52) U/L Alkaline Phosphatase (34-104) U/L Total Protein (6.0-8.3) gm/dl Albumin (3.4-5.0) gm/dl Globulin (2.5-4.0) gm/dl Albumin/Globulin Ratio (0.9-2) Procalcitonin < 0.05 (0-0.5) ng/ml SARS-CoV-2, RNA, NAAT NEGATIVE (NEGATIVE) Imaging Data Attestation: I personally reviewed and interpreted this imaging study as follows: My Impression: Chest x-raypacemaker in place. No acute infiltrate, failure, pneumothorax seen. Radiologist's Impression: Chest X-Ray 08/02/21 12:47 XR chest 1V portable CLINICAL HISTORY: SEPSIS TECHNIQUE: Single frontal radiograph of the chest was obtained. Comparison: Comparison is made to chest one view 08/08/2018 FINDINGS: Dual lead pacemaker is seen. Cardiomegaly is noted. The lungs are clear. No evidence of pleural effusion or pneumothorax. IMPRESSION: No acute chest disease. Cardiomegaly is noted. No evidence of pneumonia. ACT 112: Negative or not required by law. Electronically signed by: Mil Membreno M.D. 08/02/2021 1:01 PM ECG Data Attestation: I personally reviewed and interpreted this ECG as follows: Indication: + weakness Rate (beats per minute): 60 Rhythm: + other (Ventricular paced rhythm) ECG Intervals/blocks: + IVCD ECG [place]: + Left axis deviation ECG Findings: no PACs or no PVCs Comparison ECG Date: from (08/10/18) Change: no significant change MDM Narrative She comes in as described above. 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 On exam, she has a significant cellulitis from a cat bite. I told her that we need to give her IV antibiotics and admission. I did order a full sepsis type work-up. Her vital signs are stable. She also is on anticoagulation and has a history of vaginal bleeding which she bled more last night. She has a history of A. fib and and in light of this I also ordered a chest x-ray and EKG. She was reassessed frequently. She has not had the COVID vaccine and I did Covid test her and tested patient for admission. Testing was negative. Her EKG shows a paced rhythm and she is not in A. fib. Her inflammatory markers thus far not elevated. Given the fact that she has a cat bite with associated cellulitis and several other comorbidities I do think she would benefit from IV antibiotics and admission/observation. I have consulted the [facility] hospitalist team for these measures. Cardiac monitoring: Orders placed in EMR for cardiac monitoring upon my interpretation the patient was noted to be in a paced rhythm of 62 Impression & Plan Cellulitis, Cat bite, Pacemaker, Current use of mcc anticoagulation, Abnormal vaginal bleeding, Lab test negative for COVID-19 virus Discharge Plan Visit Data Chief Complaint: Animal Bite Stated Complaint: CAT BITE ON BACK OF R LEG ED Provider: Juan Kraft Discharge Problem: Cellulitis, Cat bite, Pacemaker, Current use of mcc anticoagulation, Abnormal vaginal bleeding, Lab test negative for COVID-19 virus Forms Stand Alone Forms: My [facility] Prescriptions Prescriptions: No Action furosemide 40 mg tablet See Rx Instructions .ROUTE .COMPLEX RF: 0 potassium chloride 10 mEq capsule, extended release 10 meq PO QAM RF: 0 metoprolol succinate 200 mg tablet extended release 24 hr 200 mg PO BID RF: 0 levothyroxine 125 mcg tablet 125 mcg PO DAILYBB RF: 0 warfarin 5 mg tablet 5 mg PO QDD RF: 0 diltiazem HCl 120 mg capsule,extended release 24hr 120 mg PO QAM RF: 0 digoxin 125 mcg (0.125 mg) tablet 125 mcg PO QAM RF: 0 sertraline 50 mg tablet 50 mg PO QAM RF: 0 spironolactone 25 mg tablet 25 mg PO QAM RF: 0 atorvastatin 20 mg tablet 20 mg PO HS RF: 0 Referrals Referrals: Derik Sanz, [Primary Care Provider] -
--- NOTE | 2021-08-02 13:02 | XRay Report ---
XR chest 1V portable CLINICAL HISTORY: SEPSIS TECHNIQUE: Single frontal radiograph of the chest was obtained. Comparison: Comparison is made to chest one view 08/08/2018 FINDINGS: Dual lead pacemaker is seen. Cardiomegaly is noted. The lungs are clear. No evidence of pleural effus ion or pneumothorax. IMPRESSION: No acute chest disease. Cardiomegaly is noted. No evidence of pneumonia. ACT 112: Negative or not required by law. Electronically signed by: Mil Membreno M.D. 08/02/2021 1:01 PM
[2021-08-02 13:19] LABS: Basophils # (auto) 0.03 K/uL (0-0.2); Basophils % (auto) 0.4 %; Eosinophils # (auto) 0.09 K/uL (0-0.5); Eosinophils % (auto) 1.1 %; Hematocrit (blood only) 42.6 % (37-47); Hemoglobin 13.4 g/dL (12.0-16.0); Immature Granulocytes # (auto) 0.02 K/uL (0.00-0.02); Immature Granulocytes % (auto) 0.3 %; Lymphocytes # (auto) 1.79 K/uL (1.2-3.4); Lymphocytes % (auto) 22.8 %; Mean Corpuscular Hemoglobin 29.3 pg (25-34); Mean Corpuscular Hgb Conc 31.5 g/dL (32-36); Mean Corpuscular Volume 93.2 fL (80-100); Mean Platelet Volume 9.3 fL (7.4-10.4); Monocytes # (auto) 0.81 K/uL (0.11-0.59); Monocytes % (auto) 10.3 %; Neutrophils % (auto) 65.1 %; Platelet Count 295 K/uL (130-400); RDW Coefficient of Variation 14.9 % (11.5-14.5); RDW Standard Deviation 50.2 fL (36.4-46.3); Red Blood Count 4.57 M/uL (4.2-5.4); White Blood Count 7.84 K/uL (4.8-10.8)
[2021-08-02 13:39] LABS: INR 1.5 (0.9-1.1); Partial Thromboplastin Ratio 1.2; Partial Thromboplastin Time 32.3 Seconds (21.0-31.0); Prothrombin Time 15.8 Seconds (9.0-12.0)
[2021-08-02 13:53] LABS: Albumin Globulin Ratio 1.1 (0.9-2); Albumin Level 3.9 gm/dl (3.4-5.0); BUN Creatinine Ratio 22.4 (10-20); Calcium 8.8 mg/dl (8.5-10.1); Est GFR (African American) 62.7 ml/min; Est GFR (Non-African American) 54.1 ml/min; Globulin 3.4 gm/dl (2.5-4.0); Magnesium 2.3 mg/dl (1.7-2.4); Potassium 3.7 mmol/L (3.5-5.1); Total Protein 7.3 gm/dl (6.0-8.3)
--- NOTE | 2021-08-02 15:15 | History & Physical Report ---
Date of Service August 02, 2021 Assessment & Plan (1) Cellulitis: (2) Cat bite: Plan: -Admit to [facility] on observation -IV Unasyn 3 g received in the ER, continue for now, can switch to Augmentin upon discharge likely tomorrow -No leukocytosis, WBC 7.84, trend with a.m. labs -Afebrile -Erythematous area of RLE outlined and dated by myself at bedside -Follow blood cultures x2 (3) HTN (hypertension): Plan: -Patient missed all of her morning medications today including digoxin, diltiazem, metoprolol succinate so will administer those now -BP is stable in the high 120s over 70s -She has not received any fluids, encourage p.o. intake, allow diet (4) Chronic atrial fibrillation: Plan: -Continue Coumadin, INR 1.5 today, was 3.17 on 07/29 so unlikely possibility of DVT, if worsening edema of RLE then can consider doppler u/s. - Hgb is stable at 13 - Vaginal bleeding is chronic, and has outpatient evaluation with floating labor gang supervisor Dr. Munoz scheduled for 08/23/21 as per EPIC, if worsening bleeding with increased INR then can consider HEEL STAINER consult while here in the hospital or sooner as outpatient. Has PCP appt already scheduled for 08/13/21. (5) Systolic CHF: Plan: - Hx of such, will hold on lasix for now, can resume tomorrow - Last echo reviewed with outpatient EPIC by myself, from Jun 2018: Mild concentric LVH, EF of 40 to 45%, aortic valve sclerosis is moderate, moderate MR, mild TR, no longer has any pulmonary hypertension compared to prior studies in June 2016 (6) Hypothyroidism: Plan: -Continue levothyroxine (7) Mild obstructive sleep apnea: Plan: -Wears 2L NC at bedtime, not CPAP, No oxygen during the day DVT PPx: - teds, scds, continue Coumadin CODE: Full code Dispo: From home, observation, likely to remain in the hospital overnight with expected discharge tomorrow History of Present Illness Chief Complaint: Cat bite Primary Care Provider: Derik Sanz, DO This is a 81 yo F with PMhx of afib on coumadin, HTN, HD, systolic CHF, pacemaker, hypothyroidism, GERD, and anxiety who presents from home after accidentally stepping on her pet cat's tail, and was bite/scratched on the right lower leg yesterday around 10am. She has been able to walk on her foot without much difficulty. The area around where the cat bit her is dark red and warm, there are also numerous scratch brown around the medial aspect of her lower leg however these do not appear to be acutely infected. Her who is present at bedside stated that he helped clean the area with peroxide yesterday. They have kept Neosporin on it overnight. She is able to move her ankle however reports some tightness, no acute worsening pain. There is no significant worsening swelling of the right leg compared to the left. She denies any fever, chills or sweats. She has also had issues with vaginal bleeding as an ongoing issue,and was advised by her [employer] to reduce reduce her amount of Coumadin to 2.5 on 07/31, and then advised to take a full dose of 5 mg on 08/01. INR today is 1.5. She reports having to change multiple pads due to heavy bleeding with multiple clots the sizes of quarters. She has been following with Dr. Munoz with [facility] [employer] as an outpatient and is scheduled for an outpatient biopsy in the near future. Allergies Allergy/AdvReac Type Severity Reaction Status Date / Time No Known Allergies Allergy Verified 08/02/21 13:56 Home Medications Medication Instructions Recorded Confirmed Type atorvastatin 20 mg tablet 20 mg PO HS 09/26/20 08/02/21 History digoxin 125 mcg (0.125 mg) tablet 125 mcg PO QAM 09/26/20 08/02/21 History diltiazem HCl 120 mg 120 mg PO QAM 09/26/20 08/02/21 History capsule,extended release 24 hr furosemide 40 mg tablet See Rx Instructions .ROUTE .COMPLEX 09/26/20 08/02/21 History levothyroxine 125 mcg tablet 125 mcg PO DAILYBB 09/26/20 08/02/21 History metoprolol succinate 200 mg 200 mg PO BID 09/26/20 08/02/21 History tablet,extended release 24 hr potassium chloride 10 mEq 10 meq PO QAM 09/26/20 08/02/21 History capsule,extended release sertraline 50 mg tablet 50 mg PO QAM 09/26/20 08/02/21 History spironolactone 25 mg tablet 25 mg PO QAM 09/26/20 08/02/21 History warfarin 5 mg tablet 5 mg PO QDD 09/26/20 08/02/21 History Past Med/Surg History Medical History (Updated 08/02/21 @ 16:36 by Juan Kraft MD) Anxiety Atrial fibrillation Chronic atrial fibrillation Current use of skilled nursing anticoagulation GERD (gastroesophageal reflux disease) History of tachycardia-bradycardia syndrome HTN (hypertension) Hypothyroidism Mild obstructive sleep apnea Prolonged Q-T interval on ECG Systolic CHF Tricuspid valve regurgitation Yeast dermatitis Surgical History (Updated 08/02/21 @ 16:36 by Juan Kraft MD) History of carpal tunnel release History of knee replacement Pacemaker S/P placement of cardiac pacemaker Family History Brother Brain cancer Mother Kidney malignancy Father Myocardial infarction Social History Smoking Status: Never smoker Second Hand Exposure: No; Do You Dip or Chew Tobacco: No; Hx Alcohol Use: Yes Alcohol type: beer Hx Substance Use: No Preferred Language: Georgian Communication Ability: Effective 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 Beliefs That Will Affect Care: None marital status: Current Living Situation: Spouse Current Living Situation Comment: ambulates with walker Other Information That Helps Us Care for You: No Feels Safe at Home: Yes Safety Concerns: Feels Safe At This Time Assistive Devices: Denture - Upper, Glasses and Walker Review of Systems Review of Systems: Constitutional: No fever, sweats or chills Eyes: No diplopia, no worsening or blurred vision ENT: normal hearing, no trouble swallowing Respiratory: No cough, sputum, dyspnea at rest or on exertion Cardiovascular: No chest pain, tightness or palpitations Abdomen: No pain, nausea, vomiting, diarrhea or constipation Musculoskeletal: Right lower extremity as per HPI, no joint pain, calf pain, minimal right lower extremity swelling around erythematous region d/t cat bite Neurologic: No weakness, numbness/tingling, or balance problems Psychiatric: +hx of anxiety on medication, no depression Skin: + RLE cat bite, multiple areas of scratches/ abrasion, otherwise no rash or itch Physical Exam Physical Exam: General: awake, alert, no apparent distress, obese with BMI of 39.6 Head: Normocephalic, atraumatic ENT: PERRL, EOMI, no pharyngeal exudate, mucous membranes moist Chest: Clear to auscultation, on room air,+ expiratory wheeze over the right marquez. Cardiac: Regular rate and rhythm, + loud systolic murmur grade 3/6, no JVD, normal peripheral pulses, good capillary refill Abdominal: NABS x 4 quadrants, soft, nondistended, nontender to palpation, no rebound or guarding Extremities: Right lower extremity with area of erythema which extends from the ankle midway up the garcia, cat bite on anterior aspect, multiple scratches on medial aspect of lower extremity, minimal edema around the ankle. Otherwise normal inspection, no peripheral edema or erythema, calfs nontender to palpation Psych: Normal mood and affect Neuro: AAO x 3, strength intact bilaterally and rated 5/5, no motor deficits, speech is clear, no peripheral sensory deficits Results & Data Results & Data ([facility]) Vital Signs (Past 12 Hours) Vital Signs Temp Pulse Pulse Resp BP BP Pulse Ox 08/02/21 14:30 60 24 93 08/02/21 14:01 112/60 08/02/21 14:00 62 27 H 94 08/02/21 13:40 61 24 132/69 94 08/02/21 11:40 36.8 C 86 18 121/78 95 Laboratory Results 08/02/21 13:03 Aerobic Blood Culture - Pending Blood Anaerobic Blood Culture - Pending 08/02/21 13:03 Aerobic Blood Culture - Pending Blood Anaerobic Blood Culture - Pending 08/02/21 08/02/21 08/02/21 13:03 13:03 13:03 WBC RBC Hgb Hct MCV MCH MCHC RDW Std Deviation RDW Coeff of Elizabeth Plt Count MPV Immature Gran % (Auto) Neut % (Auto) Lymph % (Auto) Whitley % (Auto) Eos % (Auto) Baso % (Auto) Neut # (Auto) Lymph # (Auto) Whitley # (Auto) Eos # (Auto) Baso # (Auto) Immature Gran # (Auto) PT INR APTT PTT Ratio Sodium 140 Potassium 3.7 Chloride 103 Carbon Dioxide 31 Anion Gap 6 BUN 22 Creatinine 0.98 Est Cr Clr Drug Dosing 55.0 Est GFR ( Amer) 62.7 Est GFR (Non-Af Amer) 54.1 BUN/Creatinine Ratio 22.4 H Glucose 102 H Lactate 0.9 Calcium 8.8 Magnesium 2.3 Total Bilirubin 1.0 AST 11 L ALT 8 Alkaline Phosphatase 98 Total Protein 7.3 Albumin 3.9 Globulin 3.4 Albumin/Globulin Ratio 1.1 Procalcitonin < 0.05 08/02/21 08/02/21 13:03 13:03 WBC 7.84 RBC 4.57 Hgb 13.4 Hct 42.6 MCV 93.2 MCH 29.3 MCHC 31.5 L RDW Std Deviation 50.2 H RDW Coeff of Elizabeth 14.9 H Plt Count 295 MPV 9.3 Immature Gran % (Auto) 0.3 Neut % (Auto) 65.1 Lymph % (Auto) 22.8 Whitley % (Auto) 10.3 Eos % (Auto) 1.1 Baso % (Auto) 0.4 Neut # (Auto) 5.10 Lymph # (Auto) 1.79 Whitley # (Auto) 0.81 H Eos # (Auto) 0.09 Baso # (Auto) 0.03 Immature Gran # (Auto) 0.02 PT 15.8 H INR 1.5 H APTT 32.3 H PTT Ratio 1.2 Sodium Potassium Chloride Carbon Dioxide Anion Gap BUN Creatinine Est Cr Clr Drug Dosing Est GFR ( Amer) Est GFR (Non-Af Amer) BUN/Creatinine Ratio Glucose Lactate Calcium Magnesium Total Bilirubin AST ALT Alkaline Phosphatase Total Protein Albumin Globulin Albumin/Globulin Ratio Procalcitonin Diagnostic Findings Chest X-Ray 08/02/21 12:47 XR chest 1V portable CLINICAL HISTORY: SEPSIS TECHNIQUE: Single frontal radiograph of the chest was obtained. Comparison: Comparison is made to chest one view 08/08/2018 FINDINGS: Dual lead pacemaker is seen. Cardiomegaly is noted. The lungs are clear. No evidence of pleural effusion or pneumothorax. IMPRESSION: No acute chest disease. Cardiomegaly is noted. No evidence of pneumonia. ACT 112: Negative or not required by law. Electronically signed by: Mil Membreno M.D. 08/02/2021 1:01 PM ECG Additional Comments: 02-AUG-2021 13:37:27 [facility]-EDSTAT ROUTINE RETRIEVAL Ventricular-paced rhythm Abnormal ECG When compared with ECG of 10-AUG-2018 10:18, Vent. rate has decreased BY 21 BPM 25mm/s10mm/[id number]: [id number] by: REFERRED SELF Unconfirmed Vent. rate 60 BPM UT interval * ms QRS duration 170 ms QT/QTc 532/532 ms P-R-T axes * -84 48 Supervising Physician Co-Signing Physician Notes This is an attending consult note for full reports and documentation please see the full note by PA see above. Agree with assessment and plan as above following is a synopsis. Patient presenting after patient received a cat bite right lower extremity yesterday at around 10 AM subsequently patient developed significant erythema of the right leg above the ankle joint. Patient is able to ambulate however significant erythema is noted. No significant swelling and patient's lower extremities are symmetrical. Otherwise patient in the company of her currently. Patient initiated on Unasyn. Head atraumatic chest largely clear. Abdomen soft nontender. Right lower extremity above the ankle circumferential erythema is noted. Tenderness to palpation no significant swelling otherwise noted. Marking for the cellulitic site has been noted. Clearing has been noted at the demarcation site currently. Continue with Unasyn cultures obtained. Monitor for now. (1) Systolic CHF Heart failure chronicity: chronic Qualified Code(s): I50.22 - Chronic systolic (congestive) heart failure (2) Hypothyroidism Hypothyroidism type: unspecified Qualified Code(s): E03.9 - Hypothyroidism, unspecified (3) HTN (hypertension) Hypertension type: essential hypertension Qualified Code(s): I10 - Essential (primary) hypertension
[2021-08-02] MEDS ORDERED: AMPICILLIN/SULBACTAM SOD 1,500 MG in 0.9 % SODIUM CHLORIDE 100 ML IV STA (15:17)
[2021-08-02] MEDS: DIGOXIN 0.125 MG TAB PO SCH (15:49)
[2021-08-02] MEDS ORDERED: ACETAMINOPHEN 325 MG TAB PO PRN (17:15)
[2021-08-02] MEDS: WARFARIN SOD 5 MG TAB PO SCH (18:07)
[2021-08-02] MEDS: FUROSEMIDE 40 MG TAB PO SCH (20:16)
[2021-08-02] MEDS: METOPROLOL SUCC 50MG EXT REL TAB PO SCH (20:16)
[2021-08-02] MEDS: ATORVASTATIN 20 MG TAB PO SCH (20:16)
--- NOTE | 2021-08-02 22:45 | Electrocardiogram Report ---
Test Reason : Blood Pressure : / mmHG Vent. Rate : 060 BPM Atrial Rate : 060 BPM P-R Int : 000 ms QRS Dur : 170 ms QT Int : 532 ms P-R-T Axes : 000 -84 048 degrees QTc Int : 532 ms Ventricular-paced rhythm Abnormal ECG When compared with ECG of 10-AUG-2018 10:18, Vent. rate has decreased BY 21 BPM Confirmed by Aden Howell ([id number]) on 08/02/2021 10:45:16 PM Referred By: REFERRED SELF Confirmed By:Aden Howell
[2021-08-03] MEDS: LEVOTHYROXINE SODIUM 125 MCG TABLET PO SCH (05:30)
[2021-08-03 05:45] LABS: Hematocrit (blood only) 38.7 % (37-47); Hemoglobin 12.3 g/dL (12.0-16.0); Mean Corpuscular Hemoglobin 29.6 pg (25-34); Mean Corpuscular Hgb Conc 31.8 g/dL (32-36); Mean Platelet Volume 9.2 fL (7.4-10.4); Platelet Count 264 K/uL (130-400); Red Blood Count 4.16 M/uL (4.2-5.4); White Blood Count 7.69 K/uL (4.8-10.8)
[2021-08-03 05:58] LABS: INR 1.6 (0.9-1.1); Prothrombin Time 16.5 Seconds (9.0-12.0)
[2021-08-03 06:18] LABS: Albumin Level 3.4 gm/dl (3.4-5.0); BUN Creatinine Ratio 22.2 (10-20); Bilirubin,Total 0.7 mg/dl (0.2-1.0); Calcium 8.1 mg/dl (8.5-10.1); Creatinine Clr Calc Pharmacy 60.1 ml/min; Est GFR (African American) 69.5 ml/min; Globulin 3.3 gm/dl (2.5-4.0); Total Protein 6.7 gm/dl (6.0-8.3)
[2021-08-03 08:18] LABS: Potassium 3.8 mmol/L (3.5-5.1)
[2021-08-03] MEDS: FUROSEMIDE 40 MG TAB PO SCH ×2 (08:52→20:16)
[2021-08-03] MEDS: SPIRONOLACTONE 25 MG TAB PO SCH (08:52)
[2021-08-03] MEDS: METOPROLOL SUCC 50MG EXT REL TAB PO SCH ×2 (08:54→20:16)
[2021-08-03] MEDS: dilTIAZem HCL 120 MG CAPCR PO SCH (08:55)
[2021-08-03] MEDS: POTASSIUM CHLORIDE 10 MEQ TABCR PO SCH (08:56)
[2021-08-03] MEDS: SERTRALINE HCL 50 MG TABLET PO SCH (08:56)
[2021-08-03] MEDS: DIGOXIN 0.125 MG TAB PO SCH (09:36)
[2021-08-03] MEDS: WARFARIN SOD 5 MG TAB PO SCH (17:15)
--- NOTE | 2021-08-03 17:54 | Hospitalist Progress Note ---
Date of Service August 03, 2021 Assessment & Plan (1) Cellulitis: (2) Cat bite: Plan: -Admit to [facility] on observation -IV Unasyn 3 g received in the ER, continue for now, can switch to Augmentin upon discharge likely tomorrow -No leukocytosis, WBC 7.84, trend with a.m. labs -Afebrile -Erythematous area of RLE outlined and dated by myself at bedside -Follow blood cultures x2-has been negative so far -Local wounds seem to be improving -We will continue IV antibiotic for now likely discharge tomorrow on oral Augmentin (3) HTN (hypertension): Plan: -Patient missed all of her morning medications today including digoxin, diltiazem, metoprolol succinate so will administer those now -BP is stable in the high 120s over 70s -She has not received any fluids, encourage p.o. intake, allow diet -Blood pressure is controlled and remains on the lower side (4) Chronic atrial fibrillation: Plan: -Continue Coumadin, INR 1.5 today, was 3.17 on 07/29 so unlikely possibility of DVT, if worsening edema of RLE then can consider doppler u/s. - Hgb is stable at 13 - Vaginal bleeding is chronic, and has outpatient evaluation with receiving weigher Dr. Munoz scheduled for 08/23/21 as per [facility], if worsening bleeding with increased INR then can consider PLANNER SCHEDULER consult while here in the hospital or sooner as outpatient. -Has PCP appt already scheduled for 08/13/21. (5) Systolic CHF: Plan: - Hx of such, will hold on lasix for now, can resume tomorrow - Last echo reviewed with outpatient EPIC by myself, from Jun 2018: -Mild concentric LVH, EF of 40 to 45%, aortic valve sclerosis is moderate, moderate MR, mild TR, no longer has any pulmonary hypertension compared to prior studies in June 2016 -No evidence of fluid overload and/or CHF (6) Hypothyroidism: Plan: -Continue levothyroxine (7) Mild obstructive sleep apnea: Plan: -Wears 2L NC at bedtime, not CPAP, No oxygen during the day DVT PPx: - teds, scds, continue Coumadin CODE: Full code Dispo: From home, observation, Likely discharge tomorrow Admission and Anticipated Discharge Date Admission Date: August 02, 2021 Subjective 08/04/2011 The patient was seen and examined in medical floor She has been weak and lethargic with with some pain in the legs Denies any other symptoms Review of Systems Review of Systems: All systems reviewed and are unremarkable except as noted below Physical Exam Physical Exam: Sitting on a chair without any acute distress Constitutional: well developed, well nourished, + ill appearing and + obese Eyes: PERRL, conjunctivae normal, anicteric sclerae ENMT: external ear and nose normal, oropharynx normal Neck: trachea midline, no thyromegaly Respiratory: no respiratory distress Auscultation: + diminished lung sounds and + crackles (Minimal crackles at the bases) Cardiovascular: Rate/Rhythm: regular rate and regular rhythm; not tachycardic Heart Sounds: normal S1 and normal S2; no murmur Extremities: + edema (1+ edema bilaterally. With redness involving the right lower leg) Gastrointestinal (Abdomen): Inspection/Auscultation: normal bowel sounds; abdomen not distended Percussion/Palpation: abdomen soft; abdomen nontender Musculoskeletal: No acute arthritis in any joint Neurologic: Alert, awake and oriented x3 Results & Data Results & Data ([facility]) Vital Signs (Past 12 Hours) Vital Signs Temp Pulse Pulse Pulse Resp BP BP 08/03/21 15:56 36.5 C 61 20 103/67 08/03/21 09:36 68 08/03/21 08:52 68 102/60 96/59 L 08/03/21 07:30 36.6 C 79 18 108/65 Pulse Ox 08/03/21 15:56 93 08/03/21 09:36 08/03/21 08:52 08/03/21 07:30 93 Laboratory Results Short CBC 08/03/21 Range/Units 05:15 WBC 7.69 (4.8-10.8) K/uL Hgb 12.3 (12.0-16.0) g/dL Hct 38.7 (37-47) % Plt Count 264 (130-400) K/uL BMP 08/03/21 08/03/21 05:15 07:35 Sodium 137 Potassium 3.8 Chloride 104 Carbon Dioxide 28 BUN 20 Creatinine 0.90 Glucose 105 H Calcium 8.1 L Liver Function 08/03/21 08/03/21 Range/Units 05:15 07:35 Total Bilirubin 0.7 (0.2-1.0) mg/dl AST 10 L (13-39) U/L ALT 5 L (7-52) U/L Alkaline Phosphatase 79 (34-104) U/L Albumin 3.4 (3.4-5.0) gm/dl Medications Administered Current Inpatient Medications Acetaminophen (Acetaminophen 325 Mg Tab) 650 mg PO Q4H PRN PRN Reason: Moderate Pain Stop: 09/01/21 17:14 Atorvastatin Calcium (Atorvastatin 20 Mg Tab) 20 mg PO [facility] Stop: 09/01/21 20:59 Last Admin: 08/02/21 20:16 Dose: 20 mg Documented by: Digoxin (Digoxin 0.125 Mg Tab) 0.125 mg PO [facility] Stop: 09/01/21 15:44 Last Admin: 08/03/21 09:36 Dose: 0.125 mg Documented by: Diltiazem HCl (Diltiazem Hcl 120 Mg Capcr) 120 mg PO [facility] Stop: 09/02/21 08:59 Last Admin: 08/03/21 08:55 Dose: Not Given Documented by: Furosemide (Furosemide 40 Mg Tab) 40 mg PO [facility] Stop: 09/01/21 20:59 Last Admin: 08/02/21 20:16 Dose: 40 mg Documented by: Furosemide (Furosemide 40 Mg Tab) [address] [facility] Stop: 09/02/21 08:59 Last Admin: 08/03/21 08:52 Dose: Not Given Documented by: Levothyroxine Sodium (Levothyroxine Sodium 125 Mcg Tablet) 125 mcg PO DAILYBB [facility] Stop: 09/02/21 06:29 Last Admin: 08/03/21 05:30 Dose: 125 mcg Documented by: Metoprolol Succinate (Metoprolol Succ 50mg Ext Rel Tab) 200 mg PO BID [facility] Stop: 09/01/21 20:59 Last Admin: 08/03/21 08:54 Dose: Not Given Documented by: Potassium Chloride (Potassium Chloride 10 Meq Tabcr) [address] [facility] Stop: 09/02/21 08:59 Last Admin: 08/03/21 08:56 Dose: 10 meq Documented by: Sertraline HCl (Sertraline Hcl 50 Mg Tablet) 50 mg PO [facility] Stop: 09/02/21 08:59 Last Admin: 08/03/21 08:56 Dose: 50 mg Documented by: Spironolactone (Spironolactone 25 Mg Tab) 25 mg PO QAM [facility] Stop: 09/02/21 08:59 Last Admin: 08/03/21 08:52 Dose: Not Given Documented by: Warfarin Sodium (Warfarin Sod 5 Mg Tab) 5 mg PO QDD [facility] Stop: 09/01/21 17:59 Last Admin: 08/03/21 17:15 Dose: 5 mg Documented by: (1) Cellulitis Laterality: right Site of cellulitis: extremity Site of cellulitis of extremity: lower extremity Qualified Code(s): L03.115 - Cellulitis of right lower limb (2) Cat bite Encounter type: initial encounter Qualified Code(s): W55.01XA - Bitten by cat, initial encounter (3) HTN (hypertension) Hypertension type: essential hypertension Qualified Code(s): I10 - Essential (primary) hypertension (4) Systolic CHF Heart failure chronicity: chronic Qualified Code(s): I50.22 - Chronic systolic (congestive) heart failure (5) Hypothyroidism Hypothyroidism type: unspecified Qualified Code(s): E03.9 - Hypothyroidism, unspecified
[2021-08-03] MEDS: ATORVASTATIN 20 MG TAB PO SCH (20:16)
[2021-08-04] MEDS: LEVOTHYROXINE SODIUM 125 MCG TABLET PO SCH (05:58)
[2021-08-04 07:11] LABS: Basophils # (auto) 0.01 K/uL (0-0.2); Basophils % (auto) 0.1 %; Eosinophils # (auto) 0.15 K/uL (0-0.5); Eosinophils % (auto) 2.1 %; Hematocrit (blood only) 38.1 % (37-47); Immature Granulocytes # (auto) 0.01 K/uL (0.00-0.02); Immature Granulocytes % (auto) 0.1 %; Lymphocytes # (auto) 1.93 K/uL (1.2-3.4); Lymphocytes % (auto) 26.7 %; Mean Corpuscular Hemoglobin 29.1 pg (25-34); Mean Corpuscular Hgb Conc 31.5 g/dL (32-36); Mean Corpuscular Volume 92.3 fL (80-100); Mean Platelet Volume 9.4 fL (7.4-10.4); Monocytes # (auto) 0.81 K/uL (0.11-0.59); Monocytes % (auto) 11.2 %; Neutrophils # (auto) 4.33 K/uL (1.4-6.5); Neutrophils % (auto) 59.8 %; Platelet Count 241 K/uL (130-400); RDW Coefficient of Variation 14.8 % (11.5-14.5); RDW Standard Deviation 50.1 fL (36.4-46.3); Red Blood Count 4.13 M/uL (4.2-5.4); White Blood Count 7.24 K/uL (4.8-10.8)
[2021-08-04 07:35] LABS: BUN Creatinine Ratio 25.3 (10-20); Calcium 8.4 mg/dl (8.5-10.1); Creatinine Clr Calc Pharmacy 59.5 ml/min; Est GFR (African American) 68.6 ml/min; Est GFR (Non-African American) 59.2 ml/min; Potassium 3.7 mmol/L (3.5-5.1)
[2021-08-04 07:37] LABS: INR 1.8 (0.9-1.1); Prothrombin Time 18.2 Seconds (9.0-12.0)
[2021-08-04] MEDS: dilTIAZem HCL 120 MG CAPCR PO SCH (09:17)
[2021-08-04] MEDS: FUROSEMIDE 40 MG TAB PO SCH ×2 (09:18→20:42)
[2021-08-04] MEDS: POTASSIUM CHLORIDE 10 MEQ TABCR PO SCH (09:19)
[2021-08-04] MEDS: DIGOXIN 0.125 MG TAB PO SCH (09:19)
[2021-08-04] MEDS: SPIRONOLACTONE 25 MG TAB PO SCH (09:19)
[2021-08-04] MEDS: METOPROLOL SUCC 50MG EXT REL TAB PO SCH ×2 (09:20→20:42)
[2021-08-04] MEDS: SERTRALINE HCL 50 MG TABLET PO SCH (09:20)
--- NOTE | 2021-08-04 15:37 | Hospitalist Progress Note ---
Date of Service August 04, 2021 Assessment & Plan (1) Cellulitis: (2) Cat bite: Plan: -Admit to [facility] on observation -IV Unasyn 3 g received in the ER, continue for now, can switch to Augmentin upon discharge likely tomorrow -No leukocytosis, WBC 7.84, trend with a.m. labs -Afebrile -Erythematous area of RLE outlined and dated by myself at bedside -Follow blood cultures x2-has been negative so far -Local wounds seem to be improving -We will continue IV antibiotic for now likely discharge tomorrow on oral Augmentin -Clinically much better without any ulceration at the biopsy site and the redness and tenderness have improved a lot -Has had physical therapy and likely discharge tomorrow morning (3) HTN (hypertension): Plan: -Patient missed all of her morning medications today including digoxin, diltiazem, metoprolol succinate so will administer those now -BP is stable in the high 120s over 70s -She has not received any fluids, encourage p.o. intake, allow diet -Blood pressure is controlled and remains on the lower side (4) Chronic atrial fibrillation: Plan: -Continue Coumadin, INR 1.5 today, was 3.17 on 07/29 so unlikely possibility of DVT, if worsening edema of RLE then can consider doppler u/s. - Hgb is stable at 13 - Vaginal bleeding is chronic, and has outpatient evaluation with office equipment technician Dr. Munoz scheduled for 08/23/21 as per [facility], if worsening bleeding with increased INR then can consider SOFTWARE TOOLS DEVELOPER consult while here in the hospital or sooner as outpatient. -Has PCP appt already scheduled for 08/13/21. (5) Systolic CHF: Plan: - Hx of such, will hold on lasix for now, can resume tomorrow - Last echo reviewed with outpatient EPIC by myself, from Jun 2018: -Mild concentric LVH, EF of 40 to 45%, aortic valve sclerosis is moderate, moderate MR, mild TR, no longer has any pulmonary hypertension compared to prior studies in June 2016 -No evidence of fluid overload and/or CHF (6) Hypothyroidism: Plan: -Continue levothyroxine (7) Mild obstructive sleep apnea: Plan: -Wears 2L NC at bedtime, not CPAP, No oxygen during the day DVT PPx: - teds, scds, continue Coumadin -INR of 2.8 CODE: Full code Dispo: From home, observation, Likely discharge tomorrow Admission and Anticipated Discharge Date Admission Date: August 04, 2021 Subjective 08/04/2011 The patient was seen and examined in medical floor She has been weak and lethargic with with some pain in the legs Denies any other symptoms 08/04/2021 The patient was seen and examined in medical floor She has been feeling much better and denies any pain in the legs No fever and or chills and does not have any other significant symptoms Review of Systems Review of Systems: All systems reviewed and are unremarkable except as noted below Physical Exam Physical Exam: Sitting on a chair without any acute distress Constitutional: well developed, well nourished, + ill appearing and + obese Eyes: PERRL, conjunctivae normal, anicteric sclerae ENMT: external ear and nose normal, oropharynx normal Neck: trachea midline, no thyromegaly Respiratory: no respiratory distress Auscultation: + diminished lung sounds and + crackles (Minimal crackles at the bases) Cardiovascular: Rate/Rhythm: regular rate and regular rhythm; not tachycardic Heart Sounds: normal S1 and normal S2; no murmur Extremities: + edema (1+ edema bilaterally. With redness involving the right lower leg-improved ) Gastrointestinal (Abdomen): Inspection/Auscultation: normal bowel sounds; abdomen not distended Percussion/Palpation: abdomen soft; abdomen nontender Results & Data Results & Data ([facility]) Vital Signs (Past 12 Hours) Vital Signs Temp Pulse Pulse Pulse Resp BP Pulse Ox 08/04/21 09:19 97 H 08/04/21 09:16 97 H 108/66 08/04/21 07:40 36.5 C 79 18 113/69 93 Laboratory Results Short CBC 08/04/21 Range/Units 06:55 WBC 7.24 (4.8-10.8) K/uL Hgb 12.0 (12.0-16.0) g/dL Hct 38.1 (37-47) % Plt Count 241 (130-400) K/uL BMP 08/04/21 06:55 Sodium 139 Potassium 3.7 Chloride 104 Carbon Dioxide 31 BUN 23 Creatinine 0.91 Glucose 101 H Calcium 8.4 L Medications Administered Current Inpatient Medications Acetaminophen (Acetaminophen 325 Mg Tab) 650 mg PO Q4H PRN PRN Reason: Moderate Pain Stop: 09/01/21 17:14 Atorvastatin Calcium (Atorvastatin 20 Mg Tab) 20 mg PO [facility] Stop: 09/01/21 20:59 Last Admin: 08/03/21 20:16 Dose: 20 mg Documented by: Digoxin (Digoxin 0.125 Mg Tab) [facility] Stop: 09/01/21 15:44 Last Admin: 08/04/21 09:19 Dose: 0.125 mg Documented by: Diltiazem HCl (Diltiazem Hcl 120 Mg Capcr) 120 mg PO [facility] Stop: 09/02/21 08:59 Last Admin: 08/04/21 09:17 Dose: 120 mg Documented by: Furosemide (Furosemide 40 Mg Tab) 40 mg PO [facility] Stop: 09/01/21 20:59 Last Admin: 08/03/21 20:16 Dose: 40 mg Documented by: Furosemide (Furosemide 40 Mg Tab) 80 [facility] Stop: 09/02/21 08:59 Last Admin: 08/04/21 09:18 Dose: 80 mg Documented by: Levothyroxine Sodium (Levothyroxine Sodium 125 Mcg Tablet) [facility] Stop: 09/02/21 06:29 Last Admin: 08/04/21 05:58 Dose: 125 mcg Documented by: Metoprolol Succinate (Metoprolol Succ 50mg Ext Rel Tab) 200 mg PO BID [facility] Stop: 09/01/21 20:59 Last Admin: 08/04/21 09:20 Dose: 200 mg Documented by: Potassium Chloride (Potassium Chloride 10 Meq Tabcr) 10 meq PO [facility] Stop: 09/02/21 08:59 Last Admin: 08/04/21 09:19 Dose: 10 meq Documented by: Sertraline HCl (Sertraline Hcl 50 Mg Tablet) 50 mg PO [facility] Stop: 09/02/21 08:59 Last Admin: 08/04/21 09:20 Dose: 50 mg Documented by: Spironolactone (Spironolactone 25 Mg Tab) [facility] Stop: 09/02/21 08:59 Last Admin: 08/04/21 09:19 Dose: 25 mg Documented by: Warfarin Sodium (Warfarin Sod 5 Mg Tab) 5 mg PO QDD [facility] Stop: 09/01/21 17:59 Last Admin: 08/03/21 17:15 Dose: 5 mg Documented by: (1) Cellulitis Laterality: right Site of cellulitis: extremity Site of cellulitis of extremity: lower extremity Qualified Code(s): L03.115 - Cellulitis of right lower limb (2) Cat bite Encounter type: initial encounter Qualified Code(s): W55.01XA - Bitten by cat, initial encounter (3) HTN (hypertension) Hypertension type: essential hypertension Qualified Code(s): I10 - Essential (primary) hypertension (4) Systolic CHF Heart failure chronicity: chronic Qualified Code(s): I50.22 - Chronic systolic (congestive) heart failure (5) Hypothyroidism Hypothyroidism type: unspecified Qualified Code(s): E03.9 - Hypothyroidism, unspecified
[2021-08-04] MEDS: WARFARIN SOD 5 MG TAB PO SCH (16:45)
[2021-08-04] MEDS: ATORVASTATIN 20 MG TAB PO SCH (20:42)
[2021-08-04 22:10] VITALS: O2SAT 95
[2021-08-05] MEDS: LEVOTHYROXINE SODIUM 125 MCG TABLET PO SCH (06:09)
[2021-08-05 07:45] LABS: Prothrombin Time 20.1 Seconds (9.0-12.0)
[2021-08-05 07:47] VITALS: BP 128/74; TEMP 97.5
[2021-08-05] MEDS ORDERED: AMOXICILLIN/CLAVULANATE 875 MG TAB PO SCH (08:00)
[2021-08-05] MEDS: DIGOXIN 0.125 MG TAB PO SCH (09:12)
[2021-08-05] MEDS: METOPROLOL SUCC 50MG EXT REL TAB PO SCH (09:15)
[2021-08-05] MEDS: dilTIAZem HCL 120 MG CAPCR PO SCH (09:15)
[2021-08-05] MEDS: POTASSIUM CHLORIDE 10 MEQ TABCR PO SCH (09:15)
[2021-08-05] MEDS: FUROSEMIDE 40 MG TAB PO SCH (09:15)
[2021-08-05] MEDS: SERTRALINE HCL 50 MG TABLET PO SCH (09:16)
[2021-08-05] MEDS: SPIRONOLACTONE 25 MG TAB PO SCH (09:16)
--- NOTE | 2021-08-05 11:38 | Hospitalist Progress Note ---
Date of Service August 05, 2021 Assessment & Plan (1) Cellulitis: Plan: Current Inpatient Medications Acetaminophen (Acetaminophen 325 Mg Tab) 650 mg PO Q4H PRN PRN Reason: Moderate Pain Stop: 09/01/21 17:14 Last Admin: 08/04/21 22:16 Dose: 650 mg Documented by: Amoxicillin/Clavulanate Potassium (Amoxicillin/Clavulanate 875 Mg Tab) 1 tab PO BIDM [facility] Stop: 08/12/21 07:59 Last Admin: 08/05/21 09:12 Dose: 1 tab Documented by: Atorvastatin Calcium (Atorvastatin 20 Mg Tab) 20 mg PO [facility] Stop: 09/01/21 20:59 Last Admin: 08/04/21 20:42 Dose: 20 mg Documented by: Digoxin (Digoxin 0.125 Mg Tab) 0.125 mg PO [facility] Stop: 09/01/21 15:44 Last Admin: 08/05/21 09:12 Dose: 0.125 mg Documented by: Diltiazem HCl (Diltiazem Hcl 120 Mg Capcr) 120 mg PO [facility] Stop: 09/02/21 08:59 Last Admin: 08/05/21 09:15 Dose: 120 mg Documented by: Furosemide (Furosemide 40 Mg Tab) 40 mg PO [facility] Stop: 09/01/21 20:59 Last Admin: 08/04/21 20:42 Dose: 40 mg Documented by: Furosemide (Furosemide 40 Mg Tab) [facility] [place] Stop: 09/02/21 08:59 Last Admin: 08/05/21 09:15 Dose: 80 mg Documented by: Levothyroxine Sodium (Levothyroxine Sodium 125 Mcg Tablet) [facility] Stop: 09/02/21 06:29 Last Admin: 08/05/21 06:09 Dose: 125 mcg Documented by: Metoprolol Succinate (Metoprolol Succ 50mg Ext Rel Tab) 200 mg PO BID [facility] Stop: 09/01/21 20:59 Last Admin: 08/05/21 09:15 Dose: 200 mg Documented by: Potassium Chloride (Potassium Chloride 10 Meq Tabcr) 10 meq [facility] [place] Stop: 09/02/21 08:59 Last Admin: 08/05/21 09:15 Dose: 10 meq Documented by: Sertraline HCl (Sertraline Hcl 50 Mg Tablet) 50 mg PO [facility] Stop: 09/02/21 08:59 Last Admin: 08/05/21 09:16 Dose: 50 mg Documented by: Spironolactone (Spironolactone 25 Mg Tab) 25 mg PO QAM [facility] Stop: 09/02/21 08:59 Last Admin: 08/05/21 09:16 Dose: 25 mg Documented by: Warfarin Sodium (Warfarin Sod 5 Mg Tab) 5 mg PO QDD [facility] Stop: 09/01/21 17:59 Last Admin: 08/04/21 16:45 Dose: 5 mg Documented by: (2) Cat bite: Plan: -Admit to [facility] on observation -IV Unasyn 3 g received in the ER, continue for now, can switch to Augmentin upon discharge likely tomorrow -No leukocytosis, WBC 7.84, trend with a.m. labs -Afebrile -Erythematous area of RLE outlined and dated by myself at bedside -Follow blood cultures x2-has been negative so far -Local wounds seem to be improving -We will continue IV antibiotic for now likely discharge tomorrow on oral Augmentin -Clinically much better without any ulceration at the bite site and the redness and tenderness have improved a lot -Has had physical therapy and likely discharge tomorrow morning -She missed the antibiotic for a little over 1 day and she was informed about it. -She received the 1st dose of oral Augmentin this AM and will finish the course as an OP (3) HTN (hypertension): Plan: -Patient missed all of her morning medications today including digoxin, diltiazem, metoprolol succinate so will administer those now -BP is stable in the high 120s over 70s -She has not received any fluids, encourage p.o. intake, allow diet -Blood pressure is controlled and remains on the lower side (4) Chronic atrial fibrillation: Plan: -Continue Coumadin, INR 1.5 today, was 3.17 on 07/29 so unlikely possibility of DVT, if worsening edema of RLE then can consider doppler u/s. - Hgb is stable at 13 - Vaginal bleeding is chronic, and has outpatient evaluation with baseball inspector and repairer Dr. Munoz scheduled for 08/23/21 as per EPIC, if worsening bleeding with increased INR then can consider AUTO HIKER consult while here in the hospital or sooner as outpatient. -Has PCP appt already scheduled for 08/13/21. (5) Systolic CHF: Plan: - Hx of such, will hold on lasix for now, can resume tomorrow - Last echo reviewed with outpatient EPIC by myself, from Jun 2018: -Mild concentric LVH, EF of 40 to 45%, aortic valve sclerosis is moderate, moderate MR, mild TR, no longer has any pulmonary hypertension compared to prior studies in June 2016 -No evidence of fluid overload and/or CHF (6) Hypothyroidism: Plan: -Continue levothyroxine (7) Mild obstructive sleep apnea: Plan: -Wears 2L NC at bedtime, not CPAP, No oxygen during the day DVT PPx: - teds, scds, continue Coumadin -INR of 2.8 CODE: Full code Dispo: From home, observation, Likely discharge tomorrow Admission and Anticipated Discharge Date Admission Date: August 04, 2021 Subjective 08/04/2011 The patient was seen and examined in medical floor She has been weak and lethargic with with some pain in the legs Denies any other symptoms 08/04/2021 The patient was seen and examined in medical floor She has been feeling much better and denies any pain in the legs No fever and or chills and does not have any other significant symptoms 08/05/2021 The patient was seen and examined in the medical floor She has been feeling much better and denies any signs of leg pain and/or redness involving the right lower leg Has had physical therapy and will be discharged home this afternoon Review of Systems Review of Systems: All systems reviewed and are unremarkable except as noted below Physical Exam Physical Exam: Sitting on a chair without any acute distress Constitutional: well developed, well nourished, + ill appearing and + obese Eyes: PERRL, conjunctivae normal, anicteric sclerae ENMT: external ear and nose normal, oropharynx normal Neck: trachea midline, no thyromegaly Respiratory: no respiratory distress Auscultation: + diminished lung sounds and + crackles (Minimal crackles at the bases) Cardiovascular: Rate/Rhythm: regular rate and regular rhythm; not tachycardic Heart Sounds: normal S1 and normal S2; no murmur Extremities: + edema (1+ edema bilaterally. With redness involving the right lower leg-improved ) Gastrointestinal (Abdomen): Inspection/Auscultation: normal bowel sounds; abdomen not distended Percussion/Palpation: abdomen soft; abdomen nontender Neurologic: Alert, awake and oriented x3. No focal sensory no motor deficit appreciated Results & Data Results & Data ([facility]) Vital Signs (Past 12 Hours) Vital Signs Temp Pulse Pulse Resp BP Pulse Ox 08/05/21 09:12 75 08/05/21 07:42 36.4 C L 68 15 128/74 95 (1) Systolic CHF Heart failure chronicity: chronic Qualified Code(s): I50.22 - Chronic systo lic (congestive) heart failure (2) Cellulitis Laterality: right Site of cellulitis: extremity Site of cellulitis of extremity: lower extremity Qualified Code(s): L03.115 - Cellulitis of right lower limb (3) Hypothyroidism Hypothyroidism type: unspecified Qualified Code(s): E03.9 - Hypothyroidism, unspecified (4) Cat bite Encounter type: initial encounter Qualified Code(s): W55.01XA - Bitten by cat, initial encounter (5) HTN (hypertension) Hypertension type: essential hypertension Qualified Code(s): I10 - Essential (primary) hypertension
[2021-08-05 12:16] VITALS: PULSE 68
--- NOTE | 2021-08-06 08:57 | Discharge Summary ---
Date of Service August 06, 2021 Admission HPI Per Admitting Provider This is a 81 yo F with PMhx of afib on coumadin, HTN, HD, systolic CHF, pacemaker, hypothyroidism, GERD, and anxiety who presents from home after accidentally stepping on her pet cat's tail, and was bite/scratched on the right lower leg yesterday around 10am. She has been able to walk on her foot without much difficulty. The area around where the cat bit her is dark red and warm, there are also numerous scratch brown around the medial aspect of her lower leg however these do not appear to be acutely infected. Her who is present at bedside stated that he helped clean the area with peroxide yesterday. They have kept Neosporin on it overnight. She is able to move her ankle however reports some tightness, no acute worsening pain. There is no significant worsening swelling of the right leg compared to the left. She denies any fever, chills or sweats. She has also had issues with vaginal bleeding as an ongoing issue,and was advised by her BPM ARCHITECT to reduce reduce her amount of Coumadin to 2.5 on 07/31, and then advised to take a full dose of 5 mg on 08/01. INR today is 1.5. She reports having to change multiple pads due to heavy bleeding with multiple clots the sizes of quarters. She has been following with Dr. Munoz with [facility] BPM ARCHITECT as an outpatient and is scheduled for an outpatient biopsy in the near future. Admission Exam Per Admitting Provider Physical Exam: General: awake, alert, no apparent distress, obese with BMI of 39.6 Head: Normocephalic, atraumatic ENT: PERRL, EOMI, no pharyngeal exudate, mucous membranes moist Chest: Clear to auscultation, on room air,+ expiratory wheeze over the right marquez. Cardiac: Regular rate and rhythm, + loud systolic murmur grade 3/6, no JVD, normal peripheral pulses, good capillary refill Abdominal: NABS x 4 quadrants, soft, nondistended, nontender to palpation, no rebound or guarding Extremities: Right lower extremity with area of erythema which extends from the ankle midway up the garcia, cat bite on anterior aspect, multiple scratches on medial aspect of lower extremity, minimal edema around the ankle. Otherwise normal inspection, no peripheral edema or erythema, calfs nontender to palpation Psych: Normal mood and affect Neuro: AAO x 3, strength intact bilaterally and rated 5/5, no motor deficits, speech is clear, no peripheral sensory deficits Principal Diagnosis Cat bite, Cellulitis of right lower leg Discharge Exam Sitting on a chair without any acute distress Constitutional well developed, well nourished, + ill appearing and + obese Eyes PERRL, conjunctivae normal, anicteric sclerae ENMT external ear and nose normal, oropharynx normal Neck trachea midline, no thyromegaly Respiratory no respiratory distress Auscultation: + diminished lung sounds and + crackles (Minimal crackles at the bases) Cardiovascular Rate/Rhythm: regular rate and regular rhythm; not tachycardic Heart Sounds: normal S1 and normal S2; no murmur Extremities: + edema (1+ edema bilaterally. With redness involving the right lower leg-improved ) Gastrointestinal (Abdomen) Inspection/Auscultation: normal bowel sounds; abdomen not distended Percussion/Palpation: abdomen soft; abdomen nontender Discharge Data Allergies Allergy/AdvReac Type Severity Reaction Status Date / Time No Known Allergies Allergy Verified 08/02/21 13:56 Consultations 08/02/21 15:06 ED Decision to Admit Stat Hospital Course (1) Cellulitis: Current Inpatient Medications (2) Cat bite: -Admit to [facility] on observation -IV Unasyn 3 g received in the ER, continue for now, can switch to Augmentin upon discharge likely tomorrow -No leukocytosis, WBC 7.84, trend with a.m. labs -Afebrile -Erythematous area of RLE outlined and dated by myself at bedside -Follow blood cultures x2-has been negative so far -Local wounds seem to be improving -We will continue IV antibiotic for now likely discharge tomorrow on oral Augmentin -Clinically much better without any ulceration at the bite site and the redness and tenderness have improved a lot -Has had physical therapy and likely discharge tomorrow morning -She missed the antibiotic for a little over 1 day and she was informed about it. -She received the 1st dose of oral Augmentin this AM and will finish the course as an OP (3) HTN (hypertension): -Patient missed all of her morning medications today including digoxin, diltiazem, metoprolol succinate so will administer those now -BP is stable in the high 120s over 70s -She has not received any fluids, encourage p.o. intake, allow diet -Blood pressure is controlled and remains on the lower side (4) Chronic atrial fibrillation: -Continue Coumadin, INR 1.5 today, was 3.17 on 07/29 so unlikely possibility of DVT, if worsening edema of RLE then can consider doppler u/s. - Hgb is stable at 13 - Vaginal bleeding is chronic, and has outpatient evaluation with shipping technician Dr. Munoz scheduled for 08/23/21 as per EP[facility], if worsening bleeding with increased INR then can consider GANG BORE OPERATOR consult while here in the hospital or sooner as outpatient. -Has PCP appt already scheduled for 08/13/21. (5) Systolic CHF: - Hx of such, will hold on lasix for now, can resume tomorrow - Last echo reviewed with outpatient EPIC by myself, from Jun 2018: -Mild concentric LVH, EF of 40 to 45%, aortic valve sclerosis is moderate, moderate MR, mild TR, no longer has any pulmonary hypertension compared to prior studies in June 2016 -No evidence of fluid overload and/or CHF (6) Hypothyroidism: -Continue levothyroxine (7) Mild obstructive sleep apnea: -Wears 2L NC at bedtime, not CPAP, No oxygen during the day DVT PPx: - teds, scds, continue Coumadin -INR of 2.8 CODE: Full code Dispo: From home, observation, Likely discharge tomorrow Total Time Total Time Spent Total Time Spent (In Minutes): 35 minutes Discharge Plan Discharge Items Patient Disposition: Home - Self-Care Reason For Visit: CELLULITIS Discharge Diagnosis: Cat bite, Cellulitis of right lower leg Condition on Discharge: Good Activity: Resume your previous activity Non-emergency contact: Primary Care Provider Call non-emergency contact if: you have any medication questions and your symptoms worsen Follow-up/Referrals: Derik Sanz DO [Primary Care Provider] - (Date & Time 08/12/2021 2:00 PM Provider Derik Sanz DO Department Family Practice [facility] ) Diet: Heart Healthy Addtl Attending Provider Instructions: Please take precautions to avoid fall Finish your course of antibiotic Give appointment with your healthcare providers Keep regular follow-up with coagulation clinic Pending Studies at Discharge: No Stand-Alone Forms: My [facility], Smoking Cessation Medications and DC Order Prescriptions: New amoxicillin-pot clavulanate 875-125 mg tablet 1 tab PO BID Qty: 10 RF: 0 Continued furosemide 40 mg tablet See Rx Instructions .ROUTE .COMPLEX RF: 0 potassium chloride 10 mEq capsule, extended release 10 meq PO QAM RF: 0 metoprolol succinate 200 mg tablet extended release 24 hr 200 mg PO BID RF: 0 levothyroxine 125 mcg tablet 125 mcg PO DAILYBB RF: 0 warfarin 5 mg tablet 5 mg PO QDD RF: 0 diltiazem HCl 120 mg capsule,extended release 24hr 120 mg PO QAM RF: 0 digoxin 125 mcg (0.125 mg) tablet 125 mcg PO QAM RF: 0 sertraline 50 mg tablet 50 mg PO QAM RF: 0 spironolactone 25 mg tablet 25 mg PO QAM RF: 0 atorvastatin 20 mg tablet 20 mg PO HS RF: 0 Discharge Orders: Discharge Order (Routine); Ordered 08/05/21 Ordered By: Jamin Moreira/Other Patient Handouts: Cellulitis Dc, ED Cellulitis Admission Data Admit Date/Time: 08/04/21 14:55 Attending Provider: Jamin Bhagat Admit Provider: Donald Hart Primary Care Provider: Derik Sanz Other Providers: Donald Hart Other Interventions: Discharge Summary Assessment (RN) Last Done: 08/05/21 12:13
== END 2021-08-05 13:14 | disposition home or self-care (01) | DRG 603 ==
LOC: 3N 11:38 → ED 11:38 → SUATTDRO 15:17 → 3N 16:45